=== PATIENT | female | born 1945 | race Caucasian/White ===

== ENCOUNTER 2019-07-20 06:36 | Day surgery (SDC) | payer MEDICARE, OTHER ==
[2019-07-19 09:37] VITALS: BMI 23.2
[~2019-07-20 06:36] MED LIST: HEPARIN SODIUM,PORCINE 5,000 UNIT/ML 1 ML VIAL SQ ONE; Pre Op ABX Message 1 EACH MISC MISCELLANE ONE
[2019-07-20] MEDS ORDERED: MORPHINE SULFATE 2 MG/ML SYRINGE IV PRN (06:42)
[2019-07-20] MEDS ORDERED: LACTATED RINGERS 1,000 ML IV SCH (06:42)
[2019-07-20] MEDS ORDERED: LIDOCAINE 1% 20 ML VIAL (10MG/ML) FOR IV START INTRADERMA PRN (06:42)
[2019-07-20] MEDS ORDERED: DEXAMETHASONE SOD PHOSPHATE 10 MG/ML 1 ML VIAL IV ONE (06:42)
[2019-07-20] MEDS ORDERED: ONDANSETRON 4 MG/2 ML VIAL IVP PRN (06:42)
[2019-07-20] MEDS ORDERED: ONDANSETRON 4 MG/2 ML VIAL IVP ONE (06:42)
[2019-07-20 07:01] VITALS: TEMP 98.4
[2019-07-20] MEDS ORDERED: MIDAZOLAM 2 MG/2 ML VIAL ONE (07:40)
[2019-07-20] MEDS ORDERED: PROPOFOL 10 MG/ML 20 ML VIAL IV ONE (07:40)
[2019-07-20] MEDS ORDERED: fentaNYL (PF) 50 MCG/ML 2 ML AMP ONE (07:40)
[2019-07-20] MEDS ORDERED: ceFAZolin 1,000 MG VIAL IVPB ONE (07:45)
--- NOTE | 2019-07-20 07:54 | P.GSHP ---
History of Present Illness H&P Date: 07/20/19 Chief Complaint: right lower extremity squamous cell carcinoma, left lower e xtremity [place] this is a 74-year-old female who underwent previous skin biopsy by Dr. Chan. Patient's found have a right lower extremity squamous cell carcinoma and a left lower extremity keratocanthoma. She presents today for excision. Past Medical History Past Medical History: GERD/Reflux, Hypertension, Vascular Disorder Additional Past Medical History / Comment(s): hx bleeding ulcer. wound left foot. lt leg swelling since bypass. loud ringing in ears History of Any Multi-Drug Resistant Organisms: None Reported Past Surgical History: Joint Replacement Additional Past Surgical History / Comment(s): lt leg bypass x3 with stent in groin, lt hip replacement, rt foot with hardware Past Anesthesia/Blood Transfusion Reactions: Previous Problems w/ Anesthesia Additional Past Anesthesia/Blood Transfusion Reaction / Comment(s): after foot surgery developed loud ringing in ears which continues Past Psychological History: No Psychological Hx Reported Smoking Status: Former smoker Past Alcohol Use History: Daily Additional Past Alcohol Use History / Comment(s): 06/28/16 quit smoking Past Drug Use History: None Reported - Past Family History Mother Family Medical History: Unable to Obtain Medications and Allergies Home Medications Medication Instructions Recorded Confirmed Type Ferrous Sulfate [Feosol] 325 mg PO DAILY 07/19/19 07/19/19 History Lansoprazole [Prevacid] 30 mg PO DAILY 07/19/19 07/19/19 History amLODIPine [Norvasc] 5 mg PO DAILY 07/19/19 07/19/19 History hydrALAZINE HCL [Apresoline] 25 mg PO Q48H 07/19/19 07/19/19 History traMADol HCL 50 mg PO BID PRN 07/19/19 07/19/19 History Allergies Allergy/AdvReac Type Severity Reaction Status Date / Time adhesive Allergy skin Verified 07/19/19 09:20 breaks down Surgical - Exam Vital Signs Temp Pulse Resp BP Pulse Ox 98.4 F 94 20 153/81 96 07/20/19 06:59 07/20/19 06:59 07/20/19 06:59 07/20/19 06:59 07/20/19 06:59 - General well developed, well nourished, no distress - Eyes PERRL - ENT normal pinna - Neck no masses - Respiratory normal expansion - Cardiovascular Rhythm: regular - Abdomen Abdomen: soft, non tender - Integumentary 2 cm squamous cell carcinoma of right lower extremity, 1.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 We'll perform excision.
[2019-07-20] MEDS ORDERED: BUPIVACAIN-EPI 0.25%-1:200,000 30 ML VIAL SQ ONE ×3 (08:03)
[2019-07-20 08:35] VITALS: RESP 18
[2019-07-20 08:50] VITALS: BP 124/79; PULSE 72
--- NOTE | 2019-07-20 09:01 | P.OP ---
Date of Procedure: 07/20/19 Preoperative Diagnosis: Right lower extremity squamous cell carcinoma Left lower extremity Keratocanthoma Postoperative Diagnosis: Same Procedure(s) Performed: Wide local excision of left and right lower extremity skin lesion Anesthesia: MAC, local Surgeon: Darrel Bhatia Estimated Blood Loss (ml): 5 Pathology: other (Right and left lower extremity skin lesion) Condition: stable Disposition: PACU Description of Procedure: The patient's placed on the operating table in supine position. She received IV sedation. Her lower extremities were prepped and draped usual sterile fashion. The right lower*the lesion was excised first. The area was anesthetized 1% local Xylocaine. An elliptical skin incision was made around the skin lesion using a 10 blade. The specimen was dissected using left cautery. The wound was inspected for hemostasis. The skin was closed interrupted 3-0 Monocryl suture. A marking stitch was placed on the cephalad portion specimen. The specimen measured 3 x 2 cm The specimen was sent to pathology.. Next the left lower extremity skin lesion was anesthetized with 1% local Xylocaine. Using a 15 blade the skin was incised in elliptical fashion. The Bovie hemostasis. The specimen sent to pathology, a marking stitch was placed on the cephalad portion of the specimen. Specimen measured 2 x 3 cm The wound was closed with 3-0 nylon suture. Sterile dressing was applied. The patient tolerated the procedure well and sent to recovery room in stable condition.
== END 2019-07-20 09:35 | disposition home or self-care (01) ==
LOC: OR 06:36
PROVIDERS: ATTEND Surgery
DX: C44.721 Squamous cell carcinoma of skin of unspecified lower limb, including hip (principal); L57.0 Actinic keratosis; L72.0 Epidermal cyst; K21.9 Gastro-esophageal reflux disease without esophagitis; I10 Essential (primary) hypertension; H93.19 Tinnitus, unspecified ear; I73.9 Peripheral vascular disease, unspecified; Z87.891 Personal history of nicotine dependence; Z79.899 Other long term (current) drug therapy; Z96.642 Presence of left artificial hip joint; Z91.048 Other nonmedicinal substance allergy status; Z87.19 Personal history of other diseases of the digestive system; Z95.820 Peripheral vascular angioplasty status with implants and grafts
CPT/HCPCS: 88305; 11403; 11402; J2250; J1100; J2405; J0690; J3010; J2704

== ENCOUNTER 2020-06-14 00:14 | Inpatient (IN) | payer MEDICARE, OTHER ==
[2020-06-14] MEDS ORDERED: MORPHINE SULFATE 4 MG/ML SYRINGE IV STA ×2 (00:57→03:06)
[2020-06-14] MEDS ORDERED: SODIUM CHLORIDE 0.9% 500 ML 500 ML IV STA (00:57)
[2020-06-14 03:02] LABS: ALT 82 U/L (4-34); AST 272 U/L (14-36); Albumin 2.4 g/dL (3.5-5.0); Alcohol 75 mg/dL; Alkaline Phosphatase 194 U/L (38-126); Blood Urea Nitrogen 50 mg/dL (7-17); Calcium 8.7 mg/dL (8.4-10.2); Chloride 101 mmol/L (98-107); Magnesium 2.4 mg/dL (1.6-2.3); Sodium 125 mmol/L (137-145); Total Bilirubin 4.9 mg/dL (0.2-1.3); Total Protein 6.1 g/dL (6.3-8.2)
[2020-06-14 03:07] LABS: African American GFR (CKD) 15 (>60 ml/min/1.73 sqM); Non-African American GFR(CKD) 13 (>60 ml/min/1.73 sqM)
[2020-06-14 03:11] LABS: Glucose 23 mg/dL (74-99)
[2020-06-14 03:12] LABS: Carbon Dioxide <5 mmol/L (22-30)
[2020-06-14] MEDS ORDERED: SODIUM CHLORIDE 0.9% 1,000 ML IV ONE (03:15)
[2020-06-14] MEDS ORDERED: DEXTROSE 50% SYRINGE 50 ML IVP STA ×2 (03:16→07:29)
[2020-06-14] MEDS ORDERED: SODIUM BICARB 8.4% 50 ML SYR (1 MEQ/ML) IV STA (03:17)
[2020-06-14 03:18] LABS: Anisocytosis Slight; HCT 34.6 % (34.0-46.0); HGB 9.3 gm/dL (11.4-16.0); Hypochromasia Marked; MCH 27.2 pg (25.0-35.0); MCHC 26.8 g/dL (31.0-37.0); MCV 101.3 fL (80.0-100.0); Macrocytosis Moderate; Mean Platelet Volume 10.2; Platelet Count 125 k/uL (150-450); RBC 3.42 m/uL (3.80-5.40); RDW 18.4 % (11.5-15.5)
[2020-06-14] MEDS ORDERED: CALCIUM GLUCONATE 1 GM in SODIUM CHLORIDE 0.9% 100 ML IVPB ONE ×2 (03:18→16:00)
[2020-06-14 03:21] LABS: Glucose,Whole Blood 33 mg/dL (75-99)
[2020-06-14 03:59] LABS: Glucose,Whole Blood 99 mg/dL (75-99)
[2020-06-14 04:13] LABS: Band Neutrophils % 28 %; Large Platelets Present; Lymphocytes # (M) 0.69 k/uL (1.0-4.8); Metamyelocytes # (M) 0.23 k/uL (0); Metamyelocytes % 1 %; Monocytes # (M) 2.07 k/uL (0-1.0); Neutrophils % (M) 59 %; Nucleated Red Blood Cells 0 /100 WBC (0-0); Total Cells Counted 100
[2020-06-14 04:15] LABS: Basophilic Stippling Present
[2020-06-14] MEDS ORDERED: VANCOMYCIN IV PER PHARMACY 1 EACH MISC MISCELLANE PRN (04:18)
[2020-06-14] MEDS ORDERED: VANCOMYCIN 1,000 MG in SODIUM CHLORIDE 0.9% 250 ML IVPB STA (04:23)
[2020-06-14] MEDS ORDERED: ACETAMINOPHEN TAB 325 MG TAB PO STA (04:45)
--- NOTE | 2020-06-14 04:56 | ED ---
General Adult HPI - General Chief complaint: Fall Stated complaint: Fall Time Seen by Provider: 06/14/20 00:20 Source: patient, EMS Mode of arrival: EMS Limitations: no limitations - History of Present Illness Initial comments: this patient is a 75-year-old womanbrought by ambulance to have evaluation for generalized weakness. The patient states had phoned EMS tonightafter she had slumped to the ground and not been able to get up due to generalized weakness. The patient does note that over the past few days to a little over a week or so,she has been having worsening of bilateral leg pain, which she describes as burning and aching. The pain is worse if she touches her legs or with movements. She has noted that there has been weeping from ulcerations going back longer than that. Patient has not noted fever or chills. No chest pain or dyspnea. No cough. -: days(s) Location: left, right, lower extremity Radiation: non-radiation Quality: burning Consistency: constant Improves with: none Worsens with: movement Associated Symptoms: weakness Treatments Prior to Arrival: none - Related Data Home Medications Medication Instructions Recorded Confirmed Ferrous Sulfate [Feosol] 325 mg PO DAILY 07/19/19 06/14/20 amLODIPine [Norvasc] 5 mg PO DAILY 07/19/19 06/14/20 Furosemide [Lasix] 20 mg PO DAILY 06/14/20 06/14/20 Vit C/E/Zn/Coppr/Lutein/Zeaxan 2 cap PO DAILY 06/14/20 06/14/20 [Preservision Areds 2 Softgel] Allergies Allergy/AdvReac Type Severity Reaction Status Date / Time adhesive Allergy skin Verified 06/14/20 09:20 breaks down Review of Systems ROS Statement: Those systems with pertinent positive or pertinent negative responses have been documented in the HPI. ROS Other: All systems not noted in ROS Statement are negative. Constitutional: Reports: weakness. Denies: fever, chills Respiratory: Denies: cough, dyspnea, wheezes Cardiovascular: Reports: edema. Denies: chest pain, palpitations, dyspnea on exertion, orthopnea Gastrointestinal: Denies: abdominal pain, nausea, vomiting, diarrhea, constipation Genitourinary: Denies: dysuria, hematuria Musculoskeletal: Denies: back pain Skin: Reports: lesions (leg ulcers). Denies: rash Neurological: Denies: headache, weakness, numbness Past Medical History Past Medical History: GERD/Reflux, Hypertension, Vascular Disorder Additional Past Medical History / Comment(s): hx bleeding ulcer. wound left foot. lt leg swelling since bypass. loud ringing in ears History of Any Multi-Drug Resistant Organisms: None Reported Past Surgical History: Joint Replacement Additional Past Surgical History / Comment(s): lt leg bypass x3 with stent in groin, lt hip replacement, rt foot with hardware Past Anesthesia/Blood Transfusion Reactions: Previous Problems w/ Anesthesia Additional Past Anesthesia/Blood Transfusion Reaction / Comment(s): after foot surgery developed loud ringing in ears which continues Past Psychological History: No Psychological Hx Reported Past Alcohol Use History: Daily Past Drug Use History: None Reported - Past Family History Mother Family Medical History: Unable to Obtain General Exam Limitations: no limitations General appearance: alert, in no apparent distress Head exam: Present: atraumatic, normocephalic Eye exam: Present: normal appearance. Absent: scleral icterus, conjunctival injection ENT exam: Present: mucous membranes dry Neck exam: Present: normal inspection, full ROM. Absent: tenderness, meningismus Respiratory exam: Absent: respiratory distress, wheezes, rales, rhonchi, stridor Cardiovascular Exam: Present: regular rate, normal rhythm GI/Abdominal exam: Present: soft. Absent: distended, tenderness, guarding, rebound, rigid, mass Extremities exam: Present: normal inspection, normal capillary refill, pedal edema. Absent: calf tenderness Back exam: Present: normal inspection. Absent: CVA tenderness (R), CVA tenderness (L) Neurological exam: Present: alert, CN II-XII intact Skin exam: Present: warm, dry, intact, normal color. Absent: rash Course Vital Signs 06/14/20 06/14/20 06/14/20 00:15 01:31 01:50 Temperature 93.4 F L Pulse Rate 77 69 Respiratory 18 18 Rate Blood Pressure 96/55 104/62 O2 Sat by Pulse 99 97 Oximetry 06/14/20 06/14/20 06/14/20 03:16 03:31 05:10 Temperature 93.7 F L Pulse Rate 90 93 98 Respiratory 16 Rate Blood Pressure 87/59 110/69 88/58 O2 Sat by Pulse 98 Oximetry 06/14/20 06/14/20 06/14/20 05:41 06:48 08:00 Temperature 97.3 F L 97.3 F L 97.3 F L Pulse Rate 99 90 Respiratory 18 16 Rate Blood Pressure 99/59 91/70 O2 Sat by Pulse 98 98 Oximetry 06/14/20 06/14/20 06/14/20 09:00 10:00 11:00 Temperature 97.4 F L Pulse Rate 82 72 79 Respiratory 16 16 16 Rate Blood Pressure 86/57 90/48 98/59 O2 Sat by Pulse 98 98 98 Oximetry 06/14/20 06/14/20 06/14/20 12:00 13:00 14:00 Temperature Pulse Rate 72 72 77 Respiratory 16 16 16 Rate Blood Pressure 101/57 100/60 101/61 O2 Sat by Pulse 98 98 99 Oximetry 06/14/20 14:44 Temperature 97.4 F L Pulse Rate 77 Respiratory 16 Rate Blood Pressure 101/61 O2 Sat by Pulse 99 Oximetry - Reevaluation(s) Reevaluation #1: 06/14/20 04:55 after discussions with patient, she expresses desire for no intubation/no code She does want medical therapy including antibiotics, pain medication. Medical Decision Making - Medical Decision Making patient 75-year-old woman transferred here for weakness and found to have significant bilateral lower extremity stasis ulcers. Note that we did recommend central line placement for this patient for multiple medications and fluids, but patient is declining. She is admittedto have further evaluation and treatment as well as having surgical consultation, nephrology consultation - Lab Data Result diagrams: 06/19/20 07:16 06/20/20 08:15 Lab Results 06/14/20 06/14/20 06/14/20 Range/Units 02:30 02:30 02:30 WBC 23.0 H (3.8-10.6) k/uL RBC 3.42 L (3.80-5.40) m/uL Hgb 9.3 L (11.4-16.0) gm/dL Hct 34.6 (34.0-46.0) % MCV 101.3 H (80.0-100.0) fL MCH 27.2 (25.0-35.0) pg MCHC 26.8 L (31.0-37.0) g/dL RDW 18.4 H (11.5-15.5) % Plt Count 125 L (150-450) k/uL Neutrophils % (Manual) 59 % Band Neuts % (Manual) 28 % Lymphocytes % (Manual) 3 % Monocytes % (Manual) 9 % Metamyelocytes % 1 % Neutrophils # (Manual) 20.00 H (1.3-7.7) k/uL Lymphocytes # (Manual) 0.69 L (1.0-4.8) k/uL Monocytes # (Manual) 2.07 H (0-1.0) k/uL Metamyelocytes # (Man) 0.23 H (0) k/uL Nucleated RBCs 0 (0-0) /100 WBC Manual Slide Review Performed Large Platelets Present Hypochromasia Marked Basophilic Stippling Present Anisocytosis Slight Macrocytosis Moderate Sodium 125 L (137-145) mmol/L Potassium 7.0 H* (3.5-5.1) mmol/L Chloride 101 (98-107) mmol/L Carbon Dioxide <5 L* (22-30) mmol/L Anion Gap mmol/L BUN 50 H (7-17) mg/dL Creatinine 3.34 H (0.52-1.04) mg/dL Est GFR (CKD-EPI)AfAm 15 (>60 ml/min/1.73 sqM) Est GFR (CKD-EPI)NonAf 13 (>60 ml/min/1.73 sqM) Glucose 23 L* (74-99) mg/dL POC Glucose (mg/dL) (75-99) mg/dL POC Glu Rope Tier ID Lactic Ac Sepsis Rflx Plasma Lactic Acid Levi 10.1 H* (0.7-2.0) mmol/L Calcium 8.7 (8.4-10.2) mg/dL Magnesium 2.4 H (1.6-2.3) mg/dL Total Bilirubin 4.9 H (0.2-1.3) mg/dL AST 272 H (14-36) U/L ALT 82 H (4-34) U/L Alkaline Phosphatase 194 H (38-126) U/L Total Protein 6.1 L (6.3-8.2) g/dL Albumin 2.4 L (3.5-5.0) g/dL Serum Alcohol 75 mg/dL 06/14/20 06/14/20 06/14/20 Range/Units 03:11 03:18 03:57 WBC (3.8-10.6) k/uL RBC (3.80-5.40) m/uL Hgb (11.4-16.0) gm/dL Hct (34.0-46.0) % MCV (80.0-100.0) fL MCH (25.0-35.0) pg MCHC (31.0-37.0) g/dL RDW (11.5-15.5) % Plt Count (150-450) k/uL Neutrophils % (Manual) % Band Neuts % (Manual) % Lymphocytes % (Manual) % Monocytes % (Manual) % Metamyelocytes % % Neutrophils # (Manual) (1.3-7.7) k/uL Lymphocytes # (Manual) (1.0-4.8) k/uL Monocytes # (Manual) (0-1.0) k/uL Metamyelocytes # (Man) (0) k/uL Nucleated RBCs (0-0) /100 WBC Manual Slide Review Large Platelets Hypochromasia Basophilic Stippling Anisocytosis Macrocytosis Sodium (137-145) mmol/L Potassium (3.5-5.1) mmol/L Chloride (98-107) mmol/L Carbon Dioxide (22-30) mmol/L Anion Gap mmol/L BUN (7-17) mg/dL Creatinine (0.52-1.04) mg/dL Est GFR (CKD-EPI)AfAm (>60 ml/min/1.73 sqM) Est GFR (CKD-EPI)NonAf (>60 ml/min/1.73 sqM) Glucose (74-99) mg/dL POC Glucose (mg/dL) 33 L 99 (75-99) mg/dL POC Glu Rope Tier ID Lina Preciado McKenna Lactic Ac Sepsis Rflx Y Plasma Lactic Acid Levi (0.7-2.0) mmol/L Calcium (8.4-10.2) mg/dL Magnesium (1.6-2.3) mg/dL Total Bilirubin (0.2-1.3) mg/dL AST (14-36) U/L ALT (4-34) U/L Alkaline Phosphatase (38-126) U/L Total Protein (6.3-8.2) g/dL Albumin (3.5-5.0) g/dL Serum Alcohol mg/dL 06/14/20 Range/Units 05:32 WBC (3.8-10.6) k/uL RBC (3.80-5.40) m/uL Hgb (11.4-16.0) gm/dL Hct (34.0-46.0) % MCV (80.0-100.0) fL MCH (25.0-35.0) pg MCHC (31.0-37.0) g/dL RDW (11.5-15.5) % Plt Count (150-450) k/uL Neutrophils % (Manual) % Band Neuts % (Manual) % Lymphocytes % (Manual) % Monocytes % (Manual) % Metamyelocytes % % Neutrophils # (Manual) (1.3-7.7) k/uL Lymphocytes # (Manual) (1.0-4.8) k/uL Monocytes # (Manual) (0-1.0) k/uL Metamyelocytes # (Man) (0) k/uL Nucleated RBCs (0-0) /100 WBC Manual Slide Review Large Platelets Hypochromasia Basophilic Stippling Anisocytosis Macrocytosis Sodium (137-145) mmol/L Potassium (3.5-5.1) mmol/L Chloride (98-107) mmol/L Carbon Dioxide (22-30) mmol/L Anion Gap mmol/L BUN (7-17) mg/dL Creatinine (0.52-1.04) mg/dL Est GFR (CKD-EPI)AfAm (>60 ml/min/1.73 sqM) Est GFR (CKD-EPI)NonAf (>60 ml/min/1.73 sqM) Glucose (74-99) mg/dL POC Glucose (mg/dL) (75-99) mg/dL POC Glu Rope Tier ID Lactic Ac Sepsis Rflx Plasma Lactic Acid Levi 8.5 H* (0.7-2.0) mmol/L Calcium (8.4-10.2) mg/dL Magnesium (1.6-2.3) mg/dL Total Bilirubin (0.2-1.3) mg/dL AST (14-36) U/L ALT (4-34) U/L Alkaline Phosphatase (38-126) U/L Total Protein (6.3-8.2) g/dL Albumin (3.5-5.0) g/dL Serum Alcohol mg/dL Critical Care Time Critical Care Time: Yes (40 minutes) Disposition Clinical Impression: Lower extremity cellulitis, Septic shock, Generalized weakness, Hyperkalemia Disposition: ADMITTED IP TO THIS HOSP Condition: Critical
[2020-06-14] MEDS ORDERED: MORPHINE SULFATE 2 MG/ML SYRINGE IVP STA (05:01)
[2020-06-14] MEDS ORDERED: PIPERACILLIN-TAZOBACTAM 3.375 GM in SODIUM CHLORIDE 0.9% 100 ML IVPB ONE (05:45)
[2020-06-14 06:03] LABS: ALT 86 U/L (4-34); AST 337 U/L (14-36); Albumin 2.1 g/dL (3.5-5.0); Alkaline Phosphatase 172 U/L (38-126); Blood Urea Nitrogen 49 mg/dL (7-17); Calcium 8.5 mg/dL (8.4-10.2); Chloride 104 mmol/L (98-107); Sodium 128 mmol/L (137-145); Total Bilirubin 4.6 mg/dL (0.2-1.3); Total Protein 5.7 g/dL (6.3-8.2)
[2020-06-14 06:08] LABS: African American GFR (CKD) 16 (>60 ml/min/1.73 sqM); Non-African American GFR(CKD) 14 (>60 ml/min/1.73 sqM)
[2020-06-14] MEDS ORDERED: SODIUM CHLORIDE 0.9% 500 ML 500 ML IV ONE (06:09)
[2020-06-14 06:11] LABS: Carbon Dioxide <5 mmol/L (22-30); Glucose 47 mg/dL (74-99)
[2020-06-14 06:12] LABS: Potassium 6.4 mmol/L (3.5-5.1)
[2020-06-14 07:19] LABS: Glucose,Whole Blood 53 mg/dL (75-99)
[2020-06-14 08:18] LABS: Glucose,Whole Blood 108 mg/dL (75-99)
[2020-06-14] MEDS: FAMOTIDINE 20 MG/2 ML VIAL IV SCH ×2 (08:31→21:20)
[2020-06-14] MEDS ORDERED: SODIUM CHLORIDE 0.9% 500 ML 250 ML IV ONE (10:23)
[2020-06-14] MEDS: SODIUM CHLORIDE 0.9% 1,000 ML IV SCH ×2 (12:39→21:21)
--- NOTE | 2020-06-14 13:31 | XR ---
EXAMINATION TYPE: XR chest 1V portable DATE OF EXAM: 06/14/2020 CLINICAL HISTORY: CHF. TECHNIQUE: Portable frontal view of the chest. COMPARISON: None FINDINGS: The cardiomediastinal silhouette is within normal limits for size. Pulmonary vasculature i s normal. Patchy airspace opacity over the right infrahilar lung bases. Subsegmental atelectasis over the left mid lung. No pleural effusion, or pneumothorax seen. Old right healed fracture deformities. . IMPRESSION: Right infrahilar airspace opacity may represent atelectasis and/or pneumonia..
[2020-06-14] MEDS: PIPERACILLIN-TAZOBACTAM 3.375 GM in SODIUM CHLORIDE 0.9% 100 ML IVPB SCH ×2 (14:57→21:20)
[2020-06-14] MEDS ORDERED: SODIUM POLYSTYRENE SULFONATE 15 GM/60 ML BOTTLE PO STA (15:05)
[2020-06-14] MEDS ORDERED: ACETAMINOPHEN TAB 325 MG TAB PO PRN (15:06)
--- NOTE | 2020-06-14 15:21 | P.HPIM ---
History of Present Illness 75-year-old womanbrought by ambulance to have evaluation for generalized weakness. The patient states had phoned EMS tonightafter she had slumped to the ground and not been able to get up due to generalized weakness. The patient does note that over the past few days to a little over a week or so,she has been having worsening of bilateral leg pain, which she describes as burning and aching. The pain is worse if she touches her legs or with movements. She has noted that there has been weeping from ulcerations going back longer than that. Patient has not noted fever or chills. No chest pain or dyspnea. No cough. She is found to be severely septic with bilateral extensive cellulitis and with gangrene patient has is discoloration of both legs going on for about 2 months. Had gangrenous changes extend up to both knees. Patient has highly elevated liver blood cell count of 22,000 patient was started on vancomycin and Zosyn. Patient has significant other provided abnormalities including highly elevated potassium of 6.4 low sodium. Severe metabolic acidosis. Highly elevated lactic acid of around 8.4 patient has borderline blood pressure received multiple boluses of IV fluids patient will be started on 125 mL of normal saline. Patient has elevated liver enzymes secondary to shock liver. Chest x-ray mild perihilar infiltrate. Patient lives with her at home. Review of Systems REVIEW OF SYSTEMS: CONSTITUTIONAL: No fever, no malaise, no fatigue. HEENT: No recent visual problems or hearing problems. Denied any sore throat. CARDIOVASCULAR: No chest pain, orthopnea, PND, no palpitations, no syncope. PULMONARY: No shortness of breath, no cough, no hemoptysis. GASTROINTESTINAL: No diarrhea, no nausea, no vomiting, no abdominal pain. NEUROLOGICAL: No headaches, no weakness, no numbness. HEMATOLOGICAL: Denies any bleeding or petechiae. GENITOURINARY: Denies any burning micturition, frequency, or urgency. MUSCULOSKELETAL/RHEUMATOLOGICAL: As mentioned in HPI ENDOCRINE: Denies any polyuria or polydipsia. The rest of the 14-point review of systems is negative. Past Medical History Past Medical History: GERD/Reflux, Hypertension, Vascular Disorder Additional Past Medical History / Comment(s): hx bleeding ulcer. wound left foot. lt leg swelling since bypass. loud ringing in ears History of Any Multi-Drug Resistant Organisms: None Reported Past Surgical History: Joint Replacement Additional Past Surgical History / Comment(s): lt leg bypass x3 with stent in groin, lt hip replacement, rt foot with hardware Past Anesthesia/Blood Transfusion Reactions: Previous Problems w/ Anesthesia Additional Past Anesthesia/Blood Transfusion Reaction / Comment(s): after foot surgery developed loud ringing in ears which continues Past Psychological History: No Psychological Hx Reported Past Alcohol Use History: Daily Past Drug Use History: None Reported - Past Family History Mother Family Medical History: Unable to Obtain Medications and Allergies Home Medications Medication Instructions Recorded Confirmed Type Ferrous Sulfate [Feosol] 325 mg PO DAILY 07/19/19 06/14/20 History amLODIPine [Norvasc] 5 mg PO DAILY 07/19/19 06/14/20 History Furosemide [Lasix] 20 mg PO DAILY 06/14/20 06/14/20 History Vit C/E/Zn/Coppr/Lutein/Zeaxan 2 cap PO DAILY 06/14/20 06/14/20 History [Preservision Areds 2 Softgel] Allergies Allergy/AdvReac Type Severity Reaction Status Date / Time adhesive Allergy skin Verified 06/14/20 09:20 breaks down Physical Exam Vitals: Vital Signs Temp Pulse Resp BP Pulse Ox 06/14/20 14:44 97.4 F L 77 16 101/61 99 06/14/20 14:00 77 16 101/61 99 06/14/20 13:00 72 16 100/60 98 06/14/20 12:00 72 16 101/57 98 06/14/20 11:00 79 16 98/59 98 06/14/20 10:00 72 16 90/48 98 06/14/20 09:00 97.4 F L 82 16 86/57 98 06/14/20 08:00 97.3 F L 90 16 91/70 98 06/14/20 06:48 97.3 F L 99 18 99/59 98 06/14/20 05:41 97.3 F L 06/14/20 05:10 98 16 88/58 98 06/14/20 03:31 93.7 F L 93 110/69 06/14/20 03:16 90 87/59 06/14/20 01:50 93.4 F L 06/14/20 01:31 69 18 104/62 97 11/07/20 00:15 77 18 96/55 99 Intake and Output 06/14/20 06/14/20 06/14/20 06:59 14:59 22:59 Output Total 225 Balance -225 Output: Urine 225 Uretheral (Fischer) 225 Other: Weight 54.431 kg PHYSICAL EXAMINATION: GENERAL: The patient is alert and oriented x3, not in any acute distress. Well developed, well nourished. HEENT: Pupils are round and equally reacting to light. EOMI. No scleral icterus. No conjunctival pallor. Normocephalic, atraumatic. No pharyngeal erythema. No thyromegaly. CARDIOVASCULAR: S1 and S2 present. No murmurs, rubs, or gallops. PULMONARY: Chest is clear to auscultation, no wheezing or crackles. ABDOMEN: Soft, nontender, nondistended, normoactive bowel sounds. No palpable organomegaly. MUSCULOSKELETAL: No joint swelling or deformity. EXTREMITIES: No cyanosis, clubbing, or pedal edema. NEUROLOGICAL: Gross neurological examination did not reveal any focal deficits. SKIN: Patient has extensive cellulitis and the wet gangrene of both legs extending up to both knees. Results CBC & Chem 7: 06/14/20 02:30 06/14/20 05:47 Labs: Abnormal Lab Results - Last 24 Hours (Table) 06/14/20 06/14/20 06/14/20 Range/Units 02:30 02:30 02:30 WBC 23.0 H (3.8-10.6) k/uL RBC 3.42 L (3.80-5.40) m/uL Hgb 9.3 L (11.4-16.0) gm/dL MCV 101.3 H (80.0-100.0) fL MCHC 26.8 L (31.0-37.0) g/dL RDW 18.4 H (11.5-15.5) % Plt Count 125 L (150-450) k/uL Neutrophils # (Manual) 20.00 H (1.3-7.7) k/uL Lymphocytes # (Manual) 0.69 L (1.0-4.8) k/uL Monocytes # (Manual) 2.07 H (0-1.0) k/uL Metamyelocytes # (Man) 0.23 H (0) k/uL Sodium 125 L (137-145) mmol/L Potassium 7.0 H* (3.5-5.1) mmol/L Carbon Dioxide <5 L* (22-30) mmol/L BUN 50 H (7-17) mg/dL Creatinine 3.34 H (0.52-1.04) mg/dL Glucose 23 L* (74-99) mg/dL POC Glucose (mg/dL) (75-99) mg/dL Plasma Lactic Acid Levi 10.1 H* (0.7-2.0) mmol/L Magnesium 2.4 H (1.6-2.3) mg/dL Total Bilirubin 4.9 H (0.2-1.3) mg/dL AST 272 H (14-36) U/L ALT 82 H (4-34) U/L Alkaline Phosphatase 194 H (38-126) U/L Total Protein 6.1 L (6.3-8.2) g/dL Albumin 2.4 L (3.5-5.0) g/dL 06/14/20 06/14/20 06/14/20 Range/Units 03:18 05:32 05:47 WBC (3.8-10.6) k/uL RBC (3.80-5.40) m/uL Hgb (11.4-16.0) gm/dL MCV (80.0-100.0) fL MCHC (31.0-37.0) g/dL RDW (11.5-15.5) % Plt Count (150-450) k/uL Neutrophils # (Manual) (1.3-7.7) k/uL Lymphocytes # (Manual) (1.0-4.8) k/uL Monocytes # (Manual) (0-1.0) k/uL Metamyelocytes # (Man) (0) k/uL Sodium 128 L (137-145) mmol/L Potassium 6.4 H* (3.5-5.1) mmol/L Carbon Dioxide <5 L* (22-30) mmol/L BUN 49 H (7-17) mg/dL Creatinine 3.21 H (0.52-1.04) mg/dL Glucose 47 L* (74-99) mg/dL POC Glucose (mg/dL) 33 L (75-99) mg/dL Plasma Lactic Acid Levi 8.5 H* (0.7-2.0) mmol/L Magnesium (1.6-2.3) mg/dL Total Bilirubin 4.6 H (0.2-1.3) mg/dL AST 337 H (14-36) U/L ALT 86 H (4-34) U/L Alkaline Phosphatase 172 H (38-126) U/L Total Protein 5.7 L (6.3-8.2) g/dL Albumin 2.1 L (3.5-5.0) g/dL 06/14/20 06/14/20 06/14/20 Range/Units 07:17 08:15 09:15 WBC (3.8-10.6) k/uL RBC (3.80-5.40) m/uL Hgb (11.4-16.0) gm/dL MCV (80.0-100.0) fL MCHC (31.0-37.0) g/dL RDW (11.5-15.5) % Plt Count (150-450) k/uL Neutrophils # (Manual) (1.3-7.7) k/uL Lymphocytes # (Manual) (1.0-4.8) k/uL Monocytes # (Manual) (0-1.0) k/uL Metamyelocytes # (Man) (0) k/uL Sodium (137-145) mmol/L Potassium (3.5-5.1) mmol/L Carbon Dioxide (22-30) mmol/L BUN (7-17) mg/dL Creatinine (0.52-1.04) mg/dL Glucose (74-99) mg/dL POC Glucose (mg/dL) 53 L 108 H (75-99) mg/dL Plasma Lactic Acid Levi 8.6 H* (0.7-2.0) mmol/L Magnesium (1.6-2.3) mg/dL Total Bilirubin (0.2-1.3) mg/dL AST (14-36) U/L ALT (4-34) U/L Alkaline Phosphatase (38-126) U/L Total Protein (6.3-8.2) g/dL Albumin (3.5-5.0) g/dL 06/14/20 Range/Units 13:51 WBC (3.8-10.6) k/uL RBC (3.80-5.40) m/uL Hgb (11.4-16.0) gm/dL MCV (80.0-100.0) fL MCHC (31.0-37.0) g/dL RDW (11.5-15.5) % Plt Count (150-450) k/uL Neutrophils # (Manual) (1.3-7.7) k/uL Lymphocytes # (Manual) (1.0-4.8) k/uL Monocytes # (Manual) (0-1.0) k/uL Metamyelocytes # (Man) (0) k/uL Sodium (137-145) mmol/L Potassium (3.5-5.1) mmol/L Carbon Dioxide (22-30) mmol/L BUN (7-17) mg/dL Creatinine (0.52-1.04) mg/dL Glucose (74-99) mg/dL POC Glucose (mg/dL) (75-99) mg/dL Plasma Lactic Acid Levi 8.4 H* (0.7-2.0) mmol/L Magnesium (1.6-2.3) mg/dL Total Bilirubin (0.2-1.3) mg/dL AST (14-36) U/L ALT (4-34) U/L Alkaline Phosphatase (38-126) U/L Total Protein (6.3-8.2) g/dL Albumin (3.5-5.0) g/dL Assessment and Plan Plan: Severe sepsis or septic shock: Probably secondary to wet gangrene of both legs. Patient the will be started on vancomycin and Zosyn. Infectious disease and vascular surgery were consulted. Patient may need close monitoring considering her lactic is doses severe sepsis and possibility of requirement of pressors eventually I will consult critical care services as well. Patient blood pressure is in 90s systolic in spite of multiple bolus of IV fluids. -Shock liver liver enzymes will be monitored and the elevated liver enzymes secondary to sepsis -Acute renal failure possibly acute tubular necrosis from severe sepsis can you with IV fluids at 1 25 mL per hour, I'll obtain a UA looking for casts. -Severe hyperkalemia secondary to metabolic acidosis will give her a dose of Kayexalate. -Hyponatremia: Hypervolemic hyponatremia. -Severe metabolic acidosis: Patient has both the anion gap and non-anion gap metabolic acidosis anion gap metabolic acidosis secondary to lactic acidosis and uremia -Hypoglycemia: Patient will be closely monitored and patient will be given glucose/sugars here by mouth or IV depending on her blood sugars. -Leukocytosis: Secondary to severe sepsis Her clinical condition is guarded.
--- NOTE | 2020-06-14 17:06 | P.GSCN ---
History of Present Illness History of present illness: 75 old white female, patient came with history of weakness and 2 month history of cellulitis and swelling of the extremity with blister formation patient came with high white cell count of 22,000 and potassium is 6.4 the lactic acidosis and a high liver enzymes patient has history of 4 hypertension and peripheral vascular disease patient had a joint replacement in the past Neck examination neck is supple no bruit appreciated chest examination chest few crackles the lung bases Abdomen soft nontender Femorals are 1+ PTDP not palpable patient has a multiple blister formation with superficial skin necrosis involving the both lower extremity involving mesh medial and lateral aspect of the left lower extremity and dorsal suspect of the foot Plan is patient is on vancomycin and Zosyn and nephrology consult also recommend to have a blood culture and wound culture continue with IV antibiotic with follow with you we'll reevaluate again Past Medical History Past Medical History: GERD/Reflux, Hypertension, Vascular Disorder Additional Past Medical History / Comment(s): hx bleeding ulcer. wound left foot. lt leg swelling since bypass. loud ringing in ears History of Any Multi-Drug Resistant Organisms: None Reported Past Surgical History: Joint Replacement Additional Past Surgical History / Comment(s): lt leg bypass x3 with stent in groin, lt hip replacement, rt foot with hardware Past Anesthesia/Blood Transfusion Reactions: Previous Problems w/ Anesthesia Additional Past Anesthesia/Blood Transfusion Reaction / Comm: after foot surgery developed loud ringing in ears which continues Past Psychological History: No Psychological Hx Reported Past Alcohol Use History: Daily Past Drug Use History: None Reported - Past Family History Mother Family Medical History: Unable to Obtain Medications and Allergies Home Medications Medication Instructions Recorded Confirmed Type Ferrous Sulfate [Feosol] 325 mg PO DAILY 07/19/19 06/14/20 History amLODIPine [Norvasc] 5 mg PO DAILY 07/19/19 06/14/20 History Furosemide [Lasix] 20 mg PO DAILY 06/14/20 06/14/20 History Vit C/E/Zn/Coppr/Lutein/Zeaxan 2 cap PO DAILY 06/14/20 06/14/20 History [Preservision Areds 2 Softgel] Allergies Allergy/AdvReac Type Severity Reaction Status Date / Time adhesive Allergy skin Verified 06/14/20 09:20 breaks down Surgical - Exam Vital Signs Pulse Resp BP Pulse Ox 77 18 96/55 99 06/14/20 00:15 06/14/20 00:15 06/14/20 00:15 06/14/20 00:15 Results - Labs 06/14/20 02:30 06/14/20 05:47 Abnormal Lab Results - Last 24 Hours (Table) 06/14/20 06/14/20 06/14/20 Range/Units 02:30 02:30 02:30 WBC 23.0 H (3.8-10.6) k/uL RBC 3.42 L (3.80-5.40) m/uL Hgb 9.3 L (11.4-16.0) gm/dL MCV 101.3 H (80.0-100.0) fL MCHC 26.8 L (31.0-37.0) g/dL RDW 18.4 H (11.5-15.5) % Plt Count 125 L (150-450) k/uL Neutrophils # (Manual) 20.00 H (1.3-7.7) k/uL Lymphocytes # (Manual) 0.69 L (1.0-4.8) k/uL Monocytes # (Manual) 2.07 H (0-1.0) k/uL Metamyelocytes # (Man) 0.23 H (0) k/uL Sodium 125 L (137-145) mmol/L Potassium 7.0 H* (3.5-5.1) mmol/L Carbon Dioxide <5 L* (22-30) mmol/L BUN 50 H (7-17) mg/dL Creatinine 3.34 H (0.52-1.04) mg/dL Glucose 23 L* (74-99) mg/dL POC Glucose (mg/dL) (75-99) mg/dL Plasma Lactic Acid Levi 10.1 H* (0.7-2.0) mmol/L Magnesium 2.4 H (1.6-2.3) mg/dL Total Bilirubin 4.9 H (0.2-1.3) mg/dL AST 272 H (14-36) U/L ALT 82 H (4-34) U/L Alkaline Phosphatase 194 H (38-126) U/L Total Protein 6.1 L (6.3-8.2) g/dL Albumin 2.4 L (3.5-5.0) g/dL 1106/14/20 06/14/20 Range/Units 03:18 05:32 05:47 WBC (3.8-10.6) k/uL RBC (3.80-5.40) m/uL Hgb (11.4-16.0) gm/dL MCV (80.0-100.0) fL MCHC (31.0-37.0) g/dL RDW (11.5-15.5) % Plt Count (150-450) k/uL Neutrophils # (Manual) (1.3-7.7) k/uL Lymphocytes # (Manual) (1.0-4.8) k/uL Monocytes # (Manual) (0-1.0) k/uL Metamyelocytes # (Man) (0) k/uL Sodium 128 L (137-145) mmol/L Potassium 6.4 H* (3.5-5.1) mmol/L Carbon Dioxide <5 L* (22-30) mmol/L BUN 49 H (7-17) mg/dL Creatinine 3.21 H (0.52-1.04) mg/dL Glucose 47 L* (74-99) mg/dL POC Glucose (mg/dL) 33 L (75-99) mg/dL Plasma Lactic Acid Levi 8.5 H* (0.7-2.0) mmol/L Magnesium (1.6-2.3) mg/dL Total Bilirubin 4.6 H (0.2-1.3) mg/dL AST 337 H (14-36) U/L ALT 86 H (4-34) U/L Alkaline Phosphatase 172 H (38-126) U/L Total Protein 5.7 L (6.3-8.2) g/dL Albumin 2.1 L (3.5-5.0) g/dL 06/14/20 06/14/20 06/14/20 Range/Units 07:17 08:15 09:15 WBC (3.8-10.6) k/uL RBC (3.80-5.40) m/uL Hgb (11.4-16.0) gm/dL MCV (80.0-100.0) fL MCHC (31.0-37.0) g/dL RDW (11.5-15.5) % Plt Count (150-450) k/uL Neutrophils # (Manual) (1.3-7.7) k/uL Lymphocytes # (Manual) (1.0-4.8) k/uL Monocytes # (Manual) (0-1.0) k/uL Metamyelocytes # (Man) (0) k/uL Sodium (137-145) mmol/L Potassium (3.5-5.1) mmol/L Carbon Dioxide (22-30) mmol/L BUN (7-17) mg/dL Creatinine (0.52-1.04) mg/dL Glucose (74-99) mg/dL POC Glucose (mg/dL) 53 L 108 H (75-99) mg/dL Plasma Lactic Acid Levi 8.6 H* (0.7-2.0) mmol/L Magnesium (1.6-2.3) mg/dL Total Bilirubin (0.2-1.3) mg/dL AST (14-36) U/L ALT (4-34) U/L Alkaline Phosphatase (38-126) U/L Total Protein (6.3-8.2) g/dL Albumin (3.5-5.0) g/dL 06/14/20 Range/Units 13:51 WBC (3.8-10.6) k/uL RBC (3.80-5.40) m/uL Hgb (11.4-16.0) gm/dL MCV (80.0-100.0) fL MCHC (31.0-37.0) g/dL RDW (11.5-15.5) % Plt Count (150-450) k/uL Neutrophils # (Manual) (1.3-7.7) k/uL Lymphocytes # (Manual) (1.0-4.8) k/uL Monocytes # (Manual) (0-1.0) k/uL Metamyelocytes # (Man) (0) k/uL Sodium (137-145) mmol/L Potassium (3.5-5.1) mmol/L Carbon Dioxide (22-30) mmol/L BUN (7-17) mg/dL Creatinine (0.52-1.04) mg/dL Glucose (74-99) mg/dL POC Glucose (mg/dL) (75-99) mg/dL Plasma Lactic Acid Levi 8.4 H* (0.7-2.0) mmol/L Magnesium (1.6-2.3) mg/dL Total Bilirubin (0.2-1.3) mg/dL AST (14-36) U/L ALT (4-34) U/L Alkaline Phosphatase (38-126) U/L Total Protein (6.3-8.2) g/dL Albumin (3.5-5.0) g/dL Diabetes panel 06/14/20 06/14/20 Range/Units 02:30 05:47 Sodium 125 L 128 L (137-145) mmol/L Potassium 7.0 H* 6.4 H* (3.5-5.1) mmol/L Chloride 101 104 (98-107) mmol/L Carbon Dioxide <5 L* <5 L* (22-30) mmol/L BUN 50 H 49 H (7-17) mg/dL Creatinine 3.34 H 3.21 H (0.52-1.04) mg/dL Glucose 23 L* 47 L* (74-99) mg/dL Calcium 8.7 8.5 (8.4-10.2) mg/dL AST 272 H 337 H (14-36) U/L ALT 82 H 86 H (4-34) U/L Alkaline Phosphatase 194 H 172 H (38-126) U/L Total Protein 6.1 L 5.7 L (6.3-8.2) g/dL Albumin 2.4 L 2.1 L (3.5-5.0) g/dL Calcium panel 06/14/20 06/14/20 Range/Units 02:30 05:47 Calcium 8.7 8.5 (8.4-10.2) mg/dL Albumin 2.4 L 2.1 L (3.5-5.0) g/dL Pituitary panel 06/14/20 06/14/20 Range/Units 02:30 05:47 Sodium 125 L 128 L (137-145) mmol/L Potassium 7.0 H* 6.4 H* (3.5-5.1) mmol/L Chloride 101 104 (98-107) mmol/L Carbon Dioxide <5 L* <5 L* (22-30) mmol/L BUN 50 H 49 H (7-17) mg/dL Creatinine 3.34 H 3.21 H (0.52-1.04) mg/dL Glucose 23 L* 47 L* (74-99) mg/dL Calcium 8.7 8.5 (8.4-10.2) mg/dL Adrenal panel 06/14/20 06/14/20 Range/Units 02:30 05:47 Sodium 125 L 128 L (137-145) mmol/L Potassium 7.0 H* 6.4 H* (3.5-5.1) mmol/L Chloride 101 104 (98-107) mmol/L Carbon Dioxide <5 L* <5 L* (22-30) mmol/L BUN 50 H 49 H (7-17) mg/dL Creatinine 3.34 H 3.21 H (0.52-1.04) mg/dL Glucose 23 L* 47 L* (74-99) mg/dL Calcium 8.7 8.5 (8.4-10.2) mg/dL Total Bilirubin 4.9 H 4.6 H (0.2-1.3) mg/dL AST 272 H 337 H (14-36) U/L ALT 82 H 86 H (4-34) U/L Alkaline Phosphatase 194 H 172 H (38-126) U/L Total Protein 6.1 L 5.7 L (6.3-8.2) g/dL Albumin 2.4 L 2.1 L (3.5-5.0) g/dL
[2020-06-14 17:14] LABS: Glucose,Whole Blood 74 mg/dL (75-99)
[2020-06-14 19:22] LABS: Glucose,Whole Blood 78 mg/dL (75-99)
[2020-06-14 21:26] LABS: Glucose,Whole Blood 94 mg/dL (75-99)
--- NOTE | 2020-06-14 22:36 | P.CONS ---
History of Present Illness - Reason for Consult Consult date: 06/14/20 Sepsis and cellulitis Requesting physician: Per Bowles - Chief Complaint Weakness and fall x 1 day - History of Present Illness Patient is 75-year-old female well known to my service from previous lower extremity venous stasis ulcer secondary cellulitis for the patient was treated at the [facility] wound care patient is now being brought to the [facility] ER for evaluation of generalized weakness apparently the patient slumped to the ground and has not been able to get up because of generalized weakness and over the last week the patient noticed to be more weaker has been complaining of worsening bilateral leg pain described to be more of a burning in nature and worse if he touches her legs or with movement patient was noticed to have multiple ulceration and weeping of bilateral lower extremity, on arrival to the ER the patient was noticed to be hypothermic and was also used to be hypotensive, patient also noticed to be in renal failure with elevated creatinine and did have elevated lactic acid patient has been treated with broad-spectrum antibiotics in the form of vancomycin and Zosyn and infectious disease was consulted for further management of antibiotic therapy most of the information has been obtained from review the chart as the patient herself was unable to provide a reliable history Review of Systems Positive points has been mentioned in HPI complete review could not be obtained because of his underlying mental status Past Medical History Past Medical History: GERD/Reflux, Hypertension, Vascular Disorder Additional Past Medical History / Comment(s): hx bleeding ulcer. wound left foot. lt leg swelling since bypass. loud ringing in ears History of Any Multi-Drug Resistant Organisms: None Reported Past Surgical History: Joint Replacement Additional Past Surgical History / Comment(s): lt leg bypass x3 with stent in groin, lt hip replacement, rt foot with hardware Past Anesthesia/Blood Transfusion Reactions: Previous Problems w/ Anesthesia Additional Past Anesthesia/Blood Transfusion Reaction / Comm: after foot surgery developed loud ringing in ears which continues Past Psychological History: No Psychological Hx Reported Past Alcohol Use History: Daily Past Drug Use History: None Reported - Past Family History Mother Family Medical History: Unable to Obtain Medications and Allergies Home Medications Medication Instructions Recorded Confirmed Type Ferrous Sulfate [Feosol] 325 mg PO DAILY 07/19/19 06/14/20 History amLODIPine [Norvasc] 5 mg PO DAILY 07/19/19 06/14/20 History Furosemide [Lasix] 20 mg PO DAILY 06/14/20 06/14/20 History Vit C/E/Zn/Coppr/Lutein/Zeaxan 2 cap PO DAILY 06/14/20 06/14/20 History [Preservision Areds 2 Softgel] Allergies Allergy/AdvReac Type Severity Reaction Status Date / Time adhesive Allergy skin Verified 06/14/20 09:20 breaks down Physical Exam Vitals: Vital Signs Temp Pulse Pulse Resp BP BP Pulse Ox 06/14/20 15:16 97.5 F L 79 18 112/55 97 06/14/20 14:44 97.4 F L 77 16 101/61 99 06/14/20 14:00 77 16 101/61 99 06/14/20 13:00 72 16 100/60 98 06/14/20 12:00 72 16 101/57 98 06/14/20 11:00 79 16 98/59 98 06/14/20 10:00 72 16 90/48 98 06/14/20 09:00 97.4 F L 82 16 86/57 98 06/14/20 08:00 97.3 F L 90 16 91/70 98 06/14/20 06:48 97.3 F L 99 18 99/59 98 06/14/20 05:41 97.3 F L 06/14/20 05:10 98 16 88/58 98 06/14/20 03:31 93.7 F L 93 110/69 06/14/20 03:16 90 87/59 06/14/20 01:50 93.4 F L 06/14/20 01:31 69 18 104/62 97 06/14/20 00:15 77 18 96/55 99 Intake and Output 06/14/20 06/14/20 06/14/20 06:59 14:59 22:59 Output Total 225 Balance -225 Output: Urine 225 Uretheral (Fischer) 225 Other: Weight 54.431 kg GENERAL DESCRIPTION: An elderly female lying in bed, no distress. No tachypnea or accessory muscle of respiration use. HEENT: Shows Pallor , no scleral icterus. Oral mucous membrane is dry. No phary ngeal erythema or thrush NECK: Trachea central, no thyromegaly. LUNGS: Unlabored breathing. Decreased breath sound at the base. No wheeze or crackle. HEART: S1, S2, regular rate and rhythm. No loud murmur ABDOMEN: Soft, no tenderness , guarding or rigidity, no organomegaly EXTREMITIES: Bilateral lower extremity with multiple ulceration and some surrounding redness no drainage SKIN: No rash, no masses palpable. NEUROLOGICAL: The patient is lethargic and orientation could not patient remained. Results CBC & Chem 7: 06/14/20 02:30 06/14/20 05:47 Labs: Abnormal Lab Results - Last 24 Hours (Table) 06/14/20 06/14/20 06/14/20 Range/Units 02:30 02:30 02:30 WBC 23.0 H (3.8-10.6) k/uL RBC 3.42 L (3.80-5.40) m/uL Hgb 9.3 L (11.4-16.0) gm/dL MCV 101.3 H (80.0-100.0) fL MCHC 26.8 L (31.0-37.0) g/dL RDW 18.4 H (11.5-15.5) % Plt Count 125 L (150-450) k/uL Neutrophils # (Manual) 20.00 H (1.3-7.7) k/uL Lymphocytes # (Manual) 0.69 L (1.0-4.8) k/uL Monocytes # (Manual) 2.07 H (0-1.0) k/uL Metamyelocytes # (Man) 0.23 H (0) k/uL Sodium 125 L (137-145) mmol/L Potassium 7.0 H* (3.5-5.1) mmol/L Carbon Dioxide <5 L* (22-30) mmol/L BUN 50 H (7-17) mg/dL Creatinine 3.34 H (0.52-1.04) mg/dL Glucose 23 L* (74-99) mg/dL POC Glucose (mg/dL) (75-99) mg/dL Plasma Lactic Acid Levi 10.1 H* (0.7-2.0) mmol/L Magnesium 2.4 H (1.6-2.3) mg/dL Total Bilirubin 4.9 H (0.2-1.3) mg/dL AST 272 H (14-36) U/L ALT 82 H (4-34) U/L Alkaline Phosphatase 194 H (38-126) U/L Total Protein 6.1 L (6.3-8.2) g/dL Albumin 2.4 L (3.5-5.0) g/dL 06/14/20 06/14/20 06/14/20 Range/Units 03:18 05:32 05:47 WBC (3.8-10.6) k/uL RBC (3.80-5.40) m/uL Hgb (11.4-16.0) gm/dL MCV (80.0-100.0) fL MCHC (31.0-37.0) g/dL RDW (11.5-15.5) % Plt Count (150-450) k/uL Neutrophils # (Manual) (1.3-7.7) k/uL Lymphocytes # (Manual) (1.0-4.8) k/uL Monocytes # (Manual) (0-1.0) k/uL Metamyelocytes # (Man) (0) k/uL Sodium 128 L (137-145) mmol/L Potassium 6.4 H* (3.5-5.1) mmol/L Carbon Dioxide <5 L* (22-30) mmol/L BUN 49 H (7-17) mg/dL Creatinine 3.21 H (0.52-1.04) mg/dL Glucose 47 L* (74-99) mg/dL POC Glucose (mg/dL) 33 L (75-99) mg/dL Plasma Lactic Acid Levi 8.5 H* (0.7-2.0) mmol/L Magnesium (1.6-2.3) mg/dL Total Bilirubin 4.6 H (0.2-1.3) mg/dL AST 337 H (14-36) U/L ALT 86 H (4-34) U/L Alkaline Phosphatase 172 H (38-126) U/L Total Protein 5.7 L (6.3-8.2) g/dL Albumin 2.1 L (3.5-5.0) g/dL 06/14/20 06/14/20 06/14/20 Range/Units 07:17 08:15 09:15 WBC (3.8-10.6) k/uL RBC (3.80-5.40) m/uL Hgb (11.4-16.0) gm/dL MCV (80.0-100.0) fL MCHC (31.0-37.0) g/dL RDW (11.5-15.5) % Plt Count (150-450) k/uL Neutrophils # (Manual) (1.3-7.7) k/uL Lymphocytes # (Manual) (1.0-4.8) k/uL Monocytes # (Manual) (0-1.0) k/uL Metamyelocytes # (Man) (0) k/uL Sodium (137-145) mmol/L Potassium (3.5-5.1) mmol/L Carbon Dioxide (22-30) mmol/L BUN (7-17) mg/dL Creatinine (0.52-1.04) mg/dL Glucose (74-99) mg/dL POC Glucose (mg/dL) 53 L 108 H (75-99) mg/dL Plasma Lactic Acid Levi 8.6 H* (0.7-2.0) mmol/L Magnesium (1.6-2.3) mg/dL Total Bilirubin (0.2-1.3) mg/dL AST (14-36) U/L ALT (4-34) U/L Alkaline Phosphatase (38-126) U/L Total Protein (6.3-8.2) g/dL Albumin (3.5-5.0) g/dL 06/14/20 Range/Units 13:51 WBC (3.8-10.6) k/uL RBC (3.80-5.40) m/uL Hgb (11.4-16.0) gm/dL MCV (80.0-100.0) fL MCHC (31.0-37.0) g/dL RDW (11.5-15.5) % Plt Count (150-450) k/uL Neutrophils # (Manual) (1.3-7.7) k/uL Lymphocytes # (Manual) (1.0-4.8) k/uL Monocytes # (Manual) (0-1.0) k/uL Metamyelocytes # (Man) (0) k/uL Sodium (137-145) mmol/L Potassium (3.5-5.1) mmol/L Carbon Dioxide (22-30) mmol/L BUN (7-17) mg/dL Creatinine (0.52-1.04) mg/dL Glucose (74-99) mg/dL POC Glucose (mg/dL) (75-99) mg/dL Plasma Lactic Acid Levi 8.4 H* (0.7-2.0) mmol/L Magnesium (1.6-2.3) mg/dL Total Bilirubin (0.2-1.3) mg/dL AST (14-36) U/L ALT (4-34) U/L Alkaline Phosphatase (38-126) U/L Total Protein (6.3-8.2) g/dL Albumin (3.5-5.0) g/dL Assessment and Plan Assessment: 1- patient presented to hospital with sepsis/septic shock in this patient who did have a hypothermia hypotension did have elevated white count in this patient who did have multiple ulceration to bilateral lower extremity and concern for some cellulitis, patient chest x-rays also concern for right infrahilar in filtrate with concern for possible aspiration pneumonia abdominal was soft on clinical examination and no urine has been obtained 2-renal insufficiency and high risk of nephrotoxicity from certain antibiotics (1) Septic shock Current Visit: Yes Status: Acute Code(s): A41.9 - SEPSIS, UNSPECIFIED ORGANISM; R65.21 - SEVERE SEPSIS WITH SEPTIC SHOCK SNOMED Code(s): 34854255 (2) Lower extremity cellulitis Current Visit: Yes Status: Acute Code(s): L03.119 - CELLULITIS OF UNSPECIFIED PART OF LIMB SNOMED Code(s): 434589554 (3) Aspiration pneumonia Current Visit: Yes Status: Acute Code(s): J69.0 - PNEUMONITIS DUE TO INHALATION OF FOOD AND VOMIT SNOMED Code(s): 847333074 Plan: 1- the patient will be continued on Zosyn however discontinue the vancomycin to decrease risk of nephrotoxicity 2-IV fluid 3-local wound care as ordered We will follow on clinical condition and cultures to further adjust medication if needed Thank you for this consultation will follow this patient with you Time with Patient: Greater than 30
[2020-06-14 23:17] LABS: Glucose,Whole Blood 104 mg/dL (75-99)
[2020-06-15 01:19] LABS: Glucose,Whole Blood 111 mg/dL (75-99)
[2020-06-15 03:20] LABS: Glucose,Whole Blood 104 mg/dL (75-99)
[2020-06-15 05:18] LABS: Glucose,Whole Blood 97 mg/dL (75-99)
[2020-06-15] MEDS: SODIUM CHLORIDE 0.9% 1,000 ML IV SCH ×3 (05:49→21:11)
[2020-06-15] MEDS: PIPERACILLIN-TAZOBACTAM 3.375 GM in SODIUM CHLORIDE 0.9% 100 ML IVPB SCH ×2 (05:49→16:16)
[2020-06-15] MEDS ORDERED: VANCOMYCIN 1,000 MG in SODIUM CHLORIDE 0.9% 250 ML IVPB ONE (06:00)
[2020-06-15 07:05] LABS: Appearance,Urine Cloudy (Clear); Bacteria,Urine Many /hpf; Bilirubin,Urine Negative (Negative); Blood,Urine Trace (Negative); Budding Yeast,Urine Moderate /hpf; Color,Urine Yellow; Glucose,Urine (UA) Negative (Negative); Ketones,Urine Negative (Negative); Leukocyte Esterase,Urine Moderate (Negative); Mucus,Urine Rare /hpf; Nitrite,Urine Negative (Negative); Protein,Urine 1+ (Negative); RBC,Urine 38 /hpf (0-5); Specific Gravity,Urine 1.019 (1.001-1.035); Squamous Epithelial Cell,Urine 3 /hpf (0-4); Urobilinogen,Urine <2.0 mg/dL (<2.0); WBC,Urine 5 /hpf (0-5)
[2020-06-15 07:38] LABS: Glucose,Whole Blood 92 mg/dL (75-99)
[2020-06-15] MEDS: FAMOTIDINE 20 MG/2 ML VIAL IV SCH ×2 (08:35→21:10)
[2020-06-15] MEDS ORDERED: SODIUM BICARB 8.4% 50 ML SYR (1 MEQ/ML) IV STA (08:43)
[2020-06-15 08:46] LABS: Anisocytosis Slight; HCT 32.4 % (34.0-46.0); HGB 9.8 gm/dL (11.4-16.0); Hypochromasia Marked; MCH 28.8 pg (25.0-35.0); MCHC 30.1 g/dL (31.0-37.0); Macrocytosis Slight; Mean Platelet Volume 10.8; RBC 3.39 m/uL (3.80-5.40); WBC 24.1 k/uL (3.8-10.6)
[2020-06-15 08:50] LABS: MCV 95.7 fL (80.0-100.0)
[2020-06-15 09:15] LABS: Albumin 2.1 g/dL (3.5-5.0); Calcium 8.3 mg/dL (8.4-10.2); Total Protein 5.7 g/dL (6.3-8.2)
[2020-06-15 09:36] LABS: Glucose,Whole Blood 78 mg/dL (75-99)
--- NOTE | 2020-06-15 09:53 | US ---
EXAMINATION TYPE: US kidneys/renal and bladder DATE OF EXAM: 06/15/2020 COMPARISON: NONE CLINICAL HISTORY: distended stomach, renal issues.. EXAM MEASUREMENTS: Right Kidney: 10.0 x 4.6 x 4.6 cm Left Kidney: 9.3 x 4.7 x 4.5 cm Confused patient scanned in supine position, unable to cooperate with examiner. Extensive leg wounds, unable to roll LLD, or RLD Right Kidney: limited views show no obvious hydronephrosis or masses Left Kidney: limited views show no obvious hydronephrosis or masses Bladder: mayorga, bladder not seen, ascites in pelvis Ascites noted. There is no evidence for hydronephrosis at this point in time. No nephrolithiasis is seen. No elo s are identified. The urinary bladder is anechoic. Bilateral ureteral jets are seen. IMPRESSION: There is evidence of ascites.
[2020-06-15 09:55] LABS: Platelet Count 86 k/uL (150-450)
[2020-06-15 10:01] LABS: Potassium 6.6 mmol/L (3.5-5.1)
--- NOTE | 2020-06-15 10:17 | PN ---
PROGRESS NOTE 75-year-old female patient came to the emergency room yesterday with generalized weakness, pain. Patient has been admitted and evaluated. Patient has a past history of venous stasis ulcer. Patient came with BUN 47, creatinine 3.2 and with high potassium. The patient was seen by Nephrology for consult. Today I have examined her. She has a skin necrosis involving the both lower extremities, medial lateral aspect of the leg with marked swelling on dorsum of the both feet. Posterior tibial and dorsalis pedis by the Doppler. Blood culture negative. Gram stain shows rare polymorph leukocyte and few gram-negative bacilli. X-ray chest shows pneumonia and atelectasis. Patient is confused, but she is responsive to the pain. The patient is no DNR. Discussed with the . The patient will need a major debridement from possible major amputation. Discussed with infectious disease. Recommend to have a bilateral CT of the leg. We will do without contrast because of high BUN and creatinine. Prognosis is guarded. MMODL / IJN: [id number] /
--- NOTE | 2020-06-15 10:41 | XR ---
EXAMINATION TYPE: XR chest 2V DATE OF EXAM: 06/15/2020 COMPARISON: 06/14/2020 HISTORY: Shortness of breath TECHNIQUE: Frontal and lateral views of the chest are obtained. FINDINGS: Scattered senescent parenchymal changes noted. Hyperinflation compatible with COPD. Persistent patchy density right medial lung base may reflect underlying infiltrate. Correlate clinica lly and progress studies are recommended. Heart size is stable. Mediastinal structures are stable and grossly unremarkable. No evidence for hilar prominence. Degenerative changes dorsal spine. IMPRESSION: 1. Persistent patchy density right medial lung base may reflect underlying infiltrate. Correlate clin ically and progress studies are recommended.
--- NOTE | 2020-06-15 11:48 | CT ---
EXAMINATION TYPE: CT lower leg RT wo con DATE OF EXAM: 06/15/2020 COMPARISON: None HISTORY: Open wounds, cellulitis bilateral legs CT DLP: 1230.7 mGycm Automated exposure control for dose reduction was used. Unenhanced CT of the right lower extremity wa s performed from the right groin through the right foot. 3-D reconstruction was obtained at a [facility] workstation. FINDINGS: There is diffuse subcutaneous edema noted to extend from the right groin through the visualized porti ons of the right foot. I suspect diffuse cellulitis. There is evidence for free fluid within the pel vis as well as subcutaneous edema within the lower right anterior abdominal wall. The findings could be related to anasarca as well. I do not see evidence for focal abscess although the lack of contrast does limit evaluation. Several soft tissue ulcerations are noted below the knee. No evidence for fra cture. No osseous lesions are noted. Diffuse vascular calcifications are noted. IMPRESSION: PLEASE LOWER EXTREMITY SUBCUTANEOUS EDEMA MAY BE RELATED TO CELLULITIS. ADDITIONAL CONSIDERATION IS T HAT OF A DIFFUSE ANASARCA. CORRELATE CLINICALLY. NO EVIDENCE FOR ABSCESS OR DRAINABLE COLLECTION.
[2020-06-15] MEDS ORDERED: DEXTROSE 50% SYRINGE 50 ML IVP STA (11:49)
[2020-06-15] MEDS ORDERED: INSULIN REGULAR 100 UNIT/ML VIAL IV ONE (11:50)
[2020-06-15] MEDS ORDERED: DEXTROSE 5% IN WATER 1,000 ML with SODIUM BICARB (1 MEQ/ML) 150 ML IV SCH (12:00)
[2020-06-15 12:03] LABS: Glucose,Whole Blood 108 mg/dL (75-99)
--- NOTE | 2020-06-15 12:34 | CT ---
EXAMINATION TYPE: CT lower leg LT wo con DATE OF EXAM: 06/15/2020 COMPARISON: None EXAMINATION TYPE: CT lower leg LT wo con DATE OF EXAM: 06/15/2020 COMPARISON: None HISTORY: Open wounds, cellulitis bilateral legs CT DLP: 1230.7 mGycm Automated exposure control for dose reduction was used. Unenhanced CT of the left lower extremity was performed from the right groin through the left foot. 3-D reconstruction was obtained at a separate workstation. FINDINGS: There is evidence of left hip prosthesis. There is diffuse subcutaneous edema noted to extend from th e left groin through the visualized portions of the left foot. I suspect diffuse cellulitis. There i s evidence for free fluid within the pelvis as well as subcutaneous edema within the lower right ante rior abdominal wall. The findings could be related to anasarca as well. I do not see evidence for foc al abscess although the lack of contrast does limit evaluation. Soft tissue ulceration is noted above the knee. Subcutaneous clips are noted to be in place. No evidence for fracture. No osseous lesions are noted. Diffuse vascular calcifications are noted. IMPRESSION: LEFT LOWER EXTREMITY SUBCUTANEOUS EDEMA MAY BE RELATED TO CELLULITIS. ADDITIONAL CONSIDERATION IS EV T OF A DIFFUSE ANASARCA. CORRELATE CLINICALLY. NO EVIDENCE FOR ABSCESS OR DRAINABLE COLLECTION.
--- NOTE | 2020-06-15 12:58 | P.PN ---
Subjective 75-year-old womanbrought by ambulance to have evaluation for generalized weakness. The patient states had phoned EMS tonightafter she had s lumped to the ground and not been able to get up due to generalized weakness. The patient does note that over the past few days to a little over a week or so,she has been having worsening of bilateral leg pain, which she describes as burning and aching. The pain is worse if she touches her legs or with movements. She has noted that there has been weeping from ulcerations going back longer than that. Patient has not noted fever or chills. No chest pain or dyspnea. No cough. She is found to be severely septic with bilateral extensive cellulitis and with gangrene patient has is discoloration of both legs going on for about 2 months. Had gangrenous changes extend up to both knees. Patient has highly elevated liver blood cell count of 22,000 patient was started on vancomycin and Zosyn. Patient has significant other provided abnormalities including highly elevated potassium of 6.4 low sodium. Severe metabolic acidosis. Highly elevated lactic acid of around 8.4 patient has borderline blood pressure received multiple boluses of IV fluids patient will be started on 125 mL of normal saline. Patient has elevated liver enzymes secondary to shock liver. Chest x-ray mild perihilar infiltrate. Patient lives with her at home. 06/15/2020 patient was evaluated by vascular surgery and infectious disease patient was started on daptomycin, due to nephrotoxicity of vancomycin patient to histamine Zosyn. Patient has a skin necrosis significant. Vascular surgery does not be lieve debridement is a possibility the other possibility being below knee or bony amputations which are patient doesn't want. Without surgical intervention it's hard to address patient's sepsis because of which had a lengthy discussion along with vascular surgeon with as well as the patient patient and later decided she wanted to be hospice. But she wanted to be continued on antibiotics which will be continued patient is presently on D5 with bicarbonate which will also be continued. Constitutional: internal is tearful N bit of distress Cardio vascular: denied any chest pain, palpitations Gastrointestinal denied any nausea vomiting Pulmonary: Denied any shortness of breath cough Neurologic denied any new focal deficits All inpatient medications were reviewed and appropriate changes in these medications as dictated in the interval history and assessment and plan. Objective - Vital Signs Vital signs: Vital Signs Temp 97.6 F 06/15/20 11:03 Pulse 89 06/15/20 11:03 Resp 18 06/15/20 11:03 BP 119/52 06/15/20 11:03 Pulse Ox 96 06/15/20 11:03 Intake & Output 06/14/20 06/15/20 06/15/20 18:59 06:59 18:59 Intake Total 1600 230 Output Total 225 250 Balance -225 1350 230 Weight 54.431 kg 63.5 kg Intake: Intake, IV Titration 1250 Amount Sodium Chloride 0.9% 1, 1250 000 ml @ 125 mls/hr IV . Q8H [facility] Rx#:[id number] Oral 350 230 Output: Urine 225 250 Uretheral (Fischer) 225 Other: Voiding Method Indwelling Catheter Indwelling Catheter Indwelling Catheter - Exam PHYSICAL EXAMINATION: GENERAL: The patient is alert and oriented x3, not in any acute distress. Well developed, well nourished. HEENT: Pupils are round and equally reacting to light. EOMI. No scleral icterus. No conjunctival pallor. Normocephalic, atraumatic. No pharyngeal erythema. No thyromegaly. CARDIOVASCULAR: S1 and S2 present. No murmurs, rubs, or gallops. PULMONARY: Chest is clear to auscultation, no wheezing or crackles. ABDOMEN: Soft, nontender, nondistended, normoactive bowel sounds. No palpable organomegaly. MUSCULOSKELETAL: No joint swelling or deformity. EXTREMITIES: No cyanosis, clubbing, or pedal edema. NEUROLOGICAL: Gross neurological examination did not reveal any focal deficits. SKIN: Patient has extensive cellulitis and skin necrosis of both legs extending up to both knees. - Labs CBC & Chem 7: 06/15/20 08:14 06/15/20 08:14 Labs: Abnormal Lab Results - Last 24 Hours (Table) 06/14/20 06/14/20 06/14/20 Range/Units 13:51 17:13 17:30 WBC (3.8-10.6) k/uL RBC (3.80-5.40) m/uL Hgb (11.4-16.0) gm/dL Hct (34.0-46.0) % MCHC (31.0-37.0) g/dL RDW (11.5-15.5) % Plt Count (150-450) k/uL Sodium (137-145) mmol/L Potassium (3.5-5.1) mmol/L Carbon Dioxide (22-30) mmol/L BUN (7-17) mg/dL Creatinine (0.52-1.04) mg/dL Glucose (74-99) mg/dL POC Glucose (mg/dL) 74 L (75-99) mg/dL Plasma Lactic Acid Levi 8.4 H* 5.7 H* (0.7-2.0) mmol/L Calcium (8.4-10.2) mg/dL Total Bilirubin (0.2-1.3) mg/dL AST (14-36) U/L ALT (4-34) U/L Alkaline Phosphatase (38-126) U/L Total Protein (6.3-8.2) g/dL Albumin (3.5-5.0) g/dL Urine Appearance (Clear) Urine Protein (Negative) Urine Blood (Negative) Ur Leukocyte Esterase (Negative) Urine RBC (0-5) /hpf Urine Bacteria (None) /hpf Urine Mucus (None) /hpf Urine Yeast (Budding) (None) /hpf 06/14/20 06/14/20 06/15/20 Range/Units 20:28 23:16 00:37 WBC (3.8-10.6) k/uL RBC (3.80-5.40) m/uL Hgb (11.4-16.0) gm/dL Hct (34.0-46.0) % MCHC (31.0-37.0) g/dL RDW (11.5-15.5) % Plt Count (150-450) k/uL Sodium (137-145) mmol/L Potassium (3.5-5.1) mmol/L Carbon Dioxide (22-30) mmol/L BUN (7-17) mg/dL Creatinine (0.52-1.04) mg/dL Glucose (74-99) mg/dL POC Glucose (mg/dL) 104 H (75-99) mg/dL Plasma Lactic Acid Levi 3.7 H* 2.9 H* (0.7-2.0) mmol/L Calcium (8.4-10.2) mg/dL Total Bilirubin (0.2-1.3) mg/dL AST (14-36) U/L ALT (4-34) U/L Alkaline Phosphatase (38-126) U/L Total Protein (6.3-8.2) g/dL Albumin (3.5-5.0) g/dL Urine Appearance (Clear) Urine Protein (Negative) Urine Blood (Negative) Ur Leukocyte Esterase (Negative) Urine RBC (0-5) /hpf Urine Bacteria (None) /hpf Urine Mucus (None) /hpf Urine Yeast (Budding) (None) /hpf 06/15/20 06/15/20 06/15/20 Range/Units 01:16 03:18 05:00 WBC (3.8-10.6) k/uL RBC (3.80-5.40) m/uL Hgb (11.4-16.0) gm/dL Hct (34.0-46.0) % MCHC (31.0-37.0) g/dL RDW (11.5-15.5) % Plt Count (150-450) k/uL Sodium (137-145) mmol/L Potassium (3.5-5.1) mmol/L Carbon Dioxide (22-30) mmol/L BUN (7-17) mg/dL Creatinine (0.52-1.04) mg/dL Glucose (74-99) mg/dL POC Glucose (mg/dL) 111 H 104 H (75-99) mg/dL Plasma Lactic Acid Levi (0.7-2.0) mmol/L Calcium (8.4-10.2) mg/dL Total Bilirubin (0.2-1.3) mg/dL AST (14-36) U/L ALT (4-34) U/L Alkaline Phosphatase (38-126) U/L Total Protein (6.3-8.2) g/dL Albumin (3.5-5.0) g/dL Urine Appearance Cloudy H (Clear) Urine Protein 1+ H (Negative) Urine Blood Trace H (Negative) Ur Leukocyte Esterase Moderate H (Negative) Urine RBC 38 H (0-5) /hpf Urine Bacteria Many H (None) /hpf Urine Mucus Rare H (None) /hpf Urine Yeast (Budding) Moderate H (None) /hpf 06/15/20 06/15/20 06/15/20 Range/Units 05:23 08:14 08:14 WBC 24.1 H (3.8-10.6) k/uL RBC 3.39 L (3.80-5.40) m/uL Hgb 9.8 L (11.4-16.0) gm/dL Hct 32.4 L (34.0-46.0) % MCHC 30.1 L (31.0-37.0) g/dL RDW 19.0 H (11.5-15.5) % Plt Count 86 L (150-450) k/uL Sodium 128 L (137-145) mmol/L Potassium 6.6 H* (3.5-5.1) mmol/L Carbon Dioxide 15 L (22-30) mmol/L BUN 56 H (7-17) mg/dL Creatinine 3.58 H (0.52-1.04) mg/dL Glucose 71 L (74-99) mg/dL POC Glucose (mg/dL) (75-99) mg/dL Plasma Lactic Acid Levi 2.1 H* (0.7-2.0) mmol/L Calcium 8.3 L (8.4-10.2) mg/dL Total Bilirubin 5.0 H (0.2-1.3) mg/dL AST 531 H (14-36) U/L ALT 141 H (4-34) U/L Alkaline Phosphatase 176 H (38-126) U/L Total Protein 5.7 L (6.3-8.2) g/dL Albumin 2.1 L (3.5-5.0) g/dL Urine Appearance (Clear) Urine Protein (Negative) Urine Blood (Negative) Ur Leukocyte Esterase (Negative) Urine RBC (0-5) /hpf Urine Bacteria (None) /hpf Urine Mucus (None) /hpf Urine Yeast (Budding) (None) /hpf 06/15/20 Range/Units 12:02 WBC (3.8-10.6) k/uL RBC (3.80-5.40) m/uL Hgb (11.4-16.0) gm/dL Hct (34.0-46.0) % MCHC (31.0-37.0) g/dL RDW (11.5-15.5) % Plt Count (150-450) k/uL Sodium (137-145) mmol/L Potassium (3.5-5.1) mmol/L Carbon Dioxide (22-30) mmol/L BUN (7-17) mg/dL Creatinine (0.52-1.04) mg/dL Glucose (74-99) mg/dL POC Glucose (mg/dL) 108 H (75-99) mg/dL Plasma Lactic Acid Levi (0.7-2.0) mmol/L Calcium (8.4-10.2) mg/dL Total Bilirubin (0.2-1.3) mg/dL AST (14-36) U/L ALT (4-34) U/L Alkaline Phosphatase (38-126) U/L Total Protein (6.3-8.2) g/dL Albumin (3.5-5.0) g/dL Urine Appearance (Clear) Urine Protein (Negative) Urine Blood (Negative) Ur Leukocyte Esterase (Negative) Urine RBC (0-5) /hpf Urine Bacteria (None) /hpf Urine Mucus (None) /hpf Urine Yeast (Budding) (None) /hpf Microbiology - Last 24 Hours (Table) 06/14/20 02:30 Blood Culture - Preliminary Blood No Growth after 24 hours 06/14/20 17:16 Gram Stain - Preliminary Leg - Left Wound Culture - Preliminary 06/14/20 17:16 Anaerobic Culture - Preliminary Leg - Left Assessment and Plan Plan: Severe sepsis or septic shock:she was allied as with skin necrosis patient had a CT of both lower extremities which did not show any abscess and there is no mention of necrotizing fasciitis either. Patient the will becontinued on daptomycin and Zosyn. Infectious disease and vascular surgery evaluated the patient. patient can use to be on IV fluids -Shock liver liver enzymes will be monitored and the elevated liver enzymes secondary to sepsis -Acute renal failure possibly acute tubular necrosis from severe sepsis -Severe hyperkalemia secondary to metabolic acidosis -Hyponatremia: Hypervolemic hyponatremia. -Severe metabolic acidosis: Patient has both the anion gap and non-anion gap metabolic acidosis anion gap metabolic acidosis secondary to lactic acidosis and uremia -Hypoglycemia -Leukocytosis: plan: After discussion with the family members family decided on comfort care and hospice, hospice was consulted. As per the request of the patient to IV fluids and the antibiotics will be continued
--- NOTE | 2020-06-15 15:02 | CONS ---
CONSULTATION REASON FOR CONSULT: Renal failure. HISTORY OF PRESENT ILLNESS: Patient is a 75-year-old female who was admitted to the hospital yesterday with a history of increased weakness and mental status changes. Apparently patient was found slumped to the ground and EMS was called. History is obtained from chart review, Patient was noted to have significant wound cellulitis and necrosis of the skin and gangrene on bilateral lower extremities. Apparently this has been going on for about 2 months prior. The patient was found to have lactic acidosis with lactic acid of 8.4. Blood pressure has been around 110-112 mmHg systolic. The patient has received IV fluid boluses. She is currently not on any IV fluids. She has not had much urine output. Indwelling Fischer catheter is present. A 24 hour urine output noted at 475 mL. The Fischer catheter was placed this morning. Serum creatinine was 3.3 on admission, today it is up to 3.58. Prior creatinine in 2017 was 0.8. Potassium was 7.0 on initial admission, currently at 6.6 and CO2 was less than 5, now it is at 15. Lactic acid is down to 2.1. PAST MEDICAL HISTORY: Significant for hypertension, gastroesophageal reflux disease, peripheral vascular disease, osteoarthritis. PAST SURGICAL HISTORY: Left leg bypass with stent placement, left hip arthroplasty, right foot surgery with hardware, details not known. SOCIAL HISTORY: Negative for smoking, drug abuse or alcohol abuse. MEDICATIONS: Medications prior to admission included iron, Norvasc, Lasix, vitamin C and E. ALLERGIES: Include ADHESIVE which causes skin breakdown. REVIEW OF SYSTEMS: Negative for fever, chills, diarrhea, nausea, vomiting. PHYSICAL EXAMINATION: Patient is currently lying in bed. She is not able to communicate much. She appears lethargic. She is awake. Blood pressure is 119/52, heart rate 89 per minute, patient is afebrile. Examination of the heart S1, S2. Examination of the lungs, bilateral breath sounds are heard. Abdomen is soft, nontender. Examination of lower extremities shows bilateral extremities to be wrapped. Drainage is noted and there is necrosis of the skin and patient has been seen by vascular surgery. GLACING MACHINE TENDER examination: Patient has been moving her extremities although she is not able to communicate much. LABS: From this morning show sodium 128, potassium 6.6, chloride 103, CO2 is 15, BUN 56, serum creatinine 3.58. ASSESSMENT: 1. Acute kidney injury, acute tubular necrosis associated with underlying infection and hypotension, currently oliguric. The patient has an indwelling Fischer catheter. We will obtain an ultrasound of the kidneys as well. UA showed 1+ protein, trace blood, and WBCs of 5. I will maintain patient on IV fluids. 2. Hyperkalemia associated acute kidney injury and tissue breakdown from the gangrene and necrosis of the skin, bilateral lower extremities. Treat with insulin and D50, correct acidosis which will help improvement in the hyperkalemia as well. 3. Severe metabolic acidosis associated with lactic acidosis, sepsis, hypotension, currently improving. Maintain patient on bicarb drip. 4. Hyponatremia secondary to renal failure, mostly hypovolemic. PLAN: Start bicarb drip, given amp of bicarb IV push. Treat hyperkalemia with insulin and D50. If patient remains with poor urine output and persistent hyperkalemia, she will need dialysis. Continue with the antibiotics. Thank you for this consultation. Will continue to follow the patient with you during her hospitalization. MMODL / IJN: [id number] /
--- NOTE | 2020-06-15 15:40 | P.CNPUL ---
History of Present Illness Consult date: 06/15/20 Requesting physician: Per Bowles Reason for consult: other (Severe lower extremity cellulitis and sepsis) Chief complaint: Lower extremities swelling and drainage History of present illness: This is a 75-year-old female with history of chronic cellulitis of lower extremities. Chronic venous stasis ulcers. Normally sees the infectious disease specialist for her cellulitis, and normally gets her medical care at [facility]. Patient was brought in yesterday to [facility] complaining of significant worsening of her cellulitis in both lower extremities, she was also complaining of weakness, severe bilateral leg pains and burning sensation in the skin of lower extremities. She was also noted to have worsening ulceration and weeping of lower extremities. Upon arrival to the ER, patient was hypothermic, hypotensive, and noted to have very low bicarb, acute kidney injury, and elevated lactic acid. Patient was felt to be septic and she received fluid boluses. Placed empirically on antibiotics in the form of vancomycin and Zosyn, and I was asked to see her on consultation. Patient was seen by infectious disease, vascular surgery, and CT of the lower extremities showed mostly severe cellulitis. Follow-up labs today continues to show leukocytosis with WBC count of 24.1 hemoglobin is 9.8 sodium remains low at 128 potassium is 6.6. Bicarb is 15 BUN is 56 creatinine 3.58. Patient had a repeat lactic acid and it is 2.1 compared to 3.7 yesterday. I was notified about this patient to see just in case if her condition gets any worse and she would require transfer to the intensive care unit. I saw the patient yesterday, and I felt that the patient should be seen by multiple consultants including vascular surgery, infectious disease, and nephrology. Apparently the patient's CODE STATUS has been DO NOT RESUSCITATE all along, and the patient has been seeing the infectious disease specialist for quite some time for her present problem/cellulitis of lower extremities. Patient is known to have history of alcohol abuse, and upon presentation to the ER and I'll call level was noted to be consistent with acute alcohol intoxication patient was also noted to have ascites which is basically chronic related to underlying liver disease. Review of Systems CONSTITUTIONAL: No weight loss, no fever, no chills. HEENT: Negative CARDIOVASCULAR: Negative PULMONARY: Denies shortness of breath cough or wheezing denies any chest pain. GASTROINTESTINAL: Increased abdominal girth, no nausea no vomiting no abdominal pain. NEUROLOGICAL: Negative HEMATOLOGICAL: Negative GENITOURINARY: Negative Skin:: Chronic venous stasis ulcers and chronic cellulitis of lower extremities. Referred to HPI. ENDOCRINE: Negative Past Medical History Past Medical History: GERD/Reflux, Hypertension, Vascular Disorder Additional Past Medical History / Comment(s): hx bleeding ulcer. wound left foot. lt leg swelling since bypass. loud ringing in ears History of Any Multi-Drug Resistant Organisms: None Reported Past Surgical History: Joint Replacement Additional Past Surgical History / Comment(s): lt leg bypass x3 with stent in groin, lt hip replacement, rt foot with hardware Past Anesthesia/Blood Transfusion Reactions: Previous Problems w/ Anesthesia Additional Past Anesthesia/Blood Transfusion Reaction / Comment(s): after foot surgery developed loud ringing in ears which continues Past Psychological History: No Psychological Hx Reported Past Alcohol Use History: Daily Past Drug Use History: None Reported - Past Family History Mother Family Medical History: Unable to Obtain Medications and Allergies Home Medications Medication Instructions Recorded Confirmed Type Ferrous Sulfate [Feosol] 325 mg PO DAILY 07/19/19 06/14/20 History amLODIPine [Norvasc] 5 mg PO DAILY 07/19/19 06/14/20 History Furosemide [Lasix] 20 mg PO DAILY 06/14/20 06/14/20 History Vit C/E/Zn/Coppr/Lutein/Zeaxan 2 cap PO DAILY 06/14/20 06/14/20 History [Preservision Areds 2 Softgel] Allergies Allergy/AdvReac Type Severity Reaction Status Date / Time adhesive Allergy skin Verified 06/14/20 09:20 breaks down Physical Exam Vitals: Vital Signs Temp Pulse Resp BP Pulse Ox 06/15/20 11:03 97.6 F 89 18 119/52 96 06/15/20 08:34 98.0 F 89 20 101/49 94 L 06/15/20 04:00 81 17 110/57 96 06/15/20 00:00 97.6 F 81 17 104/59 98 06/14/20 20:00 97.5 F L 78 18 106/59 97 Intake and Output 06/15/20 06/15/20 06/15/20 06:59 14:59 22:59 Intake Total 975 400 Output Total 200 50 Balance 775 350 Intake: Intake, IV Titration 875 70 Amount Dextrose 5% in Water 1, 70 000 ml @ 70 mls/hr IV . [id number] LEWIS with Sodium Bicarb (1 Meq/ml) 150 ml Rx#:[id number] Sodium Chloride 0.9% 1, 875 000 ml @ 125 mls/hr IV . Q8H LEWIS Rx#:[id number] Oral 100 330 Output: Urine 200 50 Other: Voiding Method Indwelling Catheter Indwelling Catheter Weight 63.5 kg GENERAL :revealed 75-year-old female, in no distress, surprisingly the patient is not in any distress in spite of her very low bicarb level as noted on her electrolytes. Head: Atraumatic, normocephalic. EENT: Shows Pallor , no scleral icterus. Oral mucous membrane is dry. No pharyngeal erythema or thrush NECK: no neck masses no JVD no stridor. LUNGS: Unlabored breathing. Decreased breath sound at the base. No wheeze or crackle. HEART: S1, S2, regular rate and rhythm. No loud murmur ABDOMEN: Soft, no tenderness , guarding or rigidity, no organomegaly, suspect ongoing ascites and abdominal wall edema. EXTREMITIES: significant swelling, erythema, blistering and ulcerations as well as gangrenous changes noted in the skin of both lower extremities with both lower extremities weeping and serous drainage noted. KIN: No rash, no masses palpable. NEUROLOGICAL: alert oriented 3, no gross focal deficits. Psychiatric: Normal mood affect and normal mental status examination Results - Laboratory Findings CBC and BMP: 06/15/20 08:14 06/15/20 08:14 Abnormal lab findings: Abnormal Labs 06/14/20 06/14/20 06/14/20 02:30 02:30 02:30 WBC 23.0 H RBC 3.42 L Hgb 9.3 L Hct MCV 101.3 H MCHC 26.8 L RDW 18.4 H Plt Count 125 L Neutrophils # (Manual) 20.00 H Lymphocytes # (Manual) 0.69 L Monocytes # (Manual) 2.07 H Metamyelocytes # (Man) 0.23 H Sodium 125 L Potassium 7.0 H* Carbon Dioxide <5 L* BUN 50 H Creatinine 3.34 H Glucose 23 L* POC Glucose (mg/dL) Plasma Lactic Acid Levi 10.1 H* Calcium Magnesium 2.4 H Total Bilirubin 4.9 H AST 272 H ALT 82 H Alkaline Phosphatase 194 H Total Protein 6.1 L Albumin 2.4 L Urine Appearance Urine Protein Urine Blood Ur Leukocyte Esterase Urine RBC Urine Bacteria Urine Mucus Urine Yeast (Budding) 06/14/20 06/14/20 06/14/20 03:18 05:32 05:47 WBC RBC Hgb Hct MCV MCHC RDW Plt Count Neutrophils # (Manual) Lymphocytes # (Manual) Monocytes # (Manual) Metamyelocytes # (Man) Sodium 128 L Potassium 6.4 H* Carbon Dioxide <5 L* BUN 49 H Creatinine 3.21 H Glucose 47 L* POC Glucose (mg/dL) 33 L Plasma Lactic Acid Levi 8.5 H* Calcium Magnesium Total Bilirubin 4.6 H AST 337 H ALT 86 H Alkaline Phosphatase 172 H Total Protein 5.7 L Albumin 2.1 L Urine Appearance Urine Protein Urine Blood Ur Leukocyte Esterase Urine RBC Urine Bacteria Urine Mucus Urine Yeast (Budding) 06/14/20 06/14/20 06/14/20 07:17 08:15 09:15 WBC RBC Hgb Hct MCV MCHC RDW Plt Count Neutrophils # (Manual) Lymphocytes # (Manual) Monocytes # (Manual) Metamyelocytes # (Man) Sodium Potassium Carbon Dioxide BUN Creatinine Glucose POC Glucose (mg/dL) 53 L 108 H Plasma Lactic Acid Levi 8.6 H* Calcium Magnesium Total Bilirubin AST ALT Alkaline Phosphatase Total Protein Albumin Urine Appearance Urine Protein Urine Blood Ur Leukocyte Esterase Urine RBC Urine Bacteria Urine Mucus Urine Yeast (Budding) 06/14/20 06/14/20 06/14/20 13:51 17:13 17:30 WBC RBC Hgb Hct MCV MCHC RDW Plt Count Neutrophils # (Manual) Lymphocytes # (Manual) Monocytes # (Manual) Metamyelocytes # (Man) Sodium Potassium Carbon Dioxide BUN Creatinine Glucose POC Glucose (mg/dL) 74 L Plasma Lactic Acid Levi 8.4 H* 5.7 H* Calcium Magnesium Total Bilirubin AST ALT Alkaline Phosphatase Total Protein Albumin Urine Appearance Urine Protein Urine Blood Ur Leukocyte Esterase Urine RBC Urine Bacteria Urine Mucus Urine Yeast (Budding) 06/14/20 06/14/20 06/15/20 20:28 23:16 00:37 WBC RBC Hgb Hct MCV MCHC RDW Plt Count Neutrophils # (Manual) Lymphocytes # (Manual) Monocytes # (Manual) Metamyelocytes # (Man) Sodium Potassium Carbon Dioxide BUN Creatinine Glucose POC Glucose (mg/dL) 104 H Plasma Lactic Acid Levi 3.7 H* 2.9 H* Calcium Magnesium Total Bilirubin AST ALT Alkaline Phosphatase Total Protein Albumin Urine Appearance Urine Protein Urine Blood Ur Leukocyte Esterase Urine RBC Urine Bacteria Urine Mucus Urine Yeast (Budding) 06/15/20 06/15/20 06/15/20 01:16 03:18 05:00 WBC RBC Hgb Hct MCV MCHC RDW Plt Count Neutrophils # (Manual) Lymphocytes # (Manual) Monocytes # (Manual) Metamyelocytes # (Man) Sodium Potassium Carbon Dioxide BUN Creatinine Glucose POC Glucose (mg/dL) 111 H 104 H Plasma Lactic Acid Levi Calcium Magnesium Total Bilirubin AST ALT Alkaline Phosphatase Total Protein Albumin Urine Appearance Cloudy H Urine Protein 1+ H Urine Blood Trace H Ur Leukocyte Esterase Moderate H Urine RBC 38 H Urine Bacteria Many H Urine Mucus Rare H Urine Yeast (Budding) Moderate H 06/15/20 06/15/20 06/15/20 05:23 08:14 08:14 WBC 24.1 H RBC 3.39 L Hgb 9.8 L Hct 32.4 L MCV MCHC 30.1 L RDW 19.0 H Plt Count 86 L Neutrophils # (Manual) Lymphocytes # (Manual) Monocytes # (Manual) Metamyelocytes # (Man) Sodium 128 L Potassium 6.6 H* Carbon Dioxide 15 L BUN 56 H Creatinine 3.58 H Glucose 71 L POC Glucose (mg/dL) Plasma Lactic Acid Levi 2.1 H* Calcium 8.3 L Magnesium Total Bilirubin 5.0 H AST 531 H ALT 141 H Alkaline Phosphatase 176 H Total Protein 5.7 L Albumin 2.1 L Urine Appearance Urine Protein Urine Blood Ur Leukocyte Esterase Urine RBC Urine Bacteria Urine Mucus Urine Yeast (Budding) 06/15/20 12:02 WBC RBC Hgb Hct MCV MCHC RDW Plt Count Neutrophils # (Manual) Lymphocytes # (Manual) Monocytes # (Manual) Metamyelocytes # (Man) Sodium Potassium Carbon Dioxide BUN Creatinine Glucose POC Glucose (mg/dL) 108 H Plasma Lactic Acid Levi Calcium Magnesium Total Bilirubin AST ALT Alkaline Phosphatase Total Protein Albumin Urine Appearance Urine Protein Urine Blood Ur Leukocyte Esterase Urine RBC Urine Bacteria Urine Mucus Urine Yeast (Budding) - Diagnostic Findings Additional studies: CT of lower extremities was noted. Abdominal ultrasound showed no hydronephrosis, however it did show evidence of ascites. Chest x-ray showed right infrahilar opacity, could be atelectasis, doubt pneu monia. Assessment and Plan Assessment: Impression: Severe cellulitis, questionable necrotizing fasciitis, not clearly seen on CT of lower extremities. Elevated liver enzymes and ascites, suspect underlying alcohol related liver disease, doubt shock liver as the patient was not hypotensive on presentation. Acute kidney injury secondary to sepsis/severe sepsis from cellulitis of both lower extremities. This is likely a picture of acute tubular necrosis. Acute metabolic acidosis and hyperkalemia secondary to sepsis. Leukocytosis secondary to cellulitis and sepsis. Ascites secondary to possible alcohol related liver disease. Hyponatremia secondary to renal failure and possibly hypovolemia Hyperkalemia associated with acute kidney injury and possible tissue breakdown from necrotic changes of the skin as well as gangrenous changes noted in both lower extremities. That is being addressed by nephrology. Recommendation: Continue broad-spectrum antibiotics. Vascular surgery consultation Briefly discussed with the patient that she may eventually require amputation and this will be decided upon by surgery on the case, however the patient said she will never undergo amputation at any circumstances. Suggest IV fluids, as per nephrology to correct her hypovolemia and hyperkalemia. And hyponatremia. Patient may have to be considered for paracentesis considering her ascites, but clinically does not seem to be the main issue at this point. Overall prognosis is extremely poor and guarded. We'll continue to follow. Time with Patient: Greater than 30
[2020-06-15] MEDS: HYDROcodone/APAP 5-325MG 1 EACH TAB PO PRN (16:16)
[2020-06-15 17:18] LABS: Glucose,Whole Blood 112 mg/dL (75-99)
[2020-06-15 20:33] LABS: Glucose,Whole Blood 89 mg/dL (75-99)
--- NOTE | 2020-06-15 23:28 | PN ---
PROGRESS NOTE DATE OF SERVICE: 06/15/2020 REASON FOR FOLLOWUP: Bilateral lower extremity cellulitis and possible pneumonia. INTERVAL HISTORY: The patient is currently afebrile. The patient is found to be sleepy, lethargic though and was unable to provide any history. No vomiting, no diarrhea or reported by the nursing staff. PHYSICAL EXAMINATION: Blood pressure 119/52 with a pulse of 89, temperature is 97.6. She is 96% on room air. General description is an elderly female lying in bed in no distress. RESPIRATORY SYSTEM: Unlabored breathing, clear to auscultation anteriorly. HEART: S1, S2. Regular rate and rhythm. ABDOMEN: Soft, no tenderness. Right lower extremity did have multiple ulceration, some necrosis and swelling and redness. No drainage. No foul smelling. LABS: Hemoglobin is 9.8, white count 24.1, creatinine 3.58. Blood culture has been negative so far. Local culture currently pending. DIAGNOSTIC IMPRESSION AND PLAN: Patient admitted to the hospital with sepsis, multifactorial, related with bilateral lower extremity cellulitis, right greater than left. The patient is currently broadly covered with Zosyn. Daptomycin was added this morning after discussion with the vascular surgeon. Care has been discussed in detail with who is planning for possible hospice which may be appropriate for her. Continue with supportive care. MMODL / IJN: [id number] /
[2020-06-16] MEDS: HYDROcodone/APAP 5-325MG 1 EACH TAB PO PRN ×2 (03:28→11:29)
[2020-06-16] MEDS: SODIUM CHLORIDE 0.9% 1,000 ML IV SCH ×2 (05:10→17:11)
[2020-06-16] MEDS: PIPERACILLIN-TAZOBACTAM 3.375 GM in SODIUM CHLORIDE 0.9% 100 ML IVPB SCH ×2 (05:50→17:10)
[2020-06-16 05:58] LABS: Glucose,Whole Blood 88 mg/dL (75-99)
[2020-06-16] MEDS: FAMOTIDINE 20 MG/2 ML VIAL IV SCH (08:42)
[2020-06-16 11:55] LABS: Glucose,Whole Blood 107 mg/dL (75-99)
--- NOTE | 2020-06-16 12:30 | PN ---
PROGRESS NOTE Patient is seen for followup for acute kidney injury, severe metabolic acidosis. Family is considering hospice care, yesterday although final decision has not been made yet. Patient is in the process of being transferred. . PHYSICAL EXAMINATION: On examination, she is currently comfortable, looks better than yesterday, more awake. Blood pressure is 88/66, heart rate 101 per minute she is afebrile examination of the heart S1, S2. Examination of the lungs, decreased breath sounds at bases. No crackles or wheezing is heard. Abdomen is soft, nontender. Examination of lower extremities shows bilateral extremities to be wrapped. No significant drainage is noted from bilateral extremities. Labs are not available from today. ASSESSMENT: 1. Acute kidney injury, oliguric ATN associated with hypotension, sepsis. 2. Severe metabolic acidosis from lactic acidosis and sepsis. 3. Bilateral lower extremity cellulitis with necroses and gangrene as well. 4. Hyponatremia associated with renal failure and it is hypovolemic. No repeat labs today. PLAN: Continue with antibiotics. Continue IV fluids. Agree with plans for hospice care. MMODL / IJN: [id number] /
--- NOTE | 2020-06-16 12:56 | P.PN ---
Progress Note - Text 75-year-old white female, patient came with history of bilateral lower extremity marked cellulitis with skin necrosis and muscle neck muscle necrosis noted on the medial aspect of the both legs. Patient had a computed tomography scan which showed a anasarca and the edema of the due to silver cellulitis noted patient has a marked swelling and tenderness and pregangrenous changes noted on the dorsal suspect of the right and left foot. Culture came back a enterococcus and gram-negative bacilli patient is on IV antibiotic. Discuss all the option with the option is extensive debridement and possible major amputation at this point does not want any major surgical intervention want to keep the patient on hospice care
--- NOTE | 2020-06-16 16:40 | P.PN ---
Subjective 75-year-old womanbrought by ambulance to have evaluation for generalized weakness. The patient states had phoned EMS tonightafter she had s lumped to the ground and not been able to get up due to generalized weakness. The patient does note that over the past few days to a little over a week or so,she has been having worsening of bilateral leg pain, which she describes as burning and aching. The pain is worse if she touches her legs or with movements. She has noted that there has been weeping from ulcerations going back longer than that. Patient has not noted fever or chills. No chest pain or dyspnea. No cough. She is found to be severely septic with bilateral extensive cellulitis and with gangrene patient has is discoloration of both legs going on for about 2 months. Had gangrenous changes extend up to both knees. Patient has highly elevated liver blood cell count of 22,000 patient was started on vancomycin and Zosyn. Patient has significant other provided abnormalities including highly elevated potassium of 6.4 low sodium. Severe metabolic acidosis. Highly elevated lactic acid of around 8.4 patient has borderline blood pressure received multiple boluses of IV fluids patient will be started on 125 mL of normal saline. Patient has elevated liver enzymes secondary to shock liver. Chest x-ray mild perihilar infiltrate. Patient lives with her at home. 06/15/2020 patient was evaluated by vascular surgery and infectious disease patient was started on daptomycin, due to nephrotoxicity of vancomycin patient to histamine Zosyn. Patient has a skin necrosis significant. Vascular surgery does not be lieve debridement is a possibility the other possibility being below knee or bony amputations which are patient doesn't want. Without surgical intervention it's hard to address patient's sepsis because of which had a lengthy discussion along with vascular surgeon with as well as the patient patient and later decided she wanted to be hospice. But she wanted to be continued on antibiotics which will be continued patient is presently on D5 with bicarbonate which will also be continued. 06/16/2020 Discussed with her as well. Plan is to not to pursue hospice at this time continue with antibiotics. If needed patient will undergo superficial debridement. We will order labs for tomorrow no labs are available from today. Patient the will be continued on daptomycin and Zosyn. Patient does have urine output. Patient won't cultures are showing gram-negative bacilli and enterococcus. Constitutional: No fever Cardio vascular: denied any chest pain, palpitations Gastrointestinal denied any nausea vomiting Pulmonary: Denied any shortness of breath cough Neurologic denied any new focal deficits All inpatient medications were reviewed and appropriate changes in these medications as dictated in the interval history and assessment and plan. Objective - Vital Signs Vital signs: Vital Signs Temp 97.8 F 06/16/20 16:00 Pulse 97 06/16/20 16:00 Resp 18 06/16/20 16:00 BP 99/66 06/16/20 16:00 Pulse Ox 99 06/16/20 16:00 Intake & Output 06/15/20 06/16/20 06/16/20 18:59 06:59 18:59 Intake Total 400 950 240 Output Total 50 125 500 Balance 350 825 -260 Weight 63 kg Intake: Intake, IV Titration 70 950 Amount Dextrose 5% in Water 1, 70 000 ml @ 70 mls/hr IV . [id number] LEWIS with Sodium Bicarb (1 Meq/ml) 150 ml Rx#:[id number] Piperacillin-Tazobactam 3 100 .375 gm In Sodium Chloride 0.9% 100 ml @ 25 mls/hr IVPB Q12H LEWIS Rx# :[id number] Sodium Chloride 0.9% 1, 850 000 ml @ 125 mls/hr IV . Q8H LEWIS Rx#:[id number] Oral 330 240 Output: Urine 50 125 500 Other: Voiding Method Indwelling Catheter Indwelling Catheter Indwelling Catheter - Exam PHYSICAL EXAMINATION: GENERAL: The patient is alert and oriented x3, not in any acute distress. Well developed, well nourished. HEENT: Pupils are round and equally reacting to light. EOMI. No scleral icterus. No conjunctival pallor. Normocephalic, atraumatic. No pharyngeal erythema. No thyromegaly. CARDIOVASCULAR: S1 and S2 present. No murmurs, rubs, or gallops. PULMONARY: Chest is clear to auscultation, no wheezing or crackles. ABDOMEN: Soft, nontender, nondistended, normoactive bowel sounds. No palpable organomegaly. MUSCULOSKELETAL: No joint swelling or deformity. EXTREMITIES: No cyanosis, clubbing, or pedal edema. NEUROLOGICAL: Gross neurological examination did not reveal any focal deficits. SKIN: Patient has extensive cellulitis and skin necrosis of both legs extending up to both knees. - Labs CBC & Chem 7: 06/15/20 08:14 06/15/20 08:14 Labs: Abnormal Lab Results - Last 24 Hours (Table) 06/15/20 06/16/20 Range/Units 17:17 11:54 POC Glucose (mg/dL) 112 H 107 H (75-99) mg/dL Microbiology - Last 24 Hours (Table) 06/15/20 09:30 Gram Stain - Preliminary Leg - Right Wound Culture - Preliminary Group D Enterococcus 06/14/20 02:30 Blood Culture - Preliminary Blood No Growth after 48 hours 06/14/20 17:16 Gram Stain - Preliminary Leg - Left Wound Culture - Preliminary Group D Enterococcus Gram Neg Bacilli 06/15/20 09:30 Anaerobic Culture - Preliminary Leg - Right Assessment and Plan Plan: Severe sepsis or septic shock:she was allied as with skin necrosis patient had a CT of both lower extremities which did not show any abscess and there is no mention of necrotizing fasciitis either. Patient will becontinued on dapto mycin and Zosyn. Infectious disease and vascular surgery evaluated the patient. Patient will be continued on normal saline. Wound cultures are showing enterococcus and gram negatives bacilli. Patient doesn't want to pursue amputation. If needed patient will undergo debridement superficially. -Shock liver liver enzymes will be monitored and the elevated liver enzymes secondary to sepsis -Acute renal failure possibly acute tubular necrosis from severe sepsis -Severe hyperkalemia secondary to metabolic acidosis , improving continue with IV fluids -Hyponatremia: Hypervolemic hyponatremia. Expected to improve with IV fluids -Severe metabolic acidosis: Patient has both the anion gap and non-anion gap metabolic acidosis anion gap metabolic acidosis secondary to lactic acidosis and uremia -Hypoglycemia -Leukocytosis: DVT prophylaxis with subcutaneous heparin
[2020-06-16 17:00] LABS: Glucose,Whole Blood 84 mg/dL (75-99)
[2020-06-16 20:41] LABS: Glucose,Whole Blood 87 mg/dL (75-99)
--- NOTE | 2020-06-16 21:01 | PN ---
PROGRESS NOTE This is a 75-year-old female. Patient has history of marked cellulitis involving both lower extremities and skin necrosis and superficial ulcer on the medial lateral aspect of the lower leg with a lot of drainage area. Patient had a culture which shows enterococcus and Gram-negative bacilli. Patient is on IV antibiotics under Infectious Disease. The patient also has acute kidney injury and ascites to the abdomen. CT scan showed anasarca of both lower extremities with edema bilaterally. The patient is more alert today than yesterday. Also she has been noted to have marked swelling of both upper arms. Her CODE STATUS has been DO NOT RESUSCITATE. The family is still holding hospice care. In the meantime, continue with IV antibiotic and local wound care. Prognosis is guarded. Will follow with you. MMODL / IJN: [id number] /
[2020-06-16] MEDS: HEPARIN SODIUM,PORCINE 5,000 UNIT/ML 1 ML VIAL SQ SCH (21:30)
--- NOTE | 2020-06-16 23:04 | PN ---
PROGRESS NOTE PULMONARY/CRITICAL CARE PROGRESS NOTE: DATE OF SERVICE: 06/16/2020 This is a 75-year-old female seen by our team in consultation yesterday. She has a history of severe cellulitis involving the lower extremities and possible necrotizing fasciitis of the thigh and lower abdominal areas as well as the genital areas. The patient was resting comfortably today when we saw her. Currently, she has been seen by Infectious Diseases and they are managing her antibiotics. She had no major complaints today. Doing better today than she was apparently over the weekend. PHYSICAL EXAMINATION: VITAL SIGNS: Currently temperature is 97.8, heart rate 97, respiratory rate 18, blood pressure 99/66 with mean of 77. Room-air saturation 99%. GENERAL APPEARANCE: Appears in no acute distress. She is NO CODE. HEENT: Examination is grossly unremarkable. No supplemental oxygen. NECK: Supple. Full range of motion. CARDIOVASCULAR: Examination reveals regular rhythm rate. Heart rate about 88 beats per minute. S1, S2 normal. No murmur. LUNGS: Lungs reveal mostly clear breath sounds. She does not take deep breaths. A few scattered rhonchi. ABDOMEN: Soft. Bowel sounds are heard. EXTREMITIES: Extremities reveal significant cellulitis of both lower extremities. Both lower extremities are weeping. Both lower extremities are wrapped. She has significant thigh edema and edema of the lower abdominal and pelvic area as well. SKIN: As above. NEUROLOGIC: Neurologic examination is brief but nonfocal. She is a bit lethargic, but she does appropriately respond. LABS: Reviewed. No labs as yet from today. Labs from yesterday shows a white count 24.1, hemoglobin 9.8, hematocrit 32.4, and platelet count of 86,000. Sodium 128, potassium 6.6, chloride 103 CO2 15, anion gap of 10. BUN and creatinine were 56 and 3.58. That compares to a BUN and creatinine of 49 and 3.21 on the day before. The rest of the labs are reviewed. Lactic acid is down to 2.1 from 3.7. Urine is cloudy. Nitrite was negative, leukocyte esterase was moderate positive. WBCs were 5 and there were many bacteria. Current microbiology is showing wound cultures positive for group D enterococcus and Gram-negative bacilli from the right leg and left flank. CURRENT MEDICATIONS: Current medications include Zosyn and daptomycin. In addition, she is on Tylenol, Pepcid, subcutaneous heparin, Caraway and saline IV. ASSESSMENT: 1. Severe cellulitis of the bilateral lower extremities with possible/questionable necrotizing fasciitis of the lower abdominal, pelvic and genital areas. 2. Possible underlying alcohol-related liver disease. 3. Acute kidney injury secondary to sepsis. 4. Acute metabolic acidosis. 5. Leukocytosis secondary to cellulitis and sepsis. 6. 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 7. Hyponatremia secondary to renal failure. 8. Hyperkalemia secondary to acute kidney injury and acute tubular necrosis. 9. Severe cellulitis of the lower extremities. PLAN: The patient will continue with broad-spectrum antibiotics in the form of vancomycin and daptomycin. ID has seen the patient. Will continue to follow. Overall prognosis is poor. The patient is a NO CODE patient. No additional recommendations are made. Will continue to follow. MMODL / IJN: [id number] / MTDD
[2020-06-17 06:13] LABS: Glucose,Whole Blood 76 mg/dL (75-99)
[2020-06-17] MEDS: PIPERACILLIN-TAZOBACTAM 3.375 GM in SODIUM CHLORIDE 0.9% 100 ML IVPB SCH ×2 (06:56→18:00)
[2020-06-17] MEDS: SODIUM CHLORIDE 0.9% 1,000 ML IV SCH ×4 (07:26→22:30)
[2020-06-17] MEDS ORDERED: FAMOTIDINE 20 MG/2 ML VIAL IV SCH (09:00)
[2020-06-17] MEDS: HEPARIN SODIUM,PORCINE 5,000 UNIT/ML 1 ML VIAL SQ SCH ×2 (09:51→20:33)
[2020-06-17] MEDS: HYDROcodone/APAP 5-325MG 1 EACH TAB PO PRN ×2 (10:12→20:55)
[2020-06-17 10:34] LABS: Anisocytosis Slight; HCT 32.5 % (34.0-46.0); HGB 9.9 gm/dL (11.4-16.0); Hypochromasia Marked; MCH 28.2 pg (25.0-35.0); MCHC 30.5 g/dL (31.0-37.0); MCV 92.3 fL (80.0-100.0); Mean Platelet Volume 10.2; RBC 3.52 m/uL (3.80-5.40); RDW 19.1 % (11.5-15.5); WBC 20.7 k/uL (3.8-10.6)
[2020-06-17 10:35] LABS: Platelet Count 60 k/uL (150-450)
[2020-06-17 10:39] LABS: Albumin 2.2 g/dL (3.5-5.0); Calcium 7.8 mg/dL (8.4-10.2); Potassium 5.3 mmol/L (3.5-5.1); Total Bilirubin 5.9 mg/dL (0.2-1.3)
[2020-06-17 11:57] LABS: Glucose,Whole Blood 117 mg/dL (75-99)
--- NOTE | 2020-06-17 14:15 | P.PN ---
Subjective 75-year-old womanbrought by ambulance to have evaluation for generalized weakness. The patient states had phoned EMS tonightafter she had s lumped to the ground and not been able to get up due to generalized weakness. The patient does note that over the past few days to a little over a week or so,she has been having worsening of bilateral leg pain, which she describes as burning and aching. The pain is worse if she touches her legs or with movements. She has noted that there has been weeping from ulcerations going back longer than that. Patient has not noted fever or chills. No chest pain or dyspnea. No cough. She is found to be severely septic with bilateral extensive cellulitis and with gangrene patient has is discoloration of both legs going on for about 2 months. Had gangrenous changes extend up to both knees. Patient has highly elevated liver blood cell count of 22,000 patient was started on vancomycin and Zosyn. Patient has significant other provided abnormalities including highly elevated potassium of 6.4 low sodium. Severe metabolic acidosis. Highly elevated lactic acid of around 8.4 patient has borderline blood pressure received multiple boluses of IV fluids patient will be started on 125 mL of normal saline. Patient has elevated liver enzymes secondary to shock liver. Chest x-ray mild perihilar infiltrate. Patient lives with her at home. 06/15/2020 patient was evaluated by vascular surgery and infectious disease patient was started on daptomycin, due to nephrotoxicity of vancomycin patient to histamine Zosyn. Patient has a skin necrosis significant. Vascular surgery does not be lieve debridement is a possibility the other possibility being below knee or bony amputations which are patient doesn't want. Without surgical intervention it's hard to address patient's sepsis because of which had a lengthy discussion along with vascular surgeon with as well as the patient patient and later decided she wanted to be hospice. But she wanted to be continued on antibiotics which will be continued patient is presently on D5 with bicarbonate which will also be continued. 06/16/2020 Discussed with her as well. Plan is to not to pursue hospice at this time continue with antibiotics. If needed patient will undergo superficial debridement. We will order labs for tomorrow no labs are available from today. Patient the will be continued on daptomycin and Zosyn. Patient does have urine output. Patient won't cultures are showing gram-negative bacilli and enterococcus. 06/17/2020 Patient has enterococcus faecalis and Enterobacter cloaca, patient remains on daptomycin and Zosyn which will be continued. I'll leave the decision of antibiotics and infectious disease. Patient urine output is marginal and creatinine continued to go up. Constitutional: No fever Cardio vascular: denied any chest pain, palpitations Gastrointestinal denied any nausea vomiting Pulmonary: Denied any shortness of breath cough Neurologic denied any new focal deficits All inpatient medications were reviewed and appropriate changes in these medications as dictated in the interval history and assessment and plan. Objective - Vital Signs Vital signs: Vital Signs Temp 96.9 F L 06/17/20 12:30 Pulse 84 06/17/20 12:30 Resp 18 06/17/20 12:30 BP 86/56 06/17/20 12:30 Pulse Ox 97 06/17/20 12:30 Intake & Output 06/16/20 06/17/20 06/17/20 18:59 06:59 18:59 Intake Total 480 1570 Output Total 800 420 Balance -320 -420 1570 Weight 63.6 kg Intake: Intake, IV Titration 1450 Amount DAPTOmycin 400 mg In 50 Sodium Chloride 0.9% 50 ml @ 100 mls/hr IVPB Q48H [facility] Rx#:[id number] Piperacillin-Tazobactam 3 200 .375 gm In Sodium Chloride 0.9% 100 ml @ 25 mls/hr IVPB Q12H [facility] Rx# :[id number] Sodium Chloride 0.9% 1, 1200 000 ml @ 100 mls/hr IV . Q10H [facility] Rx#:[id number] Oral 480 120 Output: Urine 800 420 Other: Voiding Method Indwelling Catheter Indwelling Catheter Indwelling Catheter # Voids 1 - Exam PHYSICAL EXAMINATION: GENERAL: The patient is alert and oriented x3, not in any acute distress. Well developed, well nourished. HEENT: Pupils are round and equally reacting to light. EOMI. No scleral icterus. No conjunctival pallor. Normocephalic, atraumatic. No pharyngeal erythema. No thyromegaly. CARDIOVASCULAR: S1 and S2 present. No murmurs, rubs, or gallops. PULMONARY: Chest is clear to auscultation, no wheezing or crackles. ABDOMEN: Soft, nontender, nondistended, normoactive bowel sounds. No palpable organomegaly. MUSCULOSKELETAL: No joint swelling or deformity. EXTREMITIES: No cyanosis, clubbing, or pedal edema. NEUROLOGICAL: Gross neurological examination did not reveal any focal deficits. SKIN: Patient has extensive cellulitis and skin necrosis of both legs extending up to both knees. - Labs CBC & Chem 7: 06/17/20 09:20 06/17/20 09:20 Labs: Abnormal Lab Results - Last 24 Hours (Table) 06/17/20 06/17/20 06/17/20 Range/Units : 09: 11:56 WBC 20.7 H (3.8-10.6) k/uL RBC 3.52 L (3.80-5.40) m/uL Hgb 9.9 L (11.4-16.0) gm/dL Hct 32.5 L (34.0-46.0) % MCHC 30.5 L (31.0-37.0) g/dL RDW 19.1 H (11.5-15.5) % Plt Count 60 L (150-450) k/uL Sodium 127 L (137-145) mmol/L Potassium 5.3 H (3.5-5.1) mmol/L Carbon Dioxide 13 L (22-30) mmol/L BUN 71 H (7-17) mg/dL Creatinine 4.21 H (0.52-1.04) mg/dL POC Glucose (mg/dL) 117 H (75-99) mg/dL Calcium 7.8 L (8.4-10.2) mg/dL Total Bilirubin 5.9 H (0.2-1.3) mg/dL AST 210 H (14-36) U/L ALT 100 H (4-34) U/L Alkaline Phosphatase 222 H (38-126) U/L Total Protein 6.0 L (6.3-8.2) g/dL Albumin 2.2 L (3.5-5.0) g/dL Microbiology - Last 24 Hours (Table) 06/15/20 09:30 Anaerobic Culture - Preliminary Leg - Right 06/15/20 09:30 Gram Stain - Final Leg - Right Wound Culture - Final Enterococcus faecalis 06/14/20 02:30 Blood Culture - Preliminary Blood No Growth after 72 hours 06/14/20 17:16 Gram Stain - Final Leg - Left Wound Culture - Final Enterococcus faecalis Enterobacter cloacae 06/14/20 17:16 Anaerobic Culture - Preliminary Leg - Left Assessment and Plan Plan: Severe sepsis or septic shock: Cellulitis with with skin necrosis patient had a CT of both lower extremities which did not show any abscess and there is no mention of necrotizing fasciitis either. Patient will becontinued on daptomycin and Zosyn. Patient has enterococcus and Enterobacter cloaca a on the wound cultures Infectious disease and vascular surgery evaluated the patient. Patient will be continued on normal saline. -Shock liver liver enzymes will be monitored and the elevated liver enzymes secondary to sepsis -Acute renal failure possibly acute tubular necrosis from severe sepsis , creatinine continued to get worse -Severe hyperkalemia secondary to metabolic acidosis , improving continue with IV fluids -Hyponatremia: Hypovolemic hyponatremia. Sodium remains at 127 -Severe metabolic acidosis: Patient has both the anion gap and non-anion gap metabolic acidosis anion gap metabolic acidosis secondary to lactic acidosis and uremia -Hypoglycemia -Leukocytosis: DVT prophylaxis with subcutaneous heparin
--- NOTE | 2020-06-17 16:04 | PN ---
PROGRESS NOTE PULMONARY/CRITICAL CARE PROGRESS NOTE DATE OF SERVICE: June 17, 2020. A 75-year-old female seen in consultation a couple days ago. She has a history of severe cellulitis involving the lower extremities as well as possible necrotizing fasciitis of the thigh and lower abdominal area. Currently, the patient is a bit confused. The patient has not been up out of bed. Her legs are wrapped. She has been seen by Infectious Diseases. They are managing her antibiotics. Clinically, from the respiratory standpoint, the patient is stable. She is not requiring any supplemental oxygen. PHYSICAL EXAMINATION: VITAL SIGNS: Current vital signs are reviewed temperature 96.9, heart rate 84, respiratory rate 18, blood pressure 85/56 with mean of 66, room air saturation 97%. Appears in no acute distress. HEENT: Examination is grossly unremarkable. NECK: Supple. Full range of motion. No adenopathy. Neck veins are flat. CARDIOVASCULAR: Examination reveals regular rhythm rate. Heart rate 84 beats per minute. It is regular. S1, S2 normal. There is no murmur. LUNGS: Reveal clear breath sounds. No wheezes, rhonchi, or crackles. Breath sounds equal bilaterally. ABDOMEN: Soft bowel sounds are not noted. EXTREMITIES: Extremities reveal weeping lower extremities. There is significant edema both in the upper and lower extremities. The lower extremities are wrapped. SKIN: Skin reveals multiple areas of ecchymoses. NEUROLOGIC: Examination is difficult to assess. She is somewhat lethargic and somnolent. She does respond. LABS: Reviewed. White count 20.7, hemoglobin 9.9, hematocrit 32.5, platelet count is 60,000. Sodium 127, potassium 5.3, chloride 103, CO2 of 13. Anion gap is 11. BUN and creatinine were 71 and 4.21. Bilirubin is 5.9, AST 210, ALT 100, alkaline phosphatase 222, albumin 2.2. Microbiology showing evidence of Enterococcus faecalis and Enterobacter cloacae from the wounds of both the left and right leg. No recent x-ray to report. Medications reviewed. Currently, she is on Zosyn and daptomycin. ASSESSMENT: 1. Severe cellulitis of the bilateral lower extremities with possible/questionable necrotizing fasciitis of the lower abdominal, pelvic and genital area. 2. Possible underlying alcohol-related liver disease. 3. Acute kidney injury secondary to sepsis. 4. Acute metabolic acidosis. 5. Leukocytosis secondary to cellulitis and sepsis. 6. 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 7. Hyponatremia secondary to renal failure. 8. Hyperkalemia secondary to acute kidney injury and acute tubular necrosis. 9. Severe cellulitis of the lower extremities. PLAN: The patient is currently receiving antibiotics per ID. She is on vancomycin and daptomycin. She has been seen by Infectious Disease. She is a no code. No additional recommendations are made. Current respiratory status is stable. MMODL / IJN: [id number] /
[2020-06-17 20:07] LABS: Glucose,Whole Blood 110 mg/dL (75-99)
--- NOTE | 2020-06-18 01:58 | PN ---
PROGRESS NOTE DATE OF SERVICE: 06/17/2020 REASON FOR FOLLOWUP: Bilateral lower extremity wound and cellulitis, right greater than left. INTERVAL HISTORY: The patient's family has refused hospice and wants aggressive medical therapy. The patient is slightly more awake and alert today; however, she says she needs to be left alone. for any chest pain, shortness of breath or cough. The patient denied no worsening pain to the leg and no diarrhea has been reported. PHYSICAL EXAMINATION: Blood pressure is 104/76, pulse of 90, temperature 96.9. She is 99% on room air. General description is an elderly female lying in bed in no distress. RESPIRATORY SYSTEM: Unlabored breathing with decreased breath sounds at the bases. No wheeze. HEART: S1, S2. Regular rate and rhythm. ABDOMEN: Soft. No tenderness. Legs are currently wrapped up, no obvious drainage on the dressing. LABS: Hemoglobin 9.9, white count 20.7, BUN of 71, creatinine 4.21. DIAGNOSTIC IMPRESSION AND PLAN: Patient has bilateral lower extremity wound and cellulitis. Culture positive for Enterococcus faecalis and Enterobacter cloacae. Patient is covered with Zosyn with no resistant gram positive daptomycin will be discontinued and will monitor her clinical course closely. Local care to continue per Surgery. MMODL / IJN: [id number] /
[2020-06-18] MEDS: SODIUM CHLORIDE 0.9% 1,000 ML IV SCH ×2 (05:37→16:41)
[2020-06-18] MEDS: PIPERACILLIN-TAZOBACTAM 3.375 GM in SODIUM CHLORIDE 0.9% 100 ML IVPB SCH ×2 (06:05→17:47)
[2020-06-18 06:22] LABS: Glucose,Whole Blood 95 mg/dL (75-99)
[2020-06-18] MEDS: FAMOTIDINE 20 MG TAB PO SCH (09:55)
--- NOTE | 2020-06-18 11:05 | P.PN ---
Subjective 75-year-old womanbrought by ambulance to have evaluation for generalized weakness. The patient states had phoned EMS tonightafter she had s lumped to the ground and not been able to get up due to generalized weakness. The patient does note that over the past few days to a little over a week or so,she has been having worsening of bilateral leg pain, which she describes as burning and aching. The pain is worse if she touches her legs or with movements. She has noted that there has been weeping from ulcerations going back longer than that. Patient has not noted fever or chills. No chest pain or dyspnea. No cough. She is found to be severely septic with bilateral extensive cellulitis and with gangrene patient has is discoloration of both legs going on for about 2 months. Had gangrenous changes extend up to both knees. Patient has highly elevated liver blood cell count of 22,000 patient was started on vancomycin and Zosyn. Patient has significant other provided abnormalities including highly elevated potassium of 6.4 low sodium. Severe metabolic acidosis. Highly elevated lactic acid of around 8.4 patient has borderline blood pressure received multiple boluses of IV fluids patient will be started on 125 mL of normal saline. Patient has elevated liver enzymes secondary to shock liver. Chest x-ray mild perihilar infiltrate. Patient lives with her at home. 06/15/2020 patient was evaluated by vascular surgery and infectious disease patient was started on daptomycin, due to nephrotoxicity of vancomycin patient to histamine Zosyn. Patient has a skin necrosis significant. Vascular surgery does not be lieve debridement is a possibility the other possibility being below knee or bony amputations which are patient doesn't want. Without surgical intervention it's hard to address patient's sepsis because of which had a lengthy discussion along with vascular surgeon with as well as the patient patient and later decided she wanted to be hospice. But she wanted to be continued on antibiotics which will be continued patient is presently on D5 with bicarbonate which will also be continued. 06/16/2020 Discussed with her as well. Plan is to not to pursue hospice at this time continue with antibiotics. If needed patient will undergo superficial debridement. We will order labs for tomorrow no labs are available from today. Patient the will be continued on daptomycin and Zosyn. Patient does have urine output. Patient won't cultures are showing gram-negative bacilli and enterococcus. 06/17/2020 Patient has enterococcus faecalis and Enterobacter cloaca, patient remains on daptomycin and Zosyn which will be continued. I'll leave the decision of antibiotics and infectious disease. Patient urine output is marginal and creatinine continued to go up. 06/18/2020 Patient is being continued on Zosyn at this time. Daptomycin was discontinued. Her record today morning labs are still pending patient will be continued on 100 mL of normal saline. Constitutional: No fever Cardio vascular: denied any chest pain, palpitations Gastrointestinal denied any nausea vomiting Pulmonary: Denied any shortness of breath cough Neurologic denied any new focal deficits All inpatient medications were reviewed and appropriate changes in these medications as dictated in the interval history and assessment and plan. Objective - Vital Signs Vital signs: Vital Signs Temp 97.4 F L 06/18/20 08:00 Pulse 90 06/18/20 09:21 Resp 16 06/18/20 09:21 BP 95/64 06/18/20 08:00 Pulse Ox 96 06/18/20 08:00 Intake & Output 06/17/20 06/18/20 06/18/20 18:59 06:59 18:59 Intake Total 1792 840 Output Total 210 Balance 1792 630 Weight 64.5 kg Intake: Intake, IV Titration 1450 600 Amount DAPTOmycin 400 mg In 50 Sodium Chloride 0.9% 50 ml @ 100 mls/hr IVPB Q48H [facility] Rx#:[id number] Piperacillin-Tazobactam 3 200 100 .375 gm In Sodium Chloride 0.9% 100 ml @ 25 mls/hr IVPB Q12H [facility] Rx# :[id number] Sodium Chloride 0.9% 1, 1200 500 000 ml @ 100 mls/hr IV . Q10H [facility] Rx#:[id number] Oral 342 240 Output: Urine 210 Other: Voiding Method Indwelling Catheter Indwelling Catheter Indwelling Catheter - Exam PHYSICAL EXAMINATION: GENERAL: The patient is alert and oriented x3, not in any acute distress. Well developed, well nourished. HEENT: Pupils are round and equally reacting to light. EOMI. No scleral icterus. No conjunctival pallor. Normocephalic, atraumatic. No pharyngeal erythema. No thyromegaly. CARDIOVASCULAR: S1 and S2 present. No murmurs, rubs, or gallops. PULMONARY: Chest is clear to auscultation, no wheezing or crackles. ABDOMEN: Soft, nontender, nondistended, normoactive bowel sounds. No palpable organomegaly. MUSCULOSKELETAL: No joint swelling or deformity. EXTREMITIES: No cyanosis, clubbing, or pedal edema. NEUROLOGICAL: Gross neurological examination did not reveal any focal deficits. SKIN: Patient has extensive cellulitis and skin necrosis of both legs extending up to both knees. - Labs CBC & Chem 7: 06/17/20 09:20 06/17/20 09:20 Labs: Abnormal Lab Results - Last 24 Hours (Table) 06/17/20 06/17/20 Range/Units 11:56 20:06 POC Glucose (mg/dL) 117 H 110 H (75-99) mg/dL Microbiology - Last 24 Hours (Table) 06/14/20 02:30 Blood Culture - Preliminary Blood No Growth after 96 hours 06/15/20 09:30 Anaerobic Culture - Preliminary Leg - Right 06/15/20 09:30 Gram Stain - Final Leg - Right Wound Culture - Final Enterococcus faecalis Assessment and Plan Plan: Severe sepsis or septic shock: Cellulitis with with skin necrosis patient had a CT of both lower extremities which did not show any abscess and there is no mention of necrotizing fasciitis either. Patient will becontinued on Zosyn. Patient has enterococcus and Enterobacter cloaca a on the wound cultures Infectious disease and vascular surgery evaluated the patient. Patient will be continued on normal saline. -Shock liver liver enzymes will be monitored and the elevated liver enzymes secondary to sepsis -Acute renal failure possibly acute tubular necrosis from severe sepsis , creatinine continued to get worse. Minimal improvement in urine output. -Severe hyperkalemia secondary to metabolic acidosis , improving continue with I V fluids -Hyponatremia: Hypovolemic hyponatremia. Sodium remains at 127 -Severe metabolic acidosis: Patient has both the anion gap and non-anion gap metabolic acidosis anion gap metabolic acidosis secondary to lactic acidosis and uremia -Hypoglycemia -Leukocytosis: DVT prophylaxis with subcutaneous heparin
[2020-06-18 11:29] LABS: Potassium 5.7 mmol/L (3.5-5.1)
[2020-06-18 11:30] LABS: Calcium 7.8 mg/dL (8.4-10.2)
[2020-06-18 11:58] LABS: Glucose,Whole Blood 94 mg/dL (75-99)
[2020-06-18 12:02] LABS: Anisocytosis Slight; HCT 32.6 % (34.0-46.0); HGB 9.7 gm/dL (11.4-16.0); Hypochromasia Marked; MCH 27.3 pg (25.0-35.0); MCHC 29.7 g/dL (31.0-37.0); Mean Platelet Volume 10.6; RBC 3.54 m/uL (3.80-5.40); RDW 18.6 % (11.5-15.5)
[2020-06-18 12:03] LABS: Platelet Count 44 k/uL (150-450)
[2020-06-18 12:56] LABS: Band Neutrophils % 1 %; Eosinophils # (M) 0.33 k/uL (0-0.7); Lymphocytes # (M) 0.66 k/uL (1.0-4.8); Myelocytes # (M) 0.17 k/uL (0); Myelocytes % 1 %; Neutrophils % (M) 69 %; Nucleated Red Blood Cells 1 /100 WBC (0-0); Total Cells Counted 200; WBC 16.5 k/uL (3.8-10.6)
[2020-06-18 12:57] LABS: Poikilocytosis (M) Present
[2020-06-18 12:58] LABS: Polychromasia Present
[2020-06-18] MEDS: HEPARIN SODIUM,PORCINE 5,000 UNIT/ML 1 ML VIAL SQ SCH ×2 (13:54→20:40)
--- NOTE | 2020-06-18 14:20 | P.PN ---
Subjective Progress Note Date: 06/18/20 Principal diagnosis: Severe cellulitis of the bilateral lower extremities The patient is seen today 06/18/2020 in follow-up on the selective care unit. She is currently resting in bed. Awake and alert in no acute distress she is maintaining good O2 saturations in the 90s on room air. She's been afebrile. Somewhat hypotensive. Cultures are positive for Enterococcus faecalis. White count 16.5. Hemoglobin 9.7. Platelet count 44,000. Sodium 128. Potassium 5.7. Creatinine 4.57. She remains on daptomycin and Zosyn. 0.9 normal saline at 100 ML's per hour. Objective - Vital Signs Vital signs: Vital Signs Temp 97.4 F L 06/18/20 11:34 Pulse 77 06/18/20 11:39 Resp 17 06/18/20 11:39 BP 97/66 06/18/20 11:39 Pulse Ox 97 06/18/20 11:39 Intake & Output 06/17/20 06/18/20 06/18/20 18:59 06:59 18:59 Intake Total 1792 840 Output Total 210 Balance 1792 630 Weight 64.5 kg Intake: Intake, IV Titration 1450 600 Amount DAPTOmycin 400 mg In 50 Sodium Chloride 0.9% 50 ml @ 100 mls/hr IVPB Q48H [facility] Rx#:[id number] Piperacillin-Tazobactam 3 200 100 .375 gm In Sodium Chloride 0.9% 100 ml @ 25 mls/hr IVPB Q12H [facility] Rx# :[id number] Sodium Chloride 0.9% 1, 1200 500 000 ml @ 100 mls/hr IV . Q10H [facility] Rx#:[id number] Oral 342 240 Output: Urine 210 Other: Voiding Method Indwelling Catheter Indwelling Catheter Indwelling Catheter - Exam GENERAL a 75-year-old female patient, on room air, in no acute distress Head: Atraumatic, normocephalic. EENT: Shows Pallor , no scleral icterus. Oral mucous membrane is dry. No pharyngeal erythema or thrush NECK: no neck masses no JVD no stridor. LUNGS: Unlabored breathing. Decreased breath sound at the base. No wheeze or crackle. HEART: S1, S2, regular rate and rhythm. No loud murmur ABDOMEN: Soft, no tenderness , guarding or rigidity, no organomegaly, suspect o ngoing ascites and abdominal wall edema. EXTREMITIES: significant swelling, erythema, blistering and ulcerations as well as gangrenous changes noted in the skin of both lower extremities with both lower extremities weeping and serous drainage noted. KIN: No rash, no masses palpable. NEUROLOGICAL: alert oriented 3, no gross focal deficits. Psychiatric: Normal mood affect and normal mental status examination - Labs CBC & Chem 7: 06/18/20 10:53 06/18/20 10:53 Labs: Abnormal Lab Results - Last 24 Hours (Table) 06/17/20 06/18/20 06/18/20 Range/Units 20:06 10:53 10:53 WBC 16.5 H (3.8-10.6) k/uL RBC 3.54 L (3.80-5.40) m/uL Hgb 9.7 L (11.4-16.0) gm/dL Hct 32.6 L (34.0-46.0) % MCHC 29.7 L (31.0-37.0) g/dL RDW 18.6 H (11.5-15.5) % Plt Count 44 L (150-450) k/uL Neutrophils # (Manual) 11.50 H (1.3-7.7) k/uL Lymphocytes # (Manual) 0.66 L (1.0-4.8) k/uL Monocytes # (Manual) 3.80 H (0-1.0) k/uL Myelocytes # (Manual) 0.17 H (0) k/uL Nucleated RBCs 1 H (0-0) /100 WBC Sodium 128 L (137-145) mmol/L Potassium 5.7 H (3.5-5.1) mmol/L Carbon Dioxide 14 L (22-30) mmol/L BUN 79 H (7-17) mg/dL Creatinine 4.57 H (0.52-1.04) mg/dL POC Glucose (mg/dL) 110 H (75-99) mg/dL Calcium 7.8 L (8.4-10.2) mg/dL Microbiology - Last 24 Hours (Table) 06/14/20 02:30 Blood Culture - Preliminary Blood No Growth after 96 hours 06/15/20 09:30 Anaerobic Culture - Preliminary Leg - Right 06/15/20 09:30 Gram Stain - Final Leg - Right Wound Culture - Final Enterococcus faecalis Assessment and Plan Assessment: 1 Severe cellulitis, questionable necrotizing fasciitis, not clearly seen on CT of lower extremities. Currently on an Zosyn. Wound cultures positive for enterococcus and Enterobacter cloacae 2 Elevated liver enzymes and ascites, suspect underlying alcohol related liver disease, doubt shock liver as the patient was not hypotensive on presentation. 3 Acute kidney injury secondary to sepsis/severe sepsis from cellulitis of both lower extremities. This is likely a picture of acute tubular necrosis. 4 Acute metabolic acidosis and hyperkalemia secondary to sepsis. 5 Leukocytosis secondary to cellulitis and sepsis. 6 Ascites secondary to possible alcohol related liver disease. 7 Hyponatremia secondary to renal failure and possibly hypovolemia 8 Hyperkalemia associated with acute kidney injury and possible tissue breakdown from necrotic changes of the skin as well as gangrenous changes noted in both lower extremities. That is being addressed by nephrology. Plan: The patient was seen and evaluated by Dr. Jones Currently stable from the pulmonary standpoint Recommendations per vascular surgery Continue antibiotics per ID services Will continue to follow I, the cosigning physician, performed a history & physical examination of the patient. Lungs sounds are clear. Maintaining good O2 saturations in the 90s on room air. I discussed the assessment and plan of care with my nurse practitioner, Ekaterina Molina. I attest to the above note as dictated by her.
[2020-06-18 16:35] LABS: Glucose,Whole Blood 88 mg/dL (75-99)
[2020-06-18] MEDS: HYDROcodone/APAP 5-325MG 1 EACH TAB PO PRN (16:40)
[2020-06-18 20:34] LABS: Glucose,Whole Blood 86 mg/dL (75-99)
--- NOTE | 2020-06-18 22:08 | PN ---
PROGRESS NOTE DATE OF SERVICE: 06/18/2020 REASON FOR FOLLOWUP: Bilateral lower extremity wounds and cellulitis. INTERVAL HISTORY: The patient is currently afebrile. The patient is more awake and alert. The patient is hemodynamically stable. Denies any chest pain or cough. No nausea, vomiting or abdominal pain or any worsening pain to the legs. PHYSICAL EXAMINATION: Blood pressure 97/52 with a pulse of 80, temperature 97.9. She is 97% on room air. General description is an elderly female lying in bed in no distress. RESPIRATORY SYSTEM: Unlabored breathing. Clear to auscultation anteriorly. HEART: S1, S2. Regular rate and rhythm. ABDOMEN: Soft. No tenderness. LEGS: Especially right leg did have multiple ulcerations, bruising. Persistent swelling and redness slightly decreased. LABS: Hemoglobin is 9.7, white count 16.5, creatinine 4.57. DIAGNOSTIC IMPRESSION AND PLAN: Patient with bilateral lower extremity wounds and cellulitis, right greater than left. Culture positive for Enterococcus faecalis and Enterobacter. Should be covered with Zosyn; to continue. Local wound care per Surgery and monitor clinical course closely. MMODL / IJN: [id number] /
[2020-06-19] MEDS: SODIUM CHLORIDE 0.9% 1,000 ML IV SCH ×2 (05:30→11:04)
[2020-06-19] MEDS: PIPERACILLIN-TAZOBACTAM 3.375 GM in SODIUM CHLORIDE 0.9% 100 ML IVPB SCH ×2 (05:37→19:05)
[2020-06-19 06:09] LABS: Glucose,Whole Blood 93 mg/dL (75-99)
[2020-06-19] MEDS ORDERED: SODIUM POLYSTYRENE SULFONATE 15 GM/60 ML BOTTLE PO STA (08:10)
[2020-06-19 08:15] LABS: Bilirubin, Conjugated 3.5 mg/dL (0.0-0.3); Bilirubin, Delta 2.1 mg/dL (0.0-0.2); Calcium 7.6 mg/dL (8.4-10.2); Potassium 5.8 mmol/L (3.5-5.1); Total Bilirubin 6.6 mg/dL (0.2-1.3); Total Protein 5.8 g/dL (6.3-8.2)
[2020-06-19] MEDS: FAMOTIDINE 20 MG TAB PO SCH (08:41)
[2020-06-19 10:56] LABS: Anisocytosis Slight; HCT 33.5 % (34.0-46.0); HGB 9.8 gm/dL (11.4-16.0); Hypochromasia Marked; MCH 27.3 pg (25.0-35.0); MCHC 29.3 g/dL (31.0-37.0); Mean Platelet Volume 11.8; RBC 3.61 m/uL (3.80-5.40); RDW 18.4 % (11.5-15.5); WBC 14.5 k/uL (3.8-10.6)
--- NOTE | 2020-06-19 11:00 | P.PN ---
Subjective 75-year-old womanbrought by ambulance to have evaluation for generalized weakness. The patient states had phoned EMS tonightafter she had s lumped to the ground and not been able to get up due to generalized weakness. The patient does note that over the past few days to a little over a week or so,she has been having worsening of bilateral leg pain, which she describes as burning and aching. The pain is worse if she touches her legs or with movements. She has noted that there has been weeping from ulcerations going back longer than that. Patient has not noted fever or chills. No chest pain or dyspnea. No cough. She is found to be severely septic with bilateral extensive cellulitis and with gangrene patient has is discoloration of both legs going on for about 2 months. Had gangrenous changes extend up to both knees. Patient has highly elevated liver blood cell count of 22,000 patient was started on vancomycin and Zosyn. Patient has significant other provided abnormalities including highly elevated potassium of 6.4 low sodium. Severe metabolic acidosis. Highly elevated lactic acid of around 8.4 patient has borderline blood pressure received multiple boluses of IV fluids patient will be started on 125 mL of normal saline. Patient has elevated liver enzymes secondary to shock liver. Chest x-ray mild perihilar infiltrate. Patient lives with her at home. 06/15/2020 patient was evaluated by vascular surgery and infectious disease patient was started on daptomycin, due to nephrotoxicity of vancomycin patient to histamine Zosyn. Patient has a skin necrosis significant. Vascular surgery does not be lieve debridement is a possibility the other possibility being below knee or bony amputations which are patient doesn't want. Without surgical intervention it's hard to address patient's sepsis because of which had a lengthy discussion along with vascular surgeon with as well as the patient patient and later decided she wanted to be hospice. But she wanted to be continued on antibiotics which will be continued patient is presently on D5 with bicarbonate which will also be continued. 06/16/2020 Discussed with her as well. Plan is to not to pursue hospice at this time continue with antibiotics. If needed patient will undergo superficial debridement. We will order labs for tomorrow no labs are available from today. Patient the will be continued on daptomycin and Zosyn. Patient does have urine output. Patient won't cultures are showing gram-negative bacilli and enterococcus. 06/17/2020 Patient has enterococcus faecalis and Enterobacter cloaca, patient remains on daptomycin and Zosyn which will be continued. I'll leave the decision of antibiotics and infectious disease. Patient urine output is marginal and creatinine continued to go up. 06/18/2020 Patient is being continued on Zosyn at this time. Daptomycin was discontinued. Her record today morning labs are still pending patient will be continued on 100 mL of normal saline. 06/19/2020 Patient was started on bicarb drip because of severe metabolic acidosis. Patient is presently on Zosyn which is being continued. Patient creatinine continued to go up a bit. Patient is hypokalemic secondary to acute renal failure and acidosis for which I ordered kayexalate. Serum sodium remains at 12 7. Constitutional: No fever Cardio vascular: denied any chest pain, palpitations Gastrointestinal denied any nausea vomiting Pulmonary: Denied any shortness of breath cough Neurologic denied any new focal deficits All inpatient medications were reviewed and appropriate changes in these medications as dictated in the interval history and assessment and plan. Objective - Vital Signs Vital signs: Vital Signs Temp 98.2 F 06/19/20 08:00 Pulse 77 06/19/20 08:00 Resp 17 06/19/20 08:00 BP 104/72 06/19/20 08:00 Pulse Ox 97 06/19/20 08:00 Intake & Output 06/18/20 06/19/20 06/19/20 18:59 06:59 18:59 Intake Total 360 1780 Output Total 125 Balance 360 1655 Weight 64.7 kg Intake: Intake, IV Titration 1300 Amount Piperacillin-Tazobactam 3 100 .375 gm In Sodium Chloride 0.9% 100 ml @ 25 mls/hr IVPB Q12H [facility] Rx# :[id number] Sodium Chloride 0.9% 1, 1200 000 ml @ 100 mls/hr IV . Q10H [facility] Rx#:[id number] Oral 360 480 Output: Urine 125 Uretheral (Fischer) 125 Other: Voiding Method Indwelling Catheter Indwelling Catheter Indwelling Catheter # Voids 1 1 - Exam PHYSICAL EXAMINATION: GENERAL: The patient is alert and oriented x3, not in any acute distress. Well developed, well nourished. HEENT: Pupils are round and equally reacting to light. EOMI. No scleral icterus. No conjunctival pallor. Normocephalic, atraumatic. No pharyngeal erythema. No thyromegaly. CARDIOVASCULAR: S1 and S2 present. No murmurs, rubs, or gallops. PULMONARY: Chest is clear to auscultation, no wheezing or crackles. ABDOMEN: Soft, nontender, nondistended, normoactive bowel sounds. No palpable organomegaly. MUSCULOSKELETAL: No joint swelling or deformity. EXTREMITIES: No cyanosis, clubbing, or pedal edema. NEUROLOGICAL: Gross neurological examination did not reveal any focal deficits. SKIN: Patient has extensive cellulitis and skin necrosis of both legs extending up to both knees. Patient to both legs are wrapped with gauze. I didn't examine her legs today but as per infectious disease there is some improvement. - Labs CBC & Chem 7: 06/18/20 10:53 06/19/20 07:16 Labs: Abnormal Lab Results - Last 24 Hours (Table) 06/18/20 06/18/20 06/19/20 Range/Units 10:53 10:53 07:16 WBC 16.5 H (3.8-10.6) k/uL RBC 3.54 L (3.80-5.40) m/uL Hgb 9.7 L (11.4-16.0) gm/dL Hct 32.6 L (34.0-46.0) % MCHC 29.7 L (31.0-37.0) g/dL RDW 18.6 H (11.5-15.5) % Plt Count 44 L (150-450) k/uL Neutrophils # (Manual) 11.50 H (1.3-7.7) k/uL Lymphocytes # (Manual) 0.66 L (1.0-4.8) k/uL Monocytes # (Manual) 3.80 H (0-1.0) k/uL Myelocytes # (Manual) 0.17 H (0) k/uL Nucleated RBCs 1 H (0-0) /100 WBC Sodium 128 L 127 L (137-145) mmol/L Potassium 5.7 H 5.8 H (3.5-5.1) mmol/L Carbon Dioxide 14 L 13 L (22-30) mmol/L BUN 79 H 80 H (7-17) mg/dL Creatinine 4.57 H 4.63 H (0.52-1.04) mg/dL Glucose 69 L (74-99) mg/dL Calcium 7.8 L 7.6 L (8.4-10.2) mg/dL Total Bilirubin 6.6 H (0.2-1.3) mg/dL Conjugated Bilirubin 3.5 H (0.0-0.3) mg/dL Delta Bilirubin 2.1 H (0.0-0.2) mg/dL AST 120 H (14-36) U/L ALT 72 H (4-34) U/L Alkaline Phosphatase 206 H (38-126) U/L Total Protein 5.8 L (6.3-8.2) g/dL Albumin 2.0 L (3.5-5.0) g/dL Microbiology - Last 24 Hours (Table) 06/14/20 02:30 Blood Culture - Preliminary Blood No Growth after 120 hours 06/14/20 17:16 Anaerobic Culture - Final Leg - Left Assessment and Plan Plan: Severe sepsis or septic shock: Cellulitis with with skin necrosis patient had a CT of both lower extremities which did not show any abscess and there is no mention of necrotizing fasciitis either. Patient will becontinued on Zosyn. Patient has enterococcus and Enterobacter cloaca a on the wound cultures Infecti ous disease and vascular surgery evaluated the patient. Patient will be continued on normal saline. -Shock liver liver enzymes will be monitored and the elevated liver enzymes secondary to sepsis -Acute renal failure possibly acute tubular necrosis from severe sepsis , creatinine continued to get worse. Minimal improvement in urine output. -Severe hyperkalemia secondary to metabolic acidosis , improving continue with IV fluids -Hyponatremia: Hypovolemic hyponatremia. Sodium remains at 127 -Severe metabolic acidosis: Secondary to acute renal failure now. Patient was started on a bicarbonate drip -Hypoglycemia -Leukocytosis: DVT prophylaxis with subcutaneous heparin
[2020-06-19 11:01] LABS: Platelet Count 29 k/uL (150-450)
[2020-06-19] MEDS ORDERED: DEXTROSE 5% IN WATER 1,000 ML with SODIUM BICARB (1 MEQ/ML) 150 ML IV SCH (11:30)
--- NOTE | 2020-06-19 11:44 | PN ---
PROGRESS NOTE Patient is seen for followup for acute kidney injury. Patient has severe lower extremity cellulitis and acute renal failure, which is mainly oliguric. She does not have significant urine output. Initially, there were plans for possible hospice care. Therefore, we were not seeing the patient on a regular basis. However, it appears now they want to continue with medical treatment. There was discussion regarding possible amputation of the lower extremities, given the severe cellulitis and gangrene. However, at this time, the plan is to continue with antibiotics. PHYSICAL EXAMINATION: Today, patient is comfortable. She is confused. Blood pressure is 104/72, heart rate 83 per minute, she is afebrile. Examination of the heart S1, S2. Examination of the lungs, bilateral breath sounds are heard. Abdomen is soft, nontender. Examination of the lower extremities shows bilateral extremities to be wrapped. Significant drainage is noted. LABS: Show sodium 127, potassium 5.8, chloride 106, CO2 is 13. The hemoglobin 9.8, BUN 80, serum creatinine 4.63. ASSESSMENT: 1. Acute kidney injury, acute tubular necrosis, currently oliguric associated with underlying infection and hypotension. Will resume the bicarb drip. I do not believe patient is an ideal candidate for dialysis if her renal function continues to worsen or potassium does not improve. Hopefully with correction of acidosis, her potassium level will improve. 2. Hyperkalemia associated with acute kidney injury, metabolic acidosis. Expect improvement with initiation of bicarb drip. 3. Hyponatremia associated with renal failure and volume depletion. 4. Severe metabolic acidosis associated with renal failure, expect improvement with initiation of bicarb drip. 5. Bilateral lower extremity cellulitis with necroses and gangrene, maintained on antibiotics. PLAN: Start IV bicarb and repeat labs this evening. Overall prognosis is poor. Patient is not an ideal candidate for dialysis in case her renal function worsens or hyperkalemia worsens. MMODL / IJN: [id number] /
[2020-06-19 12:01] LABS: Glucose,Whole Blood 83 mg/dL (75-99)
--- NOTE | 2020-06-19 13:55 | P.PN ---
Subjective Progress Note Date: 06/19/20 Principal diagnosis: Severe cellulitis of the bilateral lower extremities The patient is seen today 06/18/2020 in follow-up on the selective care unit. She is currently resting in bed. Awake and alert in no acute distress she is maintaining good O2 saturations in the 90s on room air. She's been afebrile. Somewhat hypotensive. Cultures are positive for Enterococcus faecalis. White count 16.5. Hemoglobin 9.7. Platelet count 44,000. Sodium 128. Potassium 5.7. Creatinine 4.57. She remains on daptomycin and Zosyn. 0.9 normal saline at 100 ML's per hour. The patient is seen today 06/19/2020 in follow-up on the selective care unit. She is awake and alert in no acute distress. Resting fairly comfortably in bed. She is maintaining good O2 saturations in the upper 90s on room air. She's been afebrile. Hemodynamically stable. Wound cultures are positive for Enterococcus faecalis and Enterobacter cloacae. White count 14.5. Hemoglobin 9.8. Platelet count 29,000. Sodium 127. Potassium 5.8. Creatinine 4.63. Currently on Zosyn. Objective - Vital Signs Vital signs: Vital Signs Temp 98.2 F 06/19/20 08:00 Pulse 65 06/19/20 12:00 Resp 17 06/19/20 12:00 BP 104/72 06/19/20 08:00 Pulse Ox 97 06/19/20 08:00 Intake & Output 06/18/20 06/19/20 06/19/20 18:59 06:59 18:59 Intake Total 360 1780 120 Output Total 125 Balance 360 1655 120 Weight 64.7 kg Intake: Intake, IV Titration 1300 Amount Piperacillin-Tazobactam 3 100 .375 gm In Sodium Chloride 0.9% 100 ml @ 25 mls/hr IVPB Q12H [facility] Rx# :[id number] Sodium Chloride 0.9% 1, 1200 000 ml @ 100 mls/hr IV . Q10H [facility] Rx#:[id number] Oral 360 480 120 Output: Urine 125 Uretheral (Fischer) 125 Other: Voiding Method Indwelling Catheter Indwelling Catheter Indwelling Catheter # Voids 1 0 - Exam GENERAL: Alert, pleasant, 75-year-old female patient, on room air, in no acute distress Head: Atraumatic, normocephalic. EENT: Shows Pallor , no scleral icterus. Oral mucous membrane is dry. No pharyngeal erythema or thrush NECK: no neck masses no JVD no stridor. LUNGS: Unlabored breathing. Decreased breath sound at the base. No wheeze or crackle. HEART: S1, S2, regular rate and rhythm. No loud murmur ABDOMEN: Soft, no tenderness , guarding or rigidity, no organomegaly, suspect ongoing ascites and abdominal wall edema. EXTREMITIES: significant swelling, erythema, blistering and ulcerations as well as gangrenous changes noted in the skin of both lower extremities with both lower extremities weeping and serous drainage noted. SKIN: No rash, no masses palpable. NEUROLOGICAL: alert oriented 3, no gross focal deficits. Psychiatric: Normal mood affect and normal mental status examination - Labs CBC & Chem 7: 06/19/20 07:16 06/19/20 07:16 Labs: Abnormal Lab Results - Last 24 Hours (Table) 06/19/20 06/19/20 Range/Units 07:16 07:16 WBC 14.5 H (3.8-10.6) k/uL RBC 3.61 L (3.80-5.40) m/uL Hgb 9.8 L (11.4-16.0) gm/dL Hct 33.5 L (34.0-46.0) % MCHC 29.3 L (31.0-37.0) g/dL RDW 18.4 H (11.5-15.5) % Plt Count 29 L (150-450) k/uL Sodium 127 L (137-145) mmol/L Potassium 5.8 H (3.5-5.1) mmol/L Carbon Dioxide 13 L (22-30) mmol/L BUN 80 H (7-17) mg/dL Creatinine 4.63 H (0.52-1.04) mg/dL Glucose 69 L (74-99) mg/dL Calcium 7.6 L (8.4-10.2) mg/dL Total Bilirubin 6.6 H (0.2-1.3) mg/dL Conjugated Bilirubin 3.5 H (0.0-0.3) mg/dL Delta Bilirubin 2.1 H (0.0-0.2) mg/dL AST 120 H (14-36) U/L ALT 72 H (4-34) U/L Alkaline Phosphatase 206 H (38-126) U/L Total Protein 5.8 L (6.3-8.2) g/dL Albumin 2.0 L (3.5-5.0) g/dL Microbiology - Last 24 Hours (Table) 06/14/20 02:30 Blood Culture - Preliminary Blood No Growth after 120 hours 06/14/20 17:16 Anaerobic Culture - Final Leg - Left Assessment and Plan Assessment: 1 Severe cellulitis, questionable necrotizing fasciitis, not clearly seen on CT of lower extremities. Currently on an Zosyn. Wound cultures positive for enterococcus faecalis and enterobacter cloacae 2 Elevated liver enzymes and ascites, suspect underlying alcohol related liver disease, doubt shock liver as the patient was not hypotensive on presentation. 3 Acute kidney injury secondary to sepsis/severe sepsis from cellulitis of both lower extremities. This is likely a picture of acute tubular necrosis. 4 Acute metabolic acidosis and hyperkalemia secondary to sepsis. Initiated on a bicarb drip. 5 Leukocytosis secondary to cellulitis and sepsis. 6 Ascites secondary to possible alcohol related liver disease. 7 Hyponatremia secondary to renal failure and possibly hypovolemia 8 Hyperkalemia associated with acute kidney injury and possible tissue breakdown from necrotic changes of the skin as well as gangrenous changes noted in both lower extremities. That is being addressed by nephrology. Plan: The patient was seen and evaluated by Dr. Jones Currently stable from the pulmonary standpoint We will follow him on an as-needed basis. I, the cosigning physician, performed a history & physical examination of the patient. Lungs sounds are clear. Maintaining good O2 saturations in the 90s on room air. I discussed the assessment and plan of care with my nurse practitioner, Ekaterina Molina. I attest to the above note as dictated by her.
[2020-06-19 17:09] LABS: Calcium 7.4 mg/dL (8.4-10.2); Potassium 5.4 mmol/L (3.5-5.1)
[2020-06-19 17:16] LABS: Glucose,Whole Blood 101 mg/dL (75-99)
[2020-06-19 20:20] LABS: Glucose,Whole Blood 133 mg/dL (75-99)
[2020-06-19] MEDS: SODIUM CHLORIDE 0.45% 1,000 ML with SODIUM BICARB (1 MEQ/ML) 150 ML IV SCH ×2 (21:08)
--- NOTE | 2020-06-19 22:21 | PN ---
PROGRESS NOTE DATE OF SERVICE: 06/19/2020 REASON FOR FOLLOWUP: Bilateral lower extremity cellulitis and wound. INTERVAL HISTORY: Patient is currently afebrile. The patient is breathing comfortably. Denies any chest pain or cough. No abdominal pain or any worsening pain in the lower extremity. PHYSICAL EXAMINATION: Blood pressure 110/67, pulse of 77, temperature 97.9. She is 97% on room air. General description: The patient is an elderly female lying in bed in no distress. Respiratory system: Unlabored breathing, clear to auscultation anteriorly. Heart S1, S2. Regular rate and rhythm. Abdomen: Soft, no tenderness. Legs are currently wrapped up. No obvious drainage on the dressing. LABS: White count is down to 14.5 from yesterday of 16.5 with a creatinine is 4.64. DIAGNOSTIC IMPRESSION AND PLAN: Patient with bilateral lower extremity wounds cellulitis. Culture with Enterococcus faecalis, Enterobacter. Patient is currently covered with Zosyn to cover for both pathogens. Local care to continue as per Surgery and continue supportive care. MMODL / IJN: [id number] /
[2020-06-20] MEDS: PIPERACILLIN-TAZOBACTAM 3.375 GM in SODIUM CHLORIDE 0.9% 100 ML IVPB SCH ×2 (05:52→17:21)
[2020-06-20 06:24] LABS: Glucose,Whole Blood 72 mg/dL (75-99)
[2020-06-20] MEDS: FAMOTIDINE 20 MG TAB PO SCH (08:10)
[2020-06-20 09:21] LABS: Calcium 7.2 mg/dL (8.4-10.2); Total Bilirubin 6.2 mg/dL (0.2-1.3); Total Protein 5.6 g/dL (6.3-8.2)
[2020-06-20 10:06] LABS: Anisocytosis Slight; HCT 34.9 % (34.0-46.0); HGB 10.6 gm/dL (11.4-16.0); Hypochromasia Marked; MCH 28.5 pg (25.0-35.0); MCHC 30.4 g/dL (31.0-37.0); MCV 93.7 fL (80.0-100.0); Mean Platelet Volume 11.4; RBC 3.72 m/uL (3.80-5.40); RDW 18.4 % (11.5-15.5); WBC 12.1 k/uL (3.8-10.6)
[2020-06-20 10:14] LABS: Platelet Count 30 k/uL (150-450)
[2020-06-20] MEDS ORDERED: INSULIN REGULAR 100 UNIT/ML VIAL IV ONE (10:23)
[2020-06-20] MEDS: DEXTROSE 50% SYRINGE 50 ML IVP STA (10:52)
[2020-06-20] MEDS: SODIUM CHLORIDE 0.45% 1,000 ML with SODIUM BICARB (1 MEQ/ML) 150 ML IV SCH ×2 (10:53)
--- NOTE | 2020-06-20 12:25 | P.PN ---
Subjective 75-year-old womanbrought by ambulance to have evaluation for generalized weakness. The patient states had phoned EMS tonightafter she had s lumped to the ground and not been able to get up due to generalized weakness. The patient does note that over the past few days to a little over a week or so,she has been having worsening of bilateral leg pain, which she describes as burning and aching. The pain is worse if she touches her legs or with movements. She has noted that there has been weeping from ulcerations going back longer than that. Patient has not noted fever or chills. No chest pain or dyspnea. No cough. She is found to be severely septic with bilateral extensive cellulitis and with gangrene patient has is discoloration of both legs going on for about 2 months. Had gangrenous changes extend up to both knees. Patient has highly elevated liver blood cell count of 22,000 patient was started on vancomycin and Zosyn. Patient has significant other provided abnormalities including highly elevated potassium of 6.4 low sodium. Severe metabolic acidosis. Highly elevated lactic acid of around 8.4 patient has borderline blood pressure received multiple boluses of IV fluids patient will be started on 125 mL of normal saline. Patient has elevated liver enzymes secondary to shock liver. Chest x-ray mild perihilar infiltrate. Patient lives with her at home. 06/15/2020 patient was evaluated by vascular surgery and infectious disease patient was started on daptomycin, due to nephrotoxicity of vancomycin patient to histamine Zosyn. Patient has a skin necrosis significant. Vascular surgery does not be lieve debridement is a possibility the other possibility being below knee or bony amputations which are patient doesn't want. Without surgical intervention it's hard to address patient's sepsis because of which had a lengthy discussion along with vascular surgeon with as well as the patient patient and later decided she wanted to be hospice. But she wanted to be continued on antibiotics which will be continued patient is presently on D5 with bicarbonate which will also be continued. 06/16/2020 Discussed with her as well. Plan is to not to pursue hospice at this time continue with antibiotics. If needed patient will undergo superficial debridement. We will order labs for tomorrow no labs are available from today. Patient the will be continued on daptomycin and Zosyn. Patient does have urine output. Patient won't cultures are showing gram-negative bacilli and enterococcus. 06/17/2020 Patient has enterococcus faecalis and Enterobacter cloaca, patient remains on daptomycin and Zosyn which will be continued. I'll leave the decision of antibiotics and infectious disease. Patient urine output is marginal and creatinine continued to go up. 06/18/2020 Patient is being continued on Zosyn at this time. Daptomycin was discontinued. Her record today morning labs are still pending patient will be continued on 100 mL of normal saline. 06/19/2020 Patient was started on bicarb drip because of severe metabolic acidosis. Patient is presently on Zosyn which is being continued. Patient creatinine continued to go up a bit. Patient is hypokalemic secondary to acute renal failure and acidosis for which I ordered kayexalate. Serum sodium remains at 12 7. 06/20/2020 Patient continues to have metabolic acidosis patient is on IV bicarbonate patient continues to have hyperkalemia. No significant improvement in her electrolytes. Patient urine output is still low. Patient can use to be on IV antibiotics we'll continue with IV antibiotics until Tuesday further plan and decisions depending on her improvement till then. Constitutional: No fever Cardio vascular: denied any chest pain, palpitations Gastrointestinal denied any nausea vomiting Pulmonary: Denied any shortness of breath cough Neurologic denied any new focal deficits All inpatient medications were reviewed and appropriate changes in these medications as dictated in the interval history and assessment and plan. Objective - Vital Signs Vital signs: Vital Signs Temp 97.6 F 06/20/20 08:00 Pulse 77 06/20/20 08:00 Resp 18 06/20/20 08:00 BP 105/58 06/20/20 08:00 Pulse Ox 97 06/20/20 08:00 Intake & Output 06/19/20 06/20/20 06/20/20 18:59 06:59 18:59 Intake Total 240 450 Output Total 50 Balance 190 450 Weight 70.5 kg Intake: Oral 240 450 Output: Urine 50 Other: Voiding Method Indwelling Catheter Indwelling Catheter Indwelling Catheter # Voids 0 - Exam PHYSICAL EXAMINATION: GENERAL: The patient is alert and oriented x3, not in any acute distress. Well developed, well nourished. HEENT: Pupils are round and equally reacting to light. EOMI. No scleral icterus. No conjunctival pallor. Normocephalic, atraumatic. No pharyngeal erythema. No thyromegaly. CARDIOVASCULAR: S1 and S2 present. No murmurs, rubs, or gallops. PULMONARY: Chest is clear to auscultation, no wheezing or crackles. ABDOMEN: Soft, nontender, nondistended, normoactive bowel sounds. No palpable organomegaly. MUSCULOSKELETAL: No joint swelling or deformity. EXTREMITIES: No cyanosis, clubbing, or pedal edema. NEUROLOGICAL: Gross neurological examination did not reveal any focal deficits. SKIN: Patient has extensive cellulitis and skin necrosis of both legs extending up to both knees. Patient to both legs are wrapped with gauze. I didn't examine her legs today but as per infectious disease there is some improvement. - Labs CBC & Chem 7: 06/20/20 08:15 06/20/20 08:15 Labs: Abnormal Lab Results - Last 24 Hours (Table) 06/19/20 06/19/20 06/19/20 Range/Units 16:29 17:13 20:17 WBC (3.8-10.6) k/uL RBC (3.80-5.40) m/uL Hgb (11.4-16.0) gm/dL MCHC (31.0-37.0) g/dL RDW (11.5-15.5) % Plt Count (150-450) k/uL Sodium 126 L (137-145) mmol/L Potassium 5.4 H (3.5-5.1) mmol/L Carbon Dioxide 11 L (22-30) mmol/L BUN 78 H (7-17) mg/dL Creatinine 4.64 H (0.52-1.04) mg/dL Glucose 101 H (74-99) mg/dL POC Glucose (mg/dL) 101 H 133 H (75-99) mg/dL Calcium 7.4 L (8.4-10.2) mg/dL Total Bilirubin (0.2-1.3) mg/dL AST (14-36) U/L ALT (4-34) U/L Alkaline Phosphatase (38-126) U/L Total Protein (6.3-8.2) g/dL Albumin (3.5-5.0) g/dL 06/20/20 06/20/20 06/20/20 Range/Units 06:20 08:15 08:15 WBC 12.1 H (3.8-10.6) k/uL RBC 3.72 L (3.80-5.40) m/uL Hgb 10.6 L (11.4-16.0) gm/dL MCHC 30.4 L (31.0-37.0) g/dL RDW 18.4 H (11.5-15.5) % Plt Count 30 L (150-450) k/uL Sodium 127 L (137-145) mmol/L Potassium 6.0 H (3.5-5.1) mmol/L Carbon Dioxide 12 L (22-30) mmol/L BUN 82 H (7-17) mg/dL Creatinine 4.56 H (0.52-1.04) mg/dL Glucose (74-99) mg/dL POC Glucose (mg/dL) 72 L (75-99) mg/dL Calcium 7.2 L (8.4-10.2) mg/dL Total Bilirubin 6.2 H (0.2-1.3) mg/dL AST 139 H (14-36) U/L ALT 71 H (4-34) U/L Alkaline Phosphatase 239 H (38-126) U/L Total Protein 5.6 L (6.3-8.2) g/dL Albumin 2.0 L (3.5-5.0) g/dL Microbiology - Last 24 Hours (Table) 06/14/20 02:30 Blood Culture - Final Blood No Growth after 144 hours 06/15/20 09:30 Anaerobic Culture - Final Leg - Right Assessment and Plan Plan: Severe sepsis or septic shock: Cellulitis with with skin necrosis patient had a CT of both lower extremities which did not show any abscess and there is no mention of necrotizing fasciitis either. Patient will becontinued on Zosyn. Patient has enterococcus and Enterobacter cloaca a on the wound cultures Infectious disease and vascular surgery evaluated the patient. Patient will be continued on normal saline. -Shock liver liver enzymes will be monitored and the elevated liver enzymes sec ondary to sepsis -Acute renal failure possibly acute tubular necrosis from severe sepsis , creatinine continued to get worse. Minimal improvement in urine output. -Severe hyperkalemia secondary to metabolic acidosis , serum potassium is still high at 6 part of which is hemoptysis. -Hyponatremia: Hypovolemic hyponatremia. Sodium remains at 127 -Severe metabolic acidosis: Secondary to acute renal failure now. Patient was started on a bicarbonate drip -Hypoglycemia -Leukocytosis: DVT prophylaxis with subcutaneous heparin
[2020-06-20 12:33] LABS: Glucose,Whole Blood 92 mg/dL (75-99)
--- NOTE | 2020-06-20 12:34 | PN ---
PROGRESS NOTE Patient is seen for followup for acute kidney injury. She was admitted to the hospital with severe bilateral lower extremity cellulitis with necrosis and gangrene on the skin of both legs. Currently patient is being managed conservatively. There were initial plans to switch to hospice care and therefore patient was not seen for a couple of days. However, family has decided to proceed with aggressive medical care for now. The bicarb drip was restarted yesterday. The patient continues to have very poor urine output. She has an indwelling Fischer catheter. Serum creatinine remains elevated at 4.6 mg/dL. The patient remains acidotic as well with persistent hyperkalemia. Renal replacement therapy will be discussed with the family, however, I believe they want to proceed with conservative management for now. PHYSICAL EXAMINATION: On examination today, patient is comfortable. She is not in any acute distress. She is confused. Blood pressure is 105/58, heart rate 83 per minute, she is afebrile. Examination of the heart S1, S2. Examination of the lungs, bilateral breath sounds are heard. Abdomen is soft, nontender. Examination of lower extremities shows bilateral extremities to be wrapped with significant drainage and weeping. There has been necrosis and gangrene on the lower extremities. LENS GRINDER exam grossly intact. Patient is confused. She is moving her extremities. LAB: Show sodium 127, potassium 6.0, chloride 102, CO2 is 12, BUN 82, serum creatinine 4.56, hemoglobin 10.6 g/dL. ASSESSMENT: 1. Acute kidney injury, acute tubular necrosis, currently oliguric with persistent hyperkalemia and acidosis. Ideally patient should be dialyzed as she has not had any improvement in her renal function and remains with poor urine output. However, if family is contemplating conservative management, we need to discuss hospice care options more aggressively. The patient will likely not be an ideal candidate for long-term renal replacement therapy. 2. Severe metabolic acidosis non gap associated with renal failure, maintained on IV bicarb. 3. Hyperkalemia associated with acute kidney injury. Will treat with IV insulin and D50. 4. Hyponatremia associated with renal failure and some degree of hypovolemia. Currently maintained on slightly hypertonic bicarb drip. This is all expected to improve with initiation of dialysis if it is decided. PLAN: Discussed renal replacement therapy with family. Ideally patient is not an ideal candidate for long-term dialysis. However, if they want to pursue aggressive treatment, she will need to start dialysis as patient remains persistently hyperkalemic and acidotic with poor urine output. REBECCA / IJN: [id number] /
[2020-06-20 14:18] VITALS: BMI 30.3
[2020-06-20 16:49] LABS: Glucose,Whole Blood 85 mg/dL (75-99)
[2020-06-20] MEDS ORDERED: FUROSEMIDE 10 MG/ML 10 ML VIAL IV STA (18:24)
--- NOTE | 2020-06-20 19:13 | PN ---
PROGRESS NOTE DATE OF SERVICE: 06/20/2020 ADDENDUM: I discussed with the patient's , Krish regarding her renal failure and at this time patient has been wants to proceed with dialysis. He is not ready for hospice yet. I have advised him that she is not an ideal candidate for long-term renal replacement therapy. However, he said that he would like to try it for the next few days. I will proceed with PermCath placement and we will plan on her first treatment tomorrow. REBECCA / JOSE: [id number] /
[2020-06-20 20:57] LABS: Glucose,Whole Blood 90 mg/dL (75-99)
--- NOTE | 2020-06-20 22:25 | PN ---
PROGRESS NOTE DATE OF SERVICE: 06/20/2020 REASON FOR FOLLOWUP: Bilateral lower extremity venous ulcer and cellulitis. INTERVAL HISTORY: Patient is currently afebrile. The patient appears to be slightly sleepy and lethargic and not able to provide reliable history. No vomiting or diarrhea ( ) reported by the nursing staff. PHYSICAL EXAMINATION: Blood pressure 101/68 with a pulse of 89, temperature 98.2. She is 95% on room air. General description is an elderly female lying in bed in no distress. Respiratory system: Unlabored breathing, clear to auscultation anteriorly. Heart S1, S2. Regular rate and rhythm. Abdomen soft, no tenderness. Legs are currently wrapped up, minimal drainage on the dressing. LABS: Hemoglobin is 10.3, white count 12.1, creatinine is 4.56. DIAGNOSTIC IMPRESSION AND PLAN: Patient with bilateral lower extremity venostasis ulcers, right greater than left in this patient with culture positive for Enterobacter, Enterococcus faecalis. Patient is covered with Zosyn ( ). Local care to continue per Surgery and monitor clinical course closely. MMODL / IJN: [id number] /
[2020-06-21] MEDS: HYDROcodone/APAP 5-325MG 1 EACH TAB PO PRN ×2 (03:56→12:14)
[2020-06-21 06:16] LABS: Hepatitis B Surface AB- Quant 11.3 mIU/mL; Hepatitis B Surface Antibody Equivocal (Non-Reactive); Hepatitis B Surface Antigen Non-Reactive (Non-Reactive)
[2020-06-21 06:23] LABS: Glucose,Whole Blood 73 mg/dL (75-99)
[2020-06-21] MEDS: PIPERACILLIN-TAZOBACTAM 3.375 GM in SODIUM CHLORIDE 0.9% 100 ML IVPB SCH ×2 (06:37→18:39)
[2020-06-21] MEDS: FAMOTIDINE 20 MG TAB PO SCH (09:46)
--- NOTE | 2020-06-21 11:14 | P.PN ---
Subjective Progress Note Date: 06/21/20 Principal diagnosis: This is 75-year-old female who was initially admitted with generalized weakness, found to have significant cellulitis of both lower extremities, ischemic legs. She is seen with acute kidney injury from sepsis ATN and her creatinine has continued to go up. Additionally she has severe non-gap metabolic acidosis from acute kidney injury. She has been treated with vancomycin and Zosyn. She is known with bypass of her legs with stent and history of hypertension and not known to be diabetic There has been some confusion regarding her level of care. Initially there was thoughts of hospice but then the patient's changes mind and wanted full care. Dialysis was therefore not recommended but on the insistence of the is being proceeded with. A permacath or AV axis surgery is scheduled today and is pending. Patient states she is not feeling well tired and sick of staying in bed. Denies any nausea vomiting diarrhea she has poor appetite. No abdominal pain. Objective - Vital Signs Vital signs: Vital Signs Temp 97.4 F L 06/21/20 08:00 Pulse 79 06/21/20 08:00 Resp 18 06/21/20 08:00 BP 101/66 06/21/20 08:00 Pulse Ox 96 06/21/20 08:00 Intake & Output 06/20/20 06/21/20 06/21/20 18:59 06:59 18:59 Intake Total 100 900 Output Total 245 Balance -145 900 Weight 70.5 kg 72.2 kg Intake: Oral 100 900 Output: Urine 245 Other: Voiding Method Indwelling Catheter Indwelling Catheter # Voids 0 On exam she looks ill and depressed pale HEENT exam no JVP neck is supple no facial asymmetry Lungs are clear to auscultation fair air entry bilaterally Heart sounds are unremarkable for any murmur rub gallop Abdomen soft nontender no masses felt Extremity exam bilateral dressing up to her mid thighs and some edema above that. Neurologically awake alert and no asterixis - Labs CBC & Chem 7: 06/20/20 08:15 06/20/20 14:28 Labs: Abnormal Lab Results - Last 24 Hours (Table) 06/20/20 06/21/20 Range/Units 08:15 06:21 POC Glucose (mg/dL) 73 L (75-99) mg/dL Hep Bs Antibody Equivocal A (Non-Reactive) Assessment and Plan Assessment: Impression 1. Acute kidney injury from septic syndrome. Oliguric with creatinine going up, from 3.34 on 06/14/2022 4.56. 2. Previous creatinines available are from 2017 0.8. 3. Admitted with generalized weakness cellulitis and ischemic legs bilaterally with past history of stents in her legs 4. Significant generalized debility 5. Significant non-gap acidosis with bicarb 12 and gap 13 6. Hyperkalemia secondary acute kidney injury 7. Hemoglobin is 10.6 anemia off chronic illness Recommendation 1. Will maintain current medications 2. Proceed with dialysis as decided yesterday by Dr. Reyes and the family. Pending access 3. Expect sodium and acidosis to improve with dialysis
[2020-06-21] MEDS: SODIUM CHLORIDE 0.45% 1,000 ML with SODIUM BICARB (1 MEQ/ML) 150 ML IV SCH ×4 (12:14→18:40)
[2020-06-21 12:22] LABS: Glucose,Whole Blood 86 mg/dL (75-99)
--- NOTE | 2020-06-21 13:19 | P.PN ---
Subjective 75-year-old womanbrought by ambulance to have evaluation for generalized weakness. The patient states had phoned EMS tonightafter she had s lumped to the ground and not been able to get up due to generalized weakness. The patient does note that over the past few days to a little over a week or so,she has been having worsening of bilateral leg pain, which she describes as burning and aching. The pain is worse if she touches her legs or with movements. She has noted that there has been weeping from ulcerations going back longer than that. Patient has not noted fever or chills. No chest pain or dyspnea. No cough. She is found to be severely septic with bilateral extensive cellulitis and with gangrene patient has is discoloration of both legs going on for about 2 months. Had gangrenous changes extend up to both knees. Patient has highly elevated liver blood cell count of 22,000 patient was started on vancomycin and Zosyn. Patient has significant other provided abnormalities including highly elevated potassium of 6.4 low sodium. Severe metabolic acidosis. Highly elevated lactic acid of around 8.4 patient has borderline blood pressure received multiple boluses of IV fluids patient will be started on 125 mL of normal saline. Patient has elevated liver enzymes secondary to shock liver. Chest x-ray mild perihilar infiltrate. Patient lives with her at home. 06/15/2020 patient was evaluated by vascular surgery and infectious disease patient was started on daptomycin, due to nephrotoxicity of vancomycin patient to histamine Zosyn. Patient has a skin necrosis significant. Vascular surgery does not be lieve debridement is a possibility the other possibility being below knee or bony amputations which are patient doesn't want. Without surgical intervention it's hard to address patient's sepsis because of which had a lengthy discussion along with vascular surgeon with as well as the patient patient and later decided she wanted to be hospice. But she wanted to be continued on antibiotics which will be continued patient is presently on D5 with bicarbonate which will also be continued. 06/16/2020 Discussed with her as well. Plan is to not to pursue hospice at this time continue with antibiotics. If needed patient will undergo superficial debridement. We will order labs for tomorrow no labs are available from today. Patient the will be continued on daptomycin and Zosyn. Patient does have urine output. Patient won't cultures are showing gram-negative bacilli and enterococcus. 06/17/2020 Patient has enterococcus faecalis and Enterobacter cloaca, patient remains on daptomycin and Zosyn which will be continued. I'll leave the decision of antibiotics and infectious disease. Patient urine output is marginal and creatinine continued to go up. 06/18/2020 Patient is being continued on Zosyn at this time. Daptomycin was discontinued. Her record today morning labs are still pending patient will be continued on 100 mL of normal saline. 06/19/2020 Patient was started on bicarb drip because of severe metabolic acidosis. Patient is presently on Zosyn which is being continued. Patient creatinine continued to go up a bit. Patient is hypokalemic secondary to acute renal failure and acidosis for which I ordered kayexalate. Serum sodium remains at 12 7. 06/20/2020 Patient continues to have metabolic acidosis patient is on IV bicarbonate patient continues to have hyperkalemia. No significant improvement in her electrolytes. Patient urine output is still low. Patient can use to be on IV antibiotics we'll continue with IV antibiotics until Tuesday further plan and decisions depending on her improvement till then. 06/21/2020 believe patient may need the s temporary hemodialysis because of persistent hyperkalemia although her hyperkalemia improved patient kidney function marginally improved urine output is improving at this time. Although unfortunately lost the IV line may need a central line for IV antibiotics.the initial plan was admitted to establish vascular access were temporary hemodialysis although doesn't want hemodialysis patient actually doesn't require that at this time emergently. was back and forth regarding hospice although patient can make her own decision. Plan is to continue with antibiotics for now Constitutional: No fever Cardio vascular: denied any chest pain, palpitations Gastrointestinal denied any nausea vomiting Pulmonary: Denied any shortness of breath cough Neurologic denied any new focal deficits All inpatient medications were reviewed and appropriate changes in these medicat ions as dictated in the interval history and assessment and plan. Objective - Vital Signs Vital signs: Vital Signs Temp 97.4 F L 06/21/20 08:00 Pulse 80 06/21/20 12:10 Resp 18 06/21/20 12:10 BP 109/64 06/21/20 12:10 Pulse Ox 96 06/21/20 12:10 Intake & Output 06/20/20 06/21/20 06/21/20 18:59 06:59 18:59 Intake Total 100 900 Output Total 245 Balance -145 900 Weight 70.5 kg 72.2 kg Intake: Oral 100 900 Output: Urine 245 Other: Voiding Method Indwelling Catheter Indwelling Catheter # Voids 0 - Exam PHYSICAL EXAMINATION: GENERAL: The patient is alert and oriented x3, not in any acute distress. Well developed, well nourished. HEENT: Pupils are round and equally reacting to light. EOMI. No scleral icterus. No conjunctival pallor. Normocephalic, atraumatic. No pharyngeal erythema. No thyromegaly. CARDIOVASCULAR: S1 and S2 present. No murmurs, rubs, or gallops. PULMONARY: Chest is clear to auscultation, no wheezing or crackles. ABDOMEN: Soft, nontender, nondistended, normoactive bowel sounds. No palpable o rganomegaly. MUSCULOSKELETAL: No joint swelling or deformity. EXTREMITIES: No cyanosis, clubbing, or pedal edema. NEUROLOGICAL: Gross neurological examination did not reveal any focal deficits. SKIN: Patient has extensive cellulitis and skin necrosis of both legs extending up to both knees. Patient to both legs are wrapped with gauze. I didn't examine her legs today but as per infectious disease there is some improvement. - Labs CBC & Chem 7: 06/20/20 08:15 06/20/20 14:28 Labs: Abnormal Lab Results - Last 24 Hours (Table) 06/20/20 06/21/20 Range/Units 08:15 06:21 POC Glucose (mg/dL) 73 L (75-99) mg/dL Hep Bs Antibody Equivocal A (Non-Reactive) Assessment and Plan Plan: Severe sepsis or septic shock: Cellulitis with with skin necrosis patient had a CT of both lower extremities which did not show any abscess and there is no mention of necrotizing fasciitis either. Patient will becontinued on Zosyn. Patient has enterococcus and Enterobacter cloaca a on the wound cultures Infectious disease and vascular surgery evaluated the patient. patient the continues to be on bicarbonate drip. -Shock liver liver enzymes will be monitored and the elevated liver enzymes secondary to sepsisimproving -Acute renal failure possibly acute tubular necrosis from severe sepsis , he is to have a improved urine output and creatinine is marginally betterremainder not need hemodialysis at least emergently right now. -Severe hyperkalemia secondary to metabolic acidosis , rest seem improved. -Hyponatremia: Hypovolemic hyponatremia. Sodium remains at 127 -Severe metabolic acidosis: Secondary to acute renal failure now. Patient was started on a bicarbonate drip -Hypoglycemia -Leukocytosis: DVT prophylaxis Olding of subcutaneous heparin because of thrombocytopenia- heated antibodies negative
[2020-06-21 17:13] LABS: Glucose,Whole Blood 80 mg/dL (75-99)
[2020-06-21 20:47] LABS: Glucose,Whole Blood 87 mg/dL (75-99)
--- NOTE | 2020-06-21 22:14 | PN ---
PROGRESS NOTE DATE OF SERVICE: 06/21/2020. REASON FOR FOLLOWUP: Bilateral lower extremity wound and cellulitis. INTERVAL HISTORY: Patient is currently afebrile. The patient is breathing comfortably. Denies any chest pain, nausea or vomiting. Complaining of pain to the leg, but no worsening. PHYSICAL EXAMINATION: Blood pressure 128/96, pulse of 74, temperature 96. She is 95% on room air. GENERAL DESCRIPTION: An elderly female lying in bed in no distress. RESPIRATORY SYSTEM: Unlabored breathing, clear to auscultation anteriorly. HEART: S1, S2. Regular rate and rhythm. EXTREMITIES: Wrapped in dressing. No drainage on the dressing. LABS: No new labs have been obtained today. DIAGNOSTIC IMPRESSION AND PLAN: Patient with bilateral lower extremity wound with secondary cellulitis culture with Enterobacter, Enterococcus faecalis. Patient is currently covered with Zosyn. Local care to continue per Surgery and monitor clinical course closely. MMODL / IJN: [id number] /
[2020-06-22] MEDS: HYDROcodone/APAP 5-325MG 1 EACH TAB PO PRN ×3 (05:33→20:29)
[2020-06-22] MEDS: PIPERACILLIN-TAZOBACTAM 3.375 GM in SODIUM CHLORIDE 0.9% 100 ML IVPB SCH ×2 (06:12→18:03)
[2020-06-22 06:22] LABS: Glucose,Whole Blood 85 mg/dL (75-99)
[2020-06-22 08:53] LABS: Calcium 6.7 mg/dL (8.4-10.2); Potassium 5.1 mmol/L (3.5-5.1)
--- NOTE | 2020-06-22 09:01 | P.PN ---
Subjective Progress Note Date: 06/22/20 Principal diagnosis: This is 75-year-old female followed up for severe acute kidney injury. Etiology is sepsis from bilateral leg ischemia and cellulitis. She is known with bypass of her legs with stent and history of hypertension and not known to be diabetic Her renal function continued to deteriorate. Additionally she has severe non-gap metabolic acidosis from acute kidney injury. She is currently on sodium bicarb drip. Initially there was some confusion regarding dialysis are not from patient and her . It has been decided now that all aggressive measures will be continued except surgery and her leg or dialysis. There has been some confusion regarding her level of care. Initially there was thoughts of hospice but then the patient's changes mind and wanted full care. Dialysis was therefore not recommended but on the insistence of the is being proceeded with. A permacath or AV axis surgery is scheduled today and is pending. Patient states she is not feeling well tired and sick. He is in pain in her legs Denies any nausea vomiting diarrhea she has poor appetite. No abdominal pain. Objective - Vital Signs Vital signs: Vital Signs Temp 97.8 F 06/22/20 04:00 Pulse 78 06/22/20 08:00 Resp 12 06/22/20 08:00 BP 126/75 06/22/20 08:00 Pulse Ox 95 06/22/20 08:00 Intake & Output 06/21/20 06/22/20 06/22/20 18:59 06:59 18:59 Intake Total 125 0 Output Total 600 Balance -475 0 Weight 67.5 kg Intake: Oral 125 0 Output: Urine 600 Other: Voiding Method Indwelling Catheter Indwelling Catheter Examination she looks pale and somewhat L HEENT exam no JVP neck is supple no facial asymmetry Lungs are clear to auscultation fair air entry bilaterally Heart sounds unremarkable for any murmur rub gallop Abdomen soft nontender slightly distended Extremity exam was bilateral dressings on her legs. Neurologically awake alert oriented no asterixis - Labs CBC & Chem 7: 06/20/20 08:15 06/20/20 14:28 Assessment and Plan Assessment: Impression 1. Acute kidney injury from septic syndrome. Oliguric with creatinine going up, from 3.34 on 06/14/2022 4.57 on 02/16/2020, results from today are pending. 2. Previous creatinines available are from 2017 creatinine was 0.8. 3. Admitted with generalized weakness cellulitis and ischemic legs bilaterally with past history of stents in her legs 4. Hypo-natremia secondary to acute kidney injury sodium is 128 stable 5. Significant non-gap acidosis with bicarb 12 and gap 13. Labs are from 06/18/2020 results from today pending 6. Hyperkalemia secondary acute kidney injury. Last potassium is 5.7 on 06/18/2020 7. Hemoglobin is 10.6 anemia off chronic illness Recommendation 1. Will maintain current medications 2. Continue IV bicarbonate drip 150 mEq in D5W in a liter at 80 mL an hour 3. Will will avoid dialysis per patient's request
[2020-06-22] MEDS: FAMOTIDINE 20 MG TAB PO SCH (09:03)
[2020-06-22 12:18] LABS: Glucose,Whole Blood 104 mg/dL (75-99)
[2020-06-22] MEDS: SODIUM CHLORIDE 0.45% 1,000 ML with SODIUM BICARB (1 MEQ/ML) 150 ML IV SCH ×2 (12:21)
--- NOTE | 2020-06-22 13:03 | P.PN ---
Subjective 75-year-old womanbrought by ambulance to have evaluation for generalized weakness. The patient states had phoned EMS tonightafter she had s lumped to the ground and not been able to get up due to generalized weakness. The patient does note that over the past few days to a little over a week or so,she has been having worsening of bilateral leg pain, which she describes as burning and aching. The pain is worse if she touches her legs or with movements. She has noted that there has been weeping from ulcerations going back longer than that. Patient has not noted fever or chills. No chest pain or dyspnea. No cough. She is found to be severely septic with bilateral extensive cellulitis and with gangrene patient has is discoloration of both legs going on for about 2 months. Had gangrenous changes extend up to both knees. Patient has highly elevated liver blood cell count of 22,000 patient was started on vancomycin and Zosyn. Patient has significant other provided abnormalities including highly elevated potassium of 6.4 low sodium. Severe metabolic acidosis. Highly elevated lactic acid of around 8.4 patient has borderline blood pressure received multiple boluses of IV fluids patient will be started on 125 mL of normal saline. Patient has elevated liver enzymes secondary to shock liver. Chest x-ray mild perihilar infiltrate. Patient lives with her at home. 06/15/2020 patient was evaluated by vascular surgery and infectious disease patient was started on daptomycin, due to nephrotoxicity of vancomycin patient to histamine Zosyn. Patient has a skin necrosis significant. Vascular surgery does not be lieve debridement is a possibility the other possibility being below knee or bony amputations which are patient doesn't want. Without surgical intervention it's hard to address patient's sepsis because of which had a lengthy discussion along with vascular surgeon with as well as the patient patient and later decided she wanted to be hospice. But she wanted to be continued on antibiotics which will be continued patient is presently on D5 with bicarbonate which will also be continued. 06/16/2020 Discussed with her as well. Plan is to not to pursue hospice at this time continue with antibiotics. If needed patient will undergo superficial debridement. We will order labs for tomorrow no labs are available from today. Patient the will be continued on daptomycin and Zosyn. Patient does have urine output. Patient won't cultures are showing gram-negative bacilli and enterococcus. 06/17/2020 Patient has enterococcus faecalis and Enterobacter cloaca, patient remains on daptomycin and Zosyn which will be continued. I'll leave the decision of antibiotics and infectious disease. Patient urine output is marginal and creatinine continued to go up. 06/18/2020 Patient is being continued on Zosyn at this time. Daptomycin was discontinued. Her record today morning labs are still pending patient will be continued on 100 mL of normal saline. 06/19/2020 Patient was started on bicarb drip because of severe metabolic acidosis. Patient is presently on Zosyn which is being continued. Patient creatinine continued to go up a bit. Patient is hypokalemic secondary to acute renal failure and acidosis for which I ordered kayexalate. Serum sodium remains at 12 7. 06/20/2020 Patient continues to have metabolic acidosis patient is on IV bicarbonate patient continues to have hyperkalemia. No significant improvement in her electrolytes. Patient urine output is still low. Patient can use to be on IV antibiotics we'll continue with IV antibiotics until Tuesday further plan and decisions depending on her improvement till then. 06/21/2020 believe patient may need the 80s temporary hemodialysis because of persistent hyperkalemia although her hyperkalemia improved patient kidney function marginally improved urine output is improving at this time. Although unfortunately lost the IV line may need a central line for IV antibiotics.the initial plan was admitted to establish vascular access were temporary hemodialysis although doesn't want hemodialysis patient actually doesn't require that at this time emergently. was back and forth regarding hospice although patient can make her own decision. Plan is to continue with antibiotics for now. 06/22/2020 Sodium improved to 128 creatinine continued to get worse-patient the confusion was better as per the nursing staff although do not believe patient is that much confused anyway. today remains oliguric and his creatinine went up to around 5.7 Constitutional: No fever Cardio vascular: denied any chest pain, palpitations Gastrointestinal denied any nausea vomiting Pulmonary: Denied any shortness of breath cough Neurologic denied any new focal deficits All inpatient medications were reviewed and appropriate changes in these medications as dictated in the interval history and assessment and plan. Objective - Vital Signs Vital signs: Vital Signs Temp 97.8 F 06/22/20 04:00 Pulse 78 06/22/20 08:00 Resp 12 06/22/20 08:00 BP 126/75 06/22/20 08:00 Pulse Ox 95 06/22/20 08:00 Intake & Output 06/21/20 06/22/20 06/22/20 18:59 06:59 18:59 Intake Total 125 0 Output Total 600 Balance -475 0 Weight 67.5 kg Intake: Oral 125 0 Output: Urine 600 Other: Voiding Method Indwelling Catheter Indwelling Catheter - Exam PHYSICAL EXAMINATION: GENERAL: The patient is alert and oriented x3, not in any acute distress. Well developed, well nourished. HEENT: Pupils are round and equally reacting to light. EOMI. No scleral icterus. No conjunctival pallor. Normocephalic, atraumatic. No pharyngeal erythema. No thyromegaly. CARDIOVASCULAR: S1 and S2 present. No murmurs, rubs, or gallops. PULMONARY: Chest is clear to auscultation, no wheezing or crackles. ABDOMEN: Soft, nontender, nondistended, normoactive bowel sounds. No palpable organomegaly. MUSCULOSKELETAL: No joint swelling or deformity. EXTREMITIES: No cyanosis, clubbing, or pedal edema. NEUROLOGICAL: Gross neurological examination did not reveal any focal deficits. SKIN: Patient has extensive cellulitis and skin necrosis of both legs extending up to both knees. Patient to both legs are wrapped with gauze. I didn't examine her legs today but as per infectious disease there is some improvement. - Labs CBC & Chem 7: 06/20/20 08:15 06/22/20 08:10 Labs: Abnormal Lab Results - Last 24 Hours (Table) 06/22/20 06/22/20 Range/Units 08:10 12:14 Sodium 128 L (137-145) mmol/L Carbon Dioxide 17 L (22-30) mmol/L BUN 90 H (7-17) mg/dL Creatinine 5.14 H (0.52-1.04) mg/dL POC Glucose (mg/dL) 104 H (75-99) mg/dL Calcium 6.7 L (8.4-10.2) mg/dL Assessment and Plan Plan: Severe sepsis or septic shock: Cellulitis with with skin necrosis patient had a CT of both lower extremities which did not show any abscess and there is no mention of necrotizing fasciitis either. Patient will becontinued on Zosyn. Patient has enterococcus and Enterobacter cloaca a on the wound cultures Inf ectious disease and vascular surgery evaluated the patient. patient the continues to be on bicarbonate drip. -Shock liver liver enzymes will be monitored and the elevated liver enzymes secondary to sepsisimproving -Acute renal failure possibly acute tubular necrosis from severe sepsis , he is to have a improved urine output and creatinine is marginally betterremainder not need hemodialysis at least emergently right now. -Severe hyperkalemia secondary to metabolic acidosis , rest seem improved. -Hyponatremia: Hypovolemic hyponatremia. Sodium remains at 127 -Severe metabolic acidosis: Secondary to acute renal failure now. Patient was started on a bicarbonate drip -Hypoglycemia -Leukocytosis: DVT prophylaxis Olding of subcutaneous heparin because of thrombocytopenia- heated antibodies negative
[2020-06-22 17:29] LABS: Glucose,Whole Blood 94 mg/dL (75-99)
[2020-06-22 20:50] LABS: Glucose,Whole Blood 92 mg/dL (75-99)
--- NOTE | 2020-06-23 03:07 | PN ---
PROGRESS NOTE DATE OF SERVICE: 06/22/2020 REASON FOR FOLLOWUP: Bilateral lower extremity venous stasis ulcer and cellulitis. INTERVAL HISTORY: The patient is currently afebrile. Patient is breathing comfortably. Has been complaining of pain to the leg. No chest pain. No abdominal pain or diarrhea. PHYSICAL EXAMINATION: Blood pressure is 102/63 with a pulse of 77, temperature 96. She is 95% on room air. General description is an elderly female lying in bed in no distress. RESPIRATORY SYSTEM: Unlabored breathing, clear to auscultation anteriorly. HEART: S1, S2. Regular rate and rhythm. ABDOMEN: Soft, no tenderness. Right lower extremity is currently dressed up, no obvious drainage on the dressing. LABS: No CBC was done today, but she did have worsening of the kidney function with creatinine 5.14. DIAGNOSTIC IMPRESSION AND PLAN: Patient with bilateral lower extremity venous stasis ulcer with secondary cellulitis, right greater than left. Culture with Enterococcus faecalis, Enterobacter. Patient is covered with Zosyn to continue. Local wound care as per Vascular Surgery and monitor clinical course closely. Overall prognosis remains to be guarded. MMODL / IJN: [id number] /
[2020-06-23 06:21] LABS: Glucose,Whole Blood 59 mg/dL (75-99)
[2020-06-23 06:41] LABS: Glucose,Whole Blood 91 mg/dL (75-99)
[2020-06-23] MEDS: MIDODRINE 5 MG TAB PO SCH ×3 (06:53→17:15)
[2020-06-23] MEDS: SODIUM CHLORIDE 0.45% 1,000 ML with SODIUM BICARB (1 MEQ/ML) 150 ML IV SCH ×6 (06:54→20:36)
[2020-06-23] MEDS: PIPERACILLIN-TAZOBACTAM 3.375 GM in SODIUM CHLORIDE 0.9% 100 ML IVPB SCH ×2 (07:34→21:17)
[2020-06-23 09:01] LABS: Calcium 6.5 mg/dL (8.4-10.2); Potassium 4.8 mmol/L (3.5-5.1)
[2020-06-23 11:57] LABS: Glucose,Whole Blood 82 mg/dL (75-99)
[2020-06-23] MEDS: FAMOTIDINE 20 MG TAB PO SCH (12:15)
--- NOTE | 2020-06-23 13:23 | P.CONS ---
History of Present Illness - Reason for Consult Consult date: 06/23/20 wound care - History of Present Illness this is a 75-year-old patient being seen by the wound care center on for nonhealing ulcerations to bilateral lower extremities and upper extremities. patient refused to have dressings removed. The assessment was completed via photos taken upon arrival. Patient has multiple ulcerations on his bilateral lower extremities with ecchymosis, edema, sloughing noted. Ulcerations range from fat layer exposure to Limited to skin breakdown. ulcerations has moderate slough noted and minimal granulation seen throughout the wound beds. bilateral upper extremity ulcerations appear to be related to skin tears. In the Limited to skin breakdown. patient's past medical history significant for hypertension, vascular saw her, bleeding ulcer, left leg bypass with stenting to the groin, Review of Systems Review Of Systems: Constitutional: No fever, no chills, no night sweats. No weight change. No weakness, fatigue or lethargy. No daytime sleepiness. Integumentary:reports wounds, no lesions. No rash or pruritus. No unusual bruising. No change in hair or nails. Past Medical History Past Medical History: GERD/Reflux, Hypertension, Vascular Disorder Additional Past Medical History / Comment(s): hx bleeding ulcer. wound left foot. lt leg swelling since bypass. loud ringing in ears History of Any Multi-Drug Resistant Organisms: None Reported Past Surgical History: Joint Replacement Additional Past Surgical History / Comment(s): lt leg bypass x3 with stent in groin, lt hip replacement, rt foot with hardware Past Anesthesia/Blood Transfusion Reactions: Previous Problems w/ Anesthesia Additional Past Anesthesia/Blood Transfusion Reaction / Comm: after foot surgery developed loud ringing in ears which continues Past Psychological History: No Psychological Hx Reported Past Alcohol Use History: Daily Past Drug Use History: None Reported - Past Family History Mother Family Medical History: Unable to Obtain Medications and Allergies Home Medications Medication Instructions Recorded Confirmed Type Ferrous Sulfate [Feosol] 325 mg PO DAILY 07/19/19 06/14/20 History amLODIPine [Norvasc] 5 mg PO DAILY 07/19/19 06/14/20 History Furosemide [Lasix] 20 mg PO DAILY 06/14/20 06/14/20 History Vit C/E/Zn/Coppr/Lutein/Zeaxan 2 cap PO DAILY 06/14/20 06/14/20 History [Preservision Areds 2 Softgel] Allergies Allergy/AdvReac Type Severity Reaction Status Date / Time adhesive Allergy skin Verified 06/14/20 09:20 breaks down Physical Exam Vitals: Vital Signs Temp Pulse Resp BP Pulse Ox 06/23/20 09:45 97.3 F L 82 18 99/63 95 06/23/20 04:00 98.1 F 99 16 80/52 96 06/23/20 02:05 97.2 F L 06/23/20 00:00 96.6 F L 84 16 90/52 97 06/22/20 23:13 96.3 F L 06/22/20 22:14 95.5 F L 06/22/20 20:00 95.1 F L 67 15 105/74 96 06/22/20 19:36 94.5 F L 06/22/20 16:50 93.8 F L 78 16 102/63 95 Intake and Output 06/22/20 06/23/20 06/23/20 22:59 06:59 14:59 Intake Total 150 500 600 Output Total 150 0 30 Balance 0 500 570 Intake: Intake, IV Titration 500 Amount Piperacillin-Tazobactam 3 100 .375 gm In Sodium Chloride 0.9% 100 ml @ 25 mls/hr IVPB Q12H [facility] Rx# :[id number] Sodium Chloride 0.45% 1, 400 000 ml @ 80 mls/hr IV . [id number] [facility] with Sodium Bicarb (1 Meq/ml) 150 ml Rx#:[id number] Oral 150 0 600 Output: Urine 150 0 30 Other: Voiding Method Indwelling Catheter Indwelling Catheter Indwelling Catheter # Bowel Movements 1 Weight 67 kg Physical exam: General Appearance: Alert, cooperative, no distress, appears stated age. Skin: See HPI all other Skin color, texture, tugor normal, no rashes or lesions. Neurologic: Alert oriented x3 Results CBC & Chem 7: 06/20/20 08:15 06/23/20 07:37 Labs: Abnormal Lab Results - Last 24 Hours (Table) 06/23/20 06/23/20 Range/Units 06:20 07:37 Sodium 128 L (137-145) mmol/L Chloride 95 L (98-107) mmol/L Carbon Dioxide 17 L (22-30) mmol/L BUN 93 H (7-17) mg/dL Creatinine 5.35 H (0.52-1.04) mg/dL POC Glucose (mg/dL) 59 L (75-99) mg/dL Calcium 6.5 L (8.4-10.2) mg/dL Assessment and Plan (1) Atherosclerosis of [place] arteries of left leg with ulceration of other part of lower leg Current Visit: Yes Status: Acute Code(s): I70.248 - ATHSCL WAINWRIGHT ART OF LEFT LEG WITH ULCER OTH PRT LOW LEG SNOMED Code(s): 950875915 (2) Atherosclerosis of [place] arteries of left leg with ulceration of thigh Current Visit: Yes Status: Acute Code(s): I70.241 - ATHSCL WAINWRIGHT ARTERIES OF LEFT LEG W ULCERATION OF THIGH SNOMED Code(s): 408364991 (3) Atherosclerosis of [place] arteries of right leg with ulceration of calf Current Visit: Yes Status: Acute Code(s): I70.232 - ATHSCL WAINWRIGHT ARTERIES OF RIGHT LEG W ULCERATION OF CALF SNOMED Code(s): 083270293 Plan: apply absorptive silver, saline moistened gauze, dry gauze rolled gauze and secure with paper tape to bilateral lower extremity. Apply zinc barrier cream and secure with rolled gauze as needed to the upper ulceration skin tears. thank you for the consultation any questions please contact the wound care center DNP note has been reviewed and discussed with Dr. Garcia and the impression and plan of care has been directed as dictated.
--- NOTE | 2020-06-23 13:24 | P.PN ---
Subjective 75-year-old womanbrought by ambulance to have evaluation for generalized weakness. The patient states had phoned EMS tonightafter she had s lumped to the ground and not been able to get up due to generalized weakness. The patient does note that over the past few days to a little over a week or so,she has been having worsening of bilateral leg pain, which she describes as burning and aching. The pain is worse if she touches her legs or with movements. She has noted that there has been weeping from ulcerations going back longer than that. Patient has not noted fever or chills. No chest pain or dyspnea. No cough. She is found to be severely septic with bilateral extensive cellulitis and with gangrene patient has is discoloration of both legs going on for about 2 months. Had gangrenous changes extend up to both knees. Patient has highly elevated liver blood cell count of 22,000 patient was started on vancomycin and Zosyn. Patient has significant other provided abnormalities including highly elevated potassium of 6.4 low sodium. Severe metabolic acidosis. Highly elevated lactic acid of around 8.4 patient has borderline blood pressure received multiple boluses of IV fluids patient will be started on 125 mL of normal saline. Patient has elevated liver enzymes secondary to shock liver. Chest x-ray mild perihilar infiltrate. Patient lives with her at home. 06/15/2020 patient was evaluated by vascular surgery and infectious disease patient was started on daptomycin, due to nephrotoxicity of vancomycin patient to histamine Zosyn. Patient has a skin necrosis significant. Vascular surgery does not be lieve debridement is a possibility the other possibility being below knee or bony amputations which are patient doesn't want. Without surgical intervention it's hard to address patient's sepsis because of which had a lengthy discussion along with vascular surgeon with as well as the patient patient and later decided she wanted to be hospice. But she wanted to be continued on antibiotics which will be continued patient is presently on D5 with bicarbonate which will also be continued. 06/16/2020 Discussed with her as well. Plan is to not to pursue hospice at this time continue with antibiotics. If needed patient will undergo superficial debridement. We will order labs for tomorrow no labs are available from today. Patient the will be continued on daptomycin and Zosyn. Patient does have urine output. Patient won't cultures are showing gram-negative bacilli and enterococcus. 06/17/2020 Patient has enterococcus faecalis and Enterobacter cloaca, patient remains on daptomycin and Zosyn which will be continued. I'll leave the decision of antibiotics and infectious disease. Patient urine output is marginal and creatinine continued to go up. 06/18/2020 Patient is being continued on Zosyn at this time. Daptomycin was discontinued. Her record today morning labs are still pending patient will be continued on 100 mL of normal saline. 06/19/2020 Patient was started on bicarb drip because of severe metabolic acidosis. Patient is presently on Zosyn which is being continued. Patient creatinine continued to go up a bit. Patient is hypokalemic secondary to acute renal failure and acidosis for which I ordered kayexalate. Serum sodium remains at 12 7. 06/20/2020 Patient continues to have metabolic acidosis patient is on IV bicarbonate patient continues to have hyperkalemia. No significant improvement in her electrolytes. Patient urine output is still low. Patient can use to be on IV antibiotics we'll continue with IV antibiotics until Tuesday further plan and decisions depending on her improvement till then. 06/21/2020 believe patient may need the 80s temporary hemodialysis because of persistent hyperkalemia although her hyperkalemia improved patient kidney function marginally improved urine output is improving at this time. Although unfortunately lost the IV line may need a central line for IV antibiotics.the initial plan was admitted to establish vascular access were temporary hemodialysis although doesn't want hemodialysis patient actually doesn't require that at this time emergently. was back and forth regarding hospice although patient can make her own decision. Plan is to continue with antibiotics for now. 06/22/2020 Sodium improved to 128 creatinine continued to get worse-patient the confusion was better as per the nursing staff although do not believe patient is that much confused anyway. today remains oliguric and his creatinine went up to around 5.7 06/23/2020 Patient's creatinine continued to get worse and the patient the urine output is still low. Constitutional: No fever Cardio vascular: denied any chest pain, palpitations Gastrointestinal denied any nausea vomiting Pulmonary: Denied any shortness of breath cough Neurologic denied any new focal deficits All inpatient medications were reviewed and appropriate changes in these medications as dictated in the interval history and assessment and plan. Objective - Vital Signs Vital signs: Vital Signs Temp 97.3 F L 06/23/20 09:45 Pulse 82 06/23/20 09:45 Resp 18 06/23/20 09:45 BP 99/63 06/23/20 09:45 Pulse Ox 95 06/23/20 09:45 Intake & Output 06/22/20 06/23/20 06/23/20 18:59 06:59 18:59 Intake Total 275 500 600 Output Total 250 0 30 Balance 25 500 570 Weight 67 kg Intake: Intake, IV Titration 500 Amount Piperacillin-Tazobactam 3 100 .375 gm In Sodium Chloride 0.9% 100 ml @ 25 mls/hr IVPB Q12H [facility] Rx# :[id number] Sodium Chloride 0.45% 1, 400 000 ml @ 80 mls/hr IV . [id number] [facility] with Sodium Bicarb (1 Meq/ml) 150 ml Rx#:[id number] Oral 275 0 600 Output: Urine 250 0 30 Other: Voiding Method Indwelling Catheter Indwelling Catheter Indwelling Catheter # Bowel Movements 1 - Exam PHYSICAL EXAMINATION: GENERAL: The patient is alert and oriented x3, not in any acute distress. Well developed, well nourished. HEENT: Pupils are round and equally reacting to light. EOMI. No scleral icterus. No conjunctival pallor. Normocephalic, atraumatic. No pharyngeal erythema. No thyromegaly. CARDIOVASCULAR: S1 and S2 present. No murmurs, rubs, or gallops. PULMONARY: Chest is clear to auscultation, no wheezing or crackles. ABDOMEN: Soft, nontender, nondistended, normoactive bowel sounds. No palpable organomegaly. MUSCULOSKELETAL: No joint swelling or deformity. EXTREMITIES: No cyanosis, clubbing, or pedal edema. NEUROLOGICAL: Gross neurological examination did not reveal any focal deficits. SKIN: Patient has extensive cellulitis and skin necrosis of both legs extending up to both knees. Patient to both legs are wrapped with gauze. I didn't examin e her legs today but as per infectious disease there is some improvement. - Labs CBC & Chem 7: 06/20/20 08:15 06/23/20 07:37 Labs: Abnormal Lab Results - Last 24 Hours (Table) 06/23/20 06/23/20 Range/Units 06:20 07:37 Sodium 128 L (137-145) mmol/L Chloride 95 L (98-107) mmol/L Carbon Dioxide 17 L (22-30) mmol/L BUN 93 H (7-17) mg/dL Creatinine 5.35 H (0.52-1.04) mg/dL POC Glucose (mg/dL) 59 L (75-99) mg/dL Calcium 6.5 L (8.4-10.2) mg/dL Assessment and Plan Plan: Severe sepsis or septic shock: Cellulitis with with skin necrosis patient had a CT of both lower extremities which did not show any abscess and there is no mention of necrotizing fasciitis either. Patient will becontinued on Zosyn. Patient has enterococcus and Enterobacter cloaca a on the wound cultures Infectious disease and vascular surgery evaluated the patient. patient the continues to be on bicarbonate drip. -Shock liver liver enzymes will be monitored and the elevated liver enzymes secondary to sepsis. -Acute renal failure possibly acute tubular necrosis from severe sepsis , he is to have a improved urine output and creatinine is marginally betterremainder not need hemodialysis at least emergently right now. -Severe hyperkalemia secondary to metabolic acidosis , rest seem improved. -Hyponatremia: Hypovolemic hyponatremia. Sodium remains at 127 -Severe metabolic acidosis: Secondary to acute renal failure now. Patient was started on a bicarbonate drip -Hypoglycemia -Leukocytosis: DVT prophylaxis Olding of subcutaneous heparin because of thrombocytopenia- heated antibodies negative
--- NOTE | 2020-06-23 15:22 | P.PN ---
Subjective Patient is seen in follow-up for acute kidney injury. Patient's creatinine and September 2016 was 0.8. This admission was 3.3 and is up to 5.35 today. Patient is oliguric per the nurse. She is quite lethargic. Oral intake is poor. She continues to refuse renal placement therapy. Vital signs: Blood pressure on the lower side. General: The patient appeared well nourished and normally developed. HEENT: Head exam is unremarkable. Neck is without jugular venous distension. LUNGS: Breath sounds decreased. HEART: Rate and Rhythm are regular. ABDOMEN: Soft, nontender. EXTREMITITES: Lower extremities wrapped. Tender to touch. Ischemic changes noted. 2+ edema. Objective - Vital Signs Vital signs: Vital Signs Temp 97.3 F L 06/23/20 11:40 Pulse 86 06/23/20 11:40 Resp 16 06/23/20 11:40 BP 91/57 06/23/20 11:40 Pulse Ox 96 06/23/20 11:40 Intake & Output 06/22/20 06/23/20 06/23/20 18:59 06:59 18:59 Intake Total 275 500 600 Output Total 250 0 30 Balance 25 500 570 Weight 67 kg Intake: Intake, IV Titration 500 Amount Piperacillin-Tazobactam 3 100 .375 gm In Sodium Chloride 0.9% 100 ml @ 25 mls/hr IVPB Q12H [facility] Rx# :[id number] Sodium Chloride 0.45% 1, 400 000 ml @ 80 mls/hr IV . [id number] [facility] with Sodium Bicarb (1 Meq/ml) 150 ml Rx#:[id number] Oral 275 0 600 Output: Urine 250 0 30 Other: Voiding Method Indwelling Catheter Indwelling Catheter Indwelling Catheter # Bowel Movements 1 - Labs CBC & Chem 7: 06/20/20 08:15 06/23/20 07:37 Labs: Abnormal Lab Results - Last 24 Hours (Table) 06/23/20 06/23/20 Range/Units 06:20 07:37 Sodium 128 L (137-145) mmol/L Chloride 95 L (98-107) mmol/L Carbon Dioxide 17 L (22-30) mmol/L BUN 93 H (7-17) mg/dL Creatinine 5.35 H (0.52-1.04) mg/dL POC Glucose (mg/dL) 59 L (75-99) mg/dL Calcium 6.5 L (8.4-10.2) mg/dL Assessment and Plan Plan: Assessment: 1. Acute kidney injury secondary to septic ATN. Oliguric. Renal function continues to worsen. Creatinine 5.35 today. Creatinine in September 2016 was 0.8. 2. Lower extremity cellulitis and ischemia with history of stents. 3. Hypervolemic hyponatremia. 4. Metabolic acidosis secondary to acute kidney injury maintained on bicarb drip. 5. Hyperkalemia secondary to acute kidney injury and metabolic acidosis. Better. Plan: Maintain bicarb drip. Add oral bicarb. Maintain midodrine. Check a.m. cortisol level. Check phosphorus level. Patient continues to refuse renal replacement therapy. Per the nurse this has also been discussed with the family. Overall prognosis poor. Comfort measures being considered.
--- NOTE | 2020-06-23 15:47 | P.PCN ---
Description of Procedure: 75-year-old white female, patient has been admitted with multiple medical problems renal failure, venous stasis ulcer with skin necrosis involving the epidermis of both lower extremity and dorsal suspect of the foot patient has superficial wound right leg medial lateral aspect of the leg and also her right leg involving the foot and the medial aspect of the lower leg base of the wound is clean some serous drainage noted Plan is we will use X a silver for the superficial wound on the both leg at this point patient does not need any major debridement we will continue with Aquacel silver change dressing every foot T8 hours and IV antibiotic
[2020-06-23 17:13] LABS: Glucose,Whole Blood 68 mg/dL (75-99)
[2020-06-23] MEDS: HYDROcodone/APAP 5-325MG 1 EACH TAB PO PRN (17:14)
[2020-06-23 17:21] LABS: Glucose,Whole Blood 80 mg/dL (75-99)
[2020-06-23] MEDS: SODIUM BICARBONATE TAB 650 MG TAB PO SCH (20:35)
[2020-06-23 20:47] LABS: Glucose,Whole Blood 94 mg/dL (75-99)
--- NOTE | 2020-06-23 21:47 | PN ---
PROGRESS NOTE DATE OF SERVICE: 06/23/2020 REASON FOR FOLLOWUP: Bilateral lower extremity cellulitis and wound. INTERVAL HISTORY: The patient is currently afebrile. The patient is breathing comfortably. Denies having any chest pain, shortness of breath or cough. No abdominal pain or any diarrhea has been reported. The patient herself not a very good historian. PHYSICAL EXAMINATION: Blood pressure 107/66, pulse 84, temperature is 97.3. She is 94% on room air. General description is an elderly female lying in bed in no distress. Respiratory system: Unlabored breathing. Clear to auscultation anteriorly. Heart S1, S2. Regular rate and rhythm. Abdomen soft, no tenderness. Right leg is currently dressed up. No obvious drainage on the dressing. LABS: No CBC was done today. Creatinine 5.35. DIAGNOSTIC IMPRESSION AND PLAN: Patient with bilateral lower extremity cellulitis and wound, right greater than left. The wound culture positive for Enterococcus faecalis, Enterobacter, for which we will keep the patient on the Zosyn. Wound care has been consulted for local wound care and monitor clinical course closely. MMODL / IJN: [id number] /
[2020-06-24 06:11] LABS: Glucose,Whole Blood 86 mg/dL (75-99)
[2020-06-24] MEDS: HYDROcodone/APAP 5-325MG 1 EACH TAB PO PRN ×2 (06:31→10:25)
[2020-06-24] MEDS: MIDODRINE 5 MG TAB PO SCH ×2 (06:31→12:01)
[2020-06-24] MEDS: FAMOTIDINE 20 MG TAB PO SCH (10:24)
[2020-06-24] MEDS: SODIUM BICARBONATE TAB 650 MG TAB PO SCH (10:25)
[2020-06-24] MEDS ORDERED: MORPHINE SULFATE 2 MG/ML SYRINGE IVP STA (10:57)
[2020-06-24] MEDS: PIPERACILLIN-TAZOBACTAM 3.375 GM in SODIUM CHLORIDE 0.9% 100 ML IVPB SCH (10:58)
[2020-06-24 11:27] LABS: Albumin 1.9 g/dL (3.5-5.0); Calcium 6.5 mg/dL (8.4-10.2); Magnesium 1.8 mg/dL (1.6-2.3); Phosphorus 8.4 mg/dL (2.5-4.5); Potassium 5.2 mmol/L (3.5-5.1); Total Protein 5.5 g/dL (6.3-8.2)
[2020-06-24 11:30] VITALS: BP 82/55; PULSE 84; RESP 12
[2020-06-24] MEDS: SODIUM CHLORIDE 0.45% 1,000 ML with SODIUM BICARB (1 MEQ/ML) 150 ML IV SCH ×2 (11:42)
[2020-06-24 11:43] LABS: Glucose,Whole Blood 62 mg/dL (75-99)
[2020-06-24 11:58] LABS: Glucose,Whole Blood 64 mg/dL (75-99)
[2020-06-24] MEDS ORDERED: DEXTROSE 50% SYRINGE 50 ML IVP ONE (11:58)
[2020-06-24] MEDS: DEXTROSE 50% SYRINGE 50 ML IVP STA (12:01)
[2020-06-24 12:13] VITALS: TEMP 96.8
[2020-06-24 12:15] LABS: Glucose,Whole Blood 256 mg/dL (75-99)
--- NOTE | 2020-06-24 13:55 | P.PN ---
Subjective 75-year-old womanbrought by ambulance to have evaluation for generalized weakness. The patient states had phoned EMS tonightafter she had s lumped to the ground and not been able to get up due to generalized weakness. The patient does note that over the past few days to a little over a week or so,she has been having worsening of bilateral leg pain, which she describes as burning and aching. The pain is worse if she touches her legs or with movements. She has noted that there has been weeping from ulcerations going back longer than that. Patient has not noted fever or chills. No chest pain or dyspnea. No cough. She is found to be severely septic with bilateral extensive cellulitis and with gangrene patient has is discoloration of both legs going on for about 2 months. Had gangrenous changes extend up to both knees. Patient has highly elevated liver blood cell count of 22,000 patient was started on vancomycin and Zosyn. Patient has significant other provided abnormalities including highly elevated potassium of 6.4 low sodium. Severe metabolic acidosis. Highly elevated lactic acid of around 8.4 patient has borderline blood pressure received multiple boluses of IV fluids patient will be started on 125 mL of normal saline. Patient has elevated liver enzymes secondary to shock liver. Chest x-ray mild perihilar infiltrate. Patient lives with her at home. 06/15/2020 patient was evaluated by vascular surgery and infectious disease patient was started on daptomycin, due to nephrotoxicity of vancomycin patient to histamine Zosyn. Patient has a skin necrosis significant. Vascular surgery does not be lieve debridement is a possibility the other possibility being below knee or bony amputations which are patient doesn't want. Without surgical intervention it's hard to address patient's sepsis because of which had a lengthy discussion along with vascular surgeon with as well as the patient patient and later decided she wanted to be hospice. But she wanted to be continued on antibiotics which will be continued patient is presently on D5 with bicarbonate which will also be continued. 06/16/2020 Discussed with her as well. Plan is to not to pursue hospice at this time continue with antibiotics. If needed patient will undergo superficial debridement. We will order labs for tomorrow no labs are available from today. Patient the will be continued on daptomycin and Zosyn. Patient does have urine output. Patient won't cultures are showing gram-negative bacilli and enterococcus. 06/17/2020 Patient has enterococcus faecalis and Enterobacter cloaca, patient remains on daptomycin and Zosyn which will be continued. I'll leave the decision of antibiotics and infectious disease. Patient urine output is marginal and creatinine continued to go up. 06/18/2020 Patient is being continued on Zosyn at this time. Daptomycin was discontinued. Her record today morning labs are still pending patient will be continued on 100 mL of normal saline. 06/19/2020 Patient was started on bicarb drip because of severe metabolic acidosis. Patient is presently on Zosyn which is being continued. Patient creatinine continued to go up a bit. Patient is hypokalemic secondary to acute renal failure and acidosis for which I ordered kayexalate. Serum sodium remains at 12 7. 06/20/2020 Patient continues to have metabolic acidosis patient is on IV bicarbonate patient continues to have hyperkalemia. No significant improvement in her electrolytes. Patient urine output is still low. Patient can use to be on IV antibiotics we'll continue with IV antibiotics until Tuesday further plan and decisions depending on her improvement till then. 06/21/2020 believe patient may need the 80s temporary hemodialysis because of persistent hyperkalemia although her hyperkalemia improved patient kidney function marginally improved urine output is improving at this time. Although unfortunately lost the IV line may need a central line for IV antibiotics.the initial plan was admitted to establish vascular access were temporary hemodialysis although doesn't want hemodialysis patient actually doesn't require that at this time emergently. was back and forth regarding hospice although patient can make her own decision. Plan is to continue with antibiotics for now. 06/22/2020 Sodium improved to 128 creatinine continued to get worse-patient the confusion was better as per the nursing staff although do not believe patient is that much confused anyway. today remains oliguric and his creatinine went up to around 5.7 06/23/2020 Patient's creatinine continued to get worse and the patient the urine output is still low. 06/24/2020 Patient doesn't have any significant overall clinical improvement. Discussed with the . Kidney function continued to worse. The options are bilateral amputation and hemodialysis although family doesn't want to go that route and opted for hospice hospice will meet with the patient's patient. Patient mental status is altered, cannot make any decisions at this time. Patient is already hypotensive with initiation is a either morphine or Dilaudid for Comfort Will lead to hypotension. Patient probably will will be made inpatient hospice most probably. Review of systems: Unable to obtain. All inpatient medications were reviewed and appropriate changes in these medications as dictated in the interval history and assessment and plan. Objective - Vital Signs Vital signs: Vital Signs Temp 96.8 F L 06/24/20 12:13 Pulse 84 06/24/20 11:31 Resp 12 06/24/20 11:29 BP 82/55 06/24/20 11:29 Pulse Ox 94 L 06/24/20 11:29 Intake & Output 06/23/20 06/24/20 06/24/20 18:59 06:59 18:59 Intake Total 600 540 Output Total 60 50 Balance 540 490 Weight 72 kg Intake: Oral 600 540 Output: Urine 60 50 Other: Voiding Method Indwelling Catheter Indwelling Catheter Indwelling Catheter # Voids 0 # Bowel Movements 1 - Exam PHYSICAL EXAMINATION: GENERAL: The patient is drowsy confused, not in any acute distress. Well developed, well nourished. Diffuse anasarca HEENT: Pupils are round and equally reacting to light. EOMI. No scleral icterus. No conjunctival pallor. Normocephalic, atraumatic. No pharyngeal erythema. No thyromegaly. CARDIOVASCULAR: S1 and S2 present. No murmurs, rubs, or gallops. PULMONARY: Chest is clear to auscultation, no wheezing or crackles. ABDOMEN: Soft, nontender, nondistended, normoactive bowel sounds. No palpable organomegaly. MUSCULOSKELETAL: No joint swelling or deformity. EXTREMITIES: No cyanosis, clubbing, or pedal edema. NEUROLOGICAL: Unable to assess SKIN: Patient has extensive cellulitis and skin necrosis of both legs extending up to both knees. - Labs CBC & Chem 7: 06/20/20 08:15 06/24/20 10:31 Labs: Abnormal Lab Results - Last 24 Hours (Table) 06/23/20 06/24/20 06/24/20 Range/Units 16:54 10:31 11:42 Sodium 127 L (137-145) mmol/L Potassium 5.2 H (3.5-5.1) mmol/L Chloride 92 L (98-107) mmol/L Carbon Dioxide 20 L (22-30) mmol/L BUN 96 H (7-17) mg/dL Creatinine 5.38 H (0.52-1.04) mg/dL Glucose 47 L* (74-99) mg/dL POC Glucose (mg/dL) 68 L 62 L (75-99) mg/dL Calcium 6.5 L (8.4-10.2) mg/dL Phosphorus 8.4 H (2.5-4.5) mg/dL Total Bilirubin 6.0 H (0.2-1.3) mg/dL AST 133 H (14-36) U/L ALT 50 H (4-34) U/L Alkaline Phosphatase 269 H (38-126) U/L Total Protein 5.5 L (6.3-8.2) g/dL Albumin 1.9 L (3.5-5.0) g/dL 06/24/20 06/24/20 Range/Units 11:57 12:14 Sodium (137-145) mmol/L Potassium (3.5-5.1) mmol/L Chloride (98-107) mmol/L Carbon Dioxide (22-30) mmol/L BUN (7-17) mg/dL Creatinine (0.52-1.04) mg/dL Glucose (74-99) mg/dL POC Glucose (mg/dL) 64 L 256 H (75-99) mg/dL Calcium (8.4-10.2) mg/dL Phosphorus (2.5-4.5) mg/dL Total Bilirubin (0.2-1.3) mg/dL AST (14-36) U/L ALT (4-34) U/L Alkaline Phosphatase (38-126) U/L Total Protein (6.3-8.2) g/dL Albumin (3.5-5.0) g/dL Assessment and Plan Plan: Severe sepsis or septic shock: Cellulitis with with skin necrosis patient had a CT of both lower extremities which did not show any abscess and there is no mention of necrotizing fasciitis either. Patient was on Zosyn. Patient probably will fade hospice only comfort medications at this time -Shock liver liver enzymes will be monitored and the elevated liver enzymes secondary to sepsis. -Acute renal failure possibly acute tubular necrosis from severe sepsis , patient will need hemodialysis. -Severe hyperkalemia secondary to metabolic acidosis . -Hyponatremia her sodium remains at 127. Secondary to renal failure -Severe metabolic acidosis: Secondary to acute renal failure now. -Hypoglycemia -Leukocytosis: Patient will be transitioned to hospice, hospice is meeting with the family today
--- NOTE | 2020-06-24 13:56 | P.DS ---
Providers Date of admission: 06/14/20 05:34 Attending physician: Delfina Barrow Consults: 06/14/20 14:10 Consult Physician Urgent Consulting Provider: Benjie Jarrett Consult Reason/Comments: sepsis cellulitis Do you want consulting provider notified?: Yes 06/14/20 14:12 Consult Physician Urgent Consulting Provider: Joss Bueno Consult Reason/Comments: cellulitis Do you want consulting provider notified?: Yes 06/14/20 15:14 Consult Physician Routine Consulting Provider: Jaycee Reyes Consult Reason/Comments: Septic shock Do you want consulting provider notified?: Yes 06/14/20 15:21 Consult Physician Routine Consulting Provider: Salvador Beck Consult Reason/Comments: Acute tubular necrosis Do you want consulting provider notified?: Yes Primary care physician: Kelly Nesbitt [facility] Course: Hospice is medically the patient probably will be discharged on hospice today please refer to my progress note Patient Condition at Discharge: Critical Plan - Discharge Summary Discharge Rx Participant: No New Discharge Prescriptions: No Action amLODIPine [Norvasc] 5 mg PO DAILY Ferrous Sulfate [Feosol] 325 mg PO DAILY Vit C/E/Zn/Coppr/Lutein/Zeaxan [Preservision Areds 2 Softgel] 2 cap PO DAILY Furosemide [Lasix] 20 mg PO DAILY Discharge Medication List Ferrous Sulfate [Feosol] 325 mg PO DAILY 07/19/19 [History] amLODIPine [Norvasc] 5 mg PO DAILY 07/19/19 [History] Furosemide [Lasix] 20 mg PO DAILY 06/14/20 [History] Vit C/E/Zn/Coppr/Lutein/Zeaxan [Preservision Areds 2 Softgel] 2 cap PO DAILY 06/14/20 [History] Follow up Appointment(s)/Referral(s): Kelly Nesbitt MD [Primary Care Provider] - 1-2 days
--- NOTE | 2020-06-24 14:28 | P.PN ---
Subjective Patient is seen in follow-up for acute kidney injury. Patient's creatinine and September 2016 was 0.8. This admission was 3.3 and is up to 5.38 today. Patient is oliguric per the nurse. She is quite lethargic. Oral intake is poor. She isn't does not wish for any form of renal replacement therapy. Metabolic hospice this morning. Vital signs: Blood pressure on the lower side. General: The patient appeared well nourished and normally developed. HEENT: Head exam is unremarkable. Neck is without jugular venous distension. LUNGS: Breath sounds decreased. HEART: Rate and Rhythm are regular. ABDOMEN: Soft, nontender. EXTREMITITES: Lower extremities wrapped. Tender to touch. Ischemic changes noted. 2+ edema. Objective - Vital Signs Vital signs: Vital Signs Temp 96.8 F L 06/24/20 12:13 Pulse 84 06/24/20 11:31 Resp 12 06/24/20 11:29 BP 82/55 06/24/20 11:29 Pulse Ox 94 L 06/24/20 11:29 Intake & Output 06/23/20 06/24/20 06/24/20 18:59 06:59 18:59 Intake Total 600 540 Output Total 60 50 Balance 540 490 Weight 72 kg Intake: Oral 600 540 Output: Urine 60 50 Other: Voiding Method Indwelling Catheter Indwelling Catheter Indwelling Catheter # Voids 0 # Bowel Movements 1 - Labs CBC & Chem 7: 06/20/20 08:15 06/24/20 10:31 Labs: Abnormal Lab Results - Last 24 Hours (Table) 06/23/20 06/24/20 06/24/20 Range/Units 16:54 10:31 11:42 Sodium 127 L (137-145) mmol/L Potassium 5.2 H (3.5-5.1) mmol/L Chloride 92 L (98-107) mmol/L Carbon Dioxide 20 L (22-30) mmol/L BUN 96 H (7-17) mg/dL Creatinine 5.38 H (0.52-1.04) mg/dL Glucose 47 L* (74-99) mg/dL POC Glucose (mg/dL) 68 L 62 L (75-99) mg/dL Calcium 6.5 L (8.4-10.2) mg/dL Phosphorus 8.4 H (2.5-4.5) mg/dL Total Bilirubin 6.0 H (0.2-1.3) mg/dL AST 133 H (14-36) U/L ALT 50 H (4-34) U/L Alkaline Phosphatase 269 H (38-126) U/L Total Protein 5.5 L (6.3-8.2) g/dL Albumin 1.9 L (3.5-5.0) g/dL 06/24/20 06/24/20 Range/Units 11:57 12:14 Sodium (137-145) mmol/L Potassium (3.5-5.1) mmol/L Chloride (98-107) mmol/L Carbon Dioxide (22-30) mmol/L BUN (7-17) mg/dL Creatinine (0.52-1.04) mg/dL Glucose (74-99) mg/dL POC Glucose (mg/dL) 64 L 256 H (75-99) mg/dL Calcium (8.4-10.2) mg/dL Phosphorus (2.5-4.5) mg/dL Total Bilirubin (0.2-1.3) mg/dL AST (14-36) U/L ALT (4-34) U/L Alkaline Phosphatase (38-126) U/L Total Protein (6.3-8.2) g/dL Albumin (3.5-5.0) g/dL Assessment and Plan Plan: Assessment: 1. Acute kidney injury secondary to septic ATN. Oliguric. Renal function continues to worsen. Creatinine 5.38 today. Creatinine in September 2016 was 0.8. 2. Lower extremity cellulitis and ischemia with history of stents. 3. Hypervolemic hyponatremia. 4. Metabolic acidosis secondary to acute kidney injury maintained on bicarb drip. Better. 5. Hyperkalemia secondary to acute kidney injury and metabolic acidosis. 6. Hyperphosphatemia secondary to acute kidney injury. Plan: Patient and her family continue to refuse renal replacement therapy. Plan to proceed with hospice.
--- NOTE | 2020-06-24 14:28 | PN ---
PROGRESS NOTE DATE OF SERVICE: 06/24/2020 REASON FOR FOLLOWUP: Right leg wound and cellulitis. INTERVAL HISTORY: Patient was seen on rounds early this afternoon. The patient has been afebrile. She is hypertensive, slightly sleepy, lethargic, unable to provide any history. No vomiting, diarrhea reported or any other changes reported by the nursing staff. PHYSICAL EXAMINATION: Blood pressure 92/55 with a pulse of 84, temperature of 96.8. She is 94% on room air. General description is an elderly female, lying in bed in no distress. RESPIRATORY SYSTEM: Unlabored breathing, clear to auscultation anteriorly. HEART: S1, S2. Regular rate and rhythm. ABDOMEN: Soft, no tenderness. Right leg is currently dressed up. Minimal drainage on the dressing. LABS: BUN of 96, creatinine 4.38. DIAGNOSTIC IMPRESSION AND PLAN: Patient with right lower extremity wound and cellulitis. Culture positive back to Enterococcus faecalis. The patient has been treated with Zosyn. The patient did have worsening of her renal failure and the family has decided to go against dialysis and leading toward hospice. If that is this case, antibiotic will be safely discontinued. was at bedside, his questions and concern were answered. MMODL / IJN: [id number] /
--- NOTE | 2020-06-25 07:38 | CDI ---
Documentation Clarification Form Date: 06/25/20 From: Autumn Roblero Phone: If you have a question about this query, please contact Natasha Oilver, [employer] at [phone] between 8am and 5pm. Admit Date: 06/14/20 Discharge Date: 06/24/20 Patient Name: NATALIE ROME Visit Number: [id number] ATTENTION: The Clinical Documentation Specialists (CDI) and [facility] Coding Staff appreciate your assistance in clarifying documentation. Please respond to the clarification below the line at the bottom and electronically sign. The CDI & [facility] Coding staff will review the response and follow-up if needed. Please note: Queries are made part of the Legal Health Record. If you have any questions, please contact the author of this message via ITS. Dear Dr. Charla Bowles, Altered Mental Status was documented in the 06/24 progress note and documentation of confusion in earlier progress notes starting on 06/15. History/Risk Factors: sepsis, septic shock, ATN, hyperkalemia, acute shock liver, aspiration pneumonia, ASPVD bilateral extremities with gangrene, alcoholic liver disease with ascites Clinical Indicators: Patient is confused, but is responsive to pain. Labs: K-7.0, CO2-<5, Cr-3.34, glucose-23, plasma lactic acid-10.1 Treatment: IV fluids, IV antibiotics In your professional opinion, please clarify the etiology of the Altered Mental Status, if known. Delirium (specify cause): Dementia (if know, specify Type and if with/without Behavioral Disturbance) Encephalopathy (specify Type and Underlying Medical Illness) Other condition (please specify) Unable to determine Toxic encephalopathy from medications MTDD
== END 2020-06-24 13:52 | disposition hospice, inpatient (51) | DRG 871 ==
LOC: EC 00:14 → 3SCARD 05:34
PROVIDERS: ADMIT Hospitalist; ATTEND Hospitalist
DX: A41.9 Sepsis, unspecified organism (principal); R65.21 Severe sepsis with septic shock; N17.0 Acute kidney failure with tubular necrosis; K72.00 Acute and subacute hepatic failure without coma; J69.0 Pneumonitis due to inhalation of food and vomit; G92 Toxic encephalopathy; I70.262 Atherosclerosis of native arteries of extremities with gangrene, left leg; I70.261 Atherosclerosis of native arteries of extremities with gangrene, right leg; E87.2 Acidosis; R18.8 Other ascites; E87.1 Hypo-osmolality and hyponatremia; L97.121 Non-pressure chronic ulcer of left thigh limited to breakdown of skin; L97.211 Non-pressure chronic ulcer of right calf limited to breakdown of skin; I83.212 Varicose veins of right lower extremity with both ulcer of calf and inflammation; I83.221 Varicose veins of left lower extremity with both ulcer of thigh and inflammation; L03.115 Cellulitis of right lower limb; L03.116 Cellulitis of left lower limb; E83.39 Other disorders of phosphorus metabolism; D63.8 Anemia in other chronic diseases classified elsewhere; K70.9 Alcoholic liver disease, unspecified; F10.129 Alcohol abuse with intoxication, unspecified; Z66 Do not resuscitate; Z51.5 Encounter for palliative care; E87.5 Hyperkalemia; B95.2 Enterococcus as the cause of diseases classified elsewhere; B96.89 Other specified bacterial agents as the cause of diseases classified elsewhere; E86.1 Hypovolemia; I10 Essential (primary) hypertension; K21.9 Gastro-esophageal reflux disease without esophagitis; E16.2 Hypoglycemia, unspecified; Y90.3 Blood alcohol level of 60-79 mg/100 ml; S41.112A Laceration without foreign body of left upper arm, initial encounter; S41.111A Laceration without foreign body of right upper arm, initial encounter; S90.822A Blister (nonthermal), left foot, initial encounter; S90.821A Blister (nonthermal), right foot, initial encounter; E87.70 Fluid overload, unspecified; H93.19 Tinnitus, unspecified ear; T50.905A Adverse effect of unspecified drugs, medicaments and biological substances, initial encounter; M19.90 Unspecified osteoarthritis, unspecified site; Z79.899 Other long term (current) drug therapy; Z87.891 Personal history of nicotine dependence; Z87.11 Personal history of peptic ulcer disease; Z95.828 Presence of other vascular implants and grafts; Z96.642 Presence of left artificial hip joint; Z87.39 Personal history of other diseases of the musculoskeletal system and connective tissue; Z98.890 Other specified postprocedural states; Z91.048 Other nonmedicinal substance allergy status
CPT/HCPCS: 36415; 71045; 71046; 76770; 80048; 80053; 80320; 81001; 82248; 82533; 83605; 83735; 84100; 84132; 85025; 85027; 86022; 86704; 86706; 87040; 87070; 87075; 87077; 87186; 87205; 87340; 93005; 96365; 96366; 96367; 96368; 96374; 96375; 96376; 99291

== ENCOUNTER 2020-06-24 13:34 | Inpatient (IN) | payer MEDICAID ==
[2020-06-24] MEDS ORDERED: ACETAMINOPHEN SUPPOSITORY 650 MG SUPP RECTAL PRN (13:41)
[2020-06-24] MEDS ORDERED: LORazepam 2 MG/ML INJ IV PRN (13:41)
[2020-06-24] MEDS: MORPHINE SULFATE (100 MG/2 ML) 100 MG in SODIUM CHLORIDE 0.9% 100 ML IV SCH (15:33)
[2020-06-24] MEDS: ATROPINE OPHTH SOLN 1% 5ML BTL SUBLINGUAL PRN (21:29)
[2020-06-25] MEDS: ATROPINE OPHTH SOLN 1% 5ML BTL SUBLINGUAL PRN ×2 (03:29→20:20)
[2020-06-25 08:06] VITALS: BP 61/47
--- NOTE | 2020-06-25 16:42 | P.HPIM ---
History of Present Illness Patient is admitted for bilateral lower extremity wounds and necrosis of the both legs. Patient presented with septic shock shock improved but patient continued to have acute tubular necrosis and renal failure needing hemodialysis. The only options are bilateral lower limb amputation along with initiation of hemodialysis and family declined that option instead patient was made hospice and patient is admitted to hospice. Patient is presently on IV morphine drip Review of Systems Unable to assess Past Medical History Past Medical History: GERD/Reflux, Hypertension, Vascular Disorder Additional Past Medical History / Comment(s): hx bleeding ulcer. wound left foot. lt leg swelling since bypass. loud ringing in ears History of Any Multi-Drug Resistant Organisms: None Reported Past Surgical History: Joint Replacement Additional Past Surgical History / Comment(s): lt leg bypass x3 with stent in groin, lt hip replacement, rt foot with hardware Past Anesthesia/Blood Transfusion Reactions: Previous Problems w/ Anesthesia Additional Past Anesthesia/Blood Transfusion Reaction / Comment(s): after foot surgery developed loud ringing in ears which continues Past Psychological History: No Psychological Hx Reported Past Alcohol Use History: Daily Past Drug Use History: None Reported - Past Family History Mother Family Medical History: Unable to Obtain Medications and Allergies Home Medications Medication Instructions Recorded Confirmed Type Ferrous Sulfate [Feosol] 325 mg PO DAILY 07/19/19 06/24/20 History amLODIPine [Norvasc] 5 mg PO DAILY 07/19/19 06/24/20 History Furosemide [Lasix] 20 mg PO DAILY 06/14/20 06/24/20 History Vit C/E/Zn/Coppr/Lutein/Zeaxan 2 cap PO DAILY 06/14/20 06/24/20 History [Preservision Areds 2 Softgel] Allergies Allergy/AdvReac Type Severity Reaction Status Date / Time adhesive Allergy skin Verified 06/24/20 14:52 breaks down Physical Exam Vitals: Vital Signs Pulse Pulse Resp BP Pulse Ox 06/25/20 16:34 95 86 06/25/20 15:53 6 L 06/25/20 15:51 86 6 L 91 L 06/25/20 12:04 76 6 L 90 L 06/25/20 11:35 6 L 06/25/20 11:34 5 L 06/25/20 09:05 83 5 L 06/25/20 08:00 83 5 L 61/47 90 L 06/25/20 04:00 83 8 L 94 L 06/24/20 23:55 85 8 L 94 L 06/24/20 20:00 74 10 L 96 06/24/20 16:50 95 12 Intake and Output 06/25/20 06/25/20 06/25/20 06:59 14:59 22:59 Intake Total 50.354 Output Total 0 50 Balance 50.354 -50 Intake: Intake, IV Titration 50.354 Amount Morphine Sulfate (100 mg/ 50.354 2 ml) 100 mg In Sodium Chloride 0.9% 100 ml @ 1 MG/HR 1.02 mls/hr IV . Q24H [facility] Rx#:[id number] Oral 0 Output: Urine 0 50 Other: Voiding Method Indwelling Catheter Indwelling Catheter Indwelling Catheter Weight 70.5 kg PHYSICAL EXAMINATION: GENERAL: Patient is comfortable and IV morphine. HEENT: Pupils are constricted CARDIOVASCULAR: S1 and S2 present. No murmurs, rubs, or gallops. PULMONARY: Chest is clear to auscultation, no wheezing or crackles. NEUROLOGICAL: Patient is on morphine drip comfortable and appeared to be sedated sleeping. SKIN: No rashes. Assessment and Plan Plan: Assessment and Plan Plan: Severe sepsis or septic shock: Cellulitis and bilateral lower limb necrosis -Acute renal failure with acute tubular necrosis Patient is presently hospice. Can use IV morphine drip
[2020-06-25] MEDS: MORPHINE SULFATE (100 MG/2 ML) 100 MG in SODIUM CHLORIDE 0.9% 100 ML IV SCH (20:20)
[2020-06-26] MEDS: MORPHINE SULFATE (100 MG/2 ML) 100 MG in SODIUM CHLORIDE 0.9% 100 ML IV SCH (00:07)
[2020-06-26 00:30] VITALS: RESP 10
[2020-06-26] MEDS: ATROPINE OPHTH SOLN 1% 5ML BTL SUBLINGUAL PRN (01:16)
[2020-06-26 03:59] VITALS: PULSE 82
--- NOTE | 2020-06-26 16:07 | P.DS ---
Providers Date of admission: 06/24/20 14:14 Attending physician: Per Bowles [facility] Course: Patient is under hospice care. Patient earlier today morning. Please refer to nursing documentation for exact time of Plan - Discharge Summary New Discharge Prescriptions: No Action amLODIPine [Norvasc] 5 mg PO DAILY Ferrous Sulfate [Feosol] 325 mg PO DAILY Vit C/E/Zn/Coppr/Lutein/Zeaxan [Preservision Areds 2 Softgel] 2 cap PO DAILY Furosemide [Lasix] 20 mg PO DAILY Discharge Medication List Ferrous Sulfate [Feosol] 325 mg PO DAILY 07/19/19 [History] amLODIPine [Norvasc] 5 mg PO DAILY 07/19/19 [History] Furosemide [Lasix] 20 mg PO DAILY 06/14/20 [History] Vit C/E/Zn/Coppr/Lutein/Zeaxan [Preservision Areds 2 Softgel] 2 cap PO DAILY 06/14/20 [History] Discharge Disposition: - Preliminary Cause of Preliminary Cause of : Cellulitis and skin was soft tissue necrosis of bilateral lower extremities
== END 2020-06-26 07:27 | disposition expired | DRG 951 ==
LOC: 3SCARD 14:14
PROVIDERS: ADMIT Internal Medicine; ATTEND Internal Medicine
DX: Z51.5 Encounter for palliative care (principal); N17.0 Acute kidney failure with tubular necrosis; R65.21 Severe sepsis with septic shock; A41.9 Sepsis, unspecified organism; I96 Gangrene, not elsewhere classified; L03.116 Cellulitis of left lower limb; L03.115 Cellulitis of right lower limb; L97.529 Non-pressure chronic ulcer of other part of left foot with unspecified severity; I10 Essential (primary) hypertension; H93.13 Tinnitus, bilateral; K21.9 Gastro-esophageal reflux disease without esophagitis; Z79.899 Other long term (current) drug therapy; Z96.642 Presence of left artificial hip joint; Z91.048 Other nonmedicinal substance allergy status